=== PATIENT | female | born 1935 | race Caucasian/White ===

== ENCOUNTER → 2023-04-15 13:17 | Outpatient (REF) | payer OTHER, SELFPAY | LOC: WDC 13:17 | PROVIDERS: ATTENDING PHYSICIAN Student in an Organized Health Care Education/Training Program | DX: Z12.31 Encounter for screening mammogram for malignant neoplasm of breast (principal) | CPT/HCPCS: 77063; 77067 ==

== ENCOUNTER → 2023-05-02 10:36 | Outpatient (REF) | payer OTHER, SELFPAY ==
[2023-05-02 12:53] LABS: ALT (SGPT) 36 U/L (0-35); AST (SGOT) 37 U/L (14-36); Albumin 4.4 g/dl (3.5-5.0); Alkaline Phosphatase 94 U/L (38-126); Blood Urea Nitrogen 26 mg/dl (7-17); Calcium 10.1 mg/dl (8.4-10.2); Carbon Dioxide 26 mmol/L (22-30); Chloride 103 mmol/L (98-107); Glucose 101 mg/dl (70-99); Potassium 4.3 mmol/L (3.5-5.1); Sodium 142 mmol/L (135-145); Total Bilirubin 1.1 mg/dl (0.2-1.3); Total Protein 7.5 g/dl (6.3-8.2)
[2023-05-02 13:30] LABS: Folate 12.6 ng/ml (2.76-20); Vitamin B12 277 pg/ml (239-931)
[2023-05-02 13:32] LABS: % Basophils 0.5 % (0-2); % Eosinophils 2.9 % (0-6); % Immature Granulocytes 0.4 % (0-0.5); % Lymphocytes 20.4 % (20.5-51.1); % Monocytes 7.7 % (1.7-9.3); % Neutrophils 68.1 % (42.2-75.2); Absolute Eosinophils 0.2 10^3/uL (0-0.7); Absolute Lymphocytes 1.6 10^3/uL (1.2-3.4); Absolute Monocytes 0.6 10^3/uL (0.1-0.6); Absolute Neutrophils 5.5 10^3/uL (1.4-6.5); Hematocrit 40.2 % (37.0-47.0); Hemoglobin 12.9 g/dL (12.0-16.0); Mean Corp Hgb Conc. 32.1 g/dL (33.0-37.0); Mean Corpuscular Volume 93.5 fL (81.0-99.0); Mean Platelet Volume 11.6 fL (7.4-10.4); Nucleated Red Blood Cells % 0 %; Platelet Count 312 10^3/uL (130-400); Red Cell Dist. Width 13.7 % (11.5-14.5)
== END ==
LOC: REG 10:36
PROVIDERS: ATTENDING PHYSICIAN Psychiatry & Neurology Neurology; FAMILY PHYSICIAN Student in an Organized Health Care Education/Training Program
DX: R41.3 Other amnesia (principal)
CPT/HCPCS: 36415; 80053; 82607; 82746; 84443; 85025

== ENCOUNTER → 2023-07-03 09:34 | Outpatient (REF) | payer OTHER, SELFPAY ==
[2023-07-03 10:46] LABS: % Basophils 0.6 % (0-2); % Eosinophils 2.3 % (0-6); % Immature Granulocytes 0.3 % (0-0.5); % Lymphocytes 18.4 % (20.5-51.1); % Monocytes 7.1 % (1.7-9.3); % Neutrophils 71.3 % (42.2-75.2); Absolute Basophils 0.1 10^3/uL (0-0.2); Absolute Eosinophils 0.2 10^3/uL (0-0.7); Absolute Lymphocytes 1.6 10^3/uL (1.2-3.4); Absolute Monocytes 0.6 10^3/uL (0.1-0.6); Absolute Neutrophils 6.1 10^3/uL (1.4-6.5); Hemoglobin 13.1 g/dL (12.0-16.0); Mean Corp Hgb Conc. 32.8 g/dL (33.0-37.0); Mean Corpuscular Volume 91.5 fL (81.0-99.0); Mean Platelet Volume 10.9 fL (7.4-10.4); Nucleated Red Blood Cells % 0 %; Platelet Count 277 10^3/uL (130-400); Red Blood Cell Count 4.37 10^6/uL (4.20-5.40); Red Cell Dist. Width 13.1 % (11.5-14.5); White Blood Cell Count 8.6 10^3/uL (4.8-10.8)
[2023-07-03 11:17] LABS: ALT (SGPT) 34 U/L (0-35); AST (SGOT) 37 U/L (14-36); Albumin 4.5 g/dl (3.5-5.0); Alkaline Phosphatase 83 U/L (38-126); Blood Urea Nitrogen 25 mg/dl (7-17); Carbon Dioxide 28 mmol/L (22-30); Chloride 103 mmol/L (98-107); Glucose 97 mg/dl (70-99); Potassium 4.5 mmol/L (3.5-5.1); Sodium 141 mmol/L (135-145); Total Bilirubin 0.9 mg/dl (0.2-1.3); Total Protein 7.6 g/dl (6.3-8.2); eGFR 44.08
== END ==
LOC: RAD 09:34
PROVIDERS: ATTENDING PHYSICIAN Internal Medicine; FAMILY PHYSICIAN Student in an Organized Health Care Education/Training Program
DX: Z13.820 Encounter for screening for osteoporosis (principal); M81.0 Age-related osteoporosis without current pathological fracture; E55.9 Vitamin D deficiency, unspecified; M06.4 Inflammatory polyarthropathy; M15.9 Polyosteoarthritis, unspecified
CPT/HCPCS: 36415; 77080; 80053; 85025

== ENCOUNTER → 2023-11-06 10:15 | Outpatient (REF) | payer OTHER, SELFPAY | LOC: RCS 10:15 | PROVIDERS: ATTENDING PHYSICIAN Nuclear Medicine Nuclear Cardiology; FAMILY PHYSICIAN Family Medicine | DX: I48.91 Unspecified atrial fibrillation (principal); R55 Syncope and collapse; I34.0 Nonrheumatic mitral (valve) insufficiency; I08.0 Rheumatic disorders of both mitral and aortic valves; I42.9 Cardiomyopathy, unspecified | CPT/HCPCS: 71046; 93306 ==

== ENCOUNTER → 2024-02-22 07:14 | Outpatient (REF) | payer OTHER, SELFPAY ==
[2024-02-22 09:11] LABS: ALT (SGPT) 20 U/L (0-35); AST (SGOT) 24 U/L (14-36); Albumin 4.2 g/dl (3.5-5.0); Alkaline Phosphatase 78 U/L (38-126); Blood Urea Nitrogen 23 mg/dl (7-17); Calcium 9.4 mg/dl (8.4-10.2); Carbon Dioxide 28 mmol/L (22-30); Chloride 101 mmol/L (98-107); Glucose 96 mg/dl (70-99); HDL Cholesterol 73 mg/dl; LDL Cholesterol, Calculated 65 mg/dl; Potassium 3.9 mmol/L (3.5-5.1); Sodium 141 mmol/L (135-145); Total Bilirubin 0.7 mg/dl (0.2-1.3); Total Cholesterol 162 mg/dl (50-199); Total Protein 7.1 g/dl (6.3-8.2); Triglyceride 123 mg/dl (10-149); Very Low Density Lipoprotein 24 mg/dl (0-30); eGFR 36.64
== END ==
LOC: REG 07:14
PROVIDERS: ATTENDING PHYSICIAN Nuclear Medicine Nuclear Cardiology
DX: I10 Essential (primary) hypertension (principal); E78.5 Hyperlipidemia, unspecified
CPT/HCPCS: 36415; 80053; 80061

== ENCOUNTER → 2024-04-21 10:35 | Outpatient (REF) | payer OTHER, SELFPAY | LOC: WDC 10:35 | PROVIDERS: ATTENDING PHYSICIAN Family Medicine | DX: Z12.31 Encounter for screening mammogram for malignant neoplasm of breast (principal) | CPT/HCPCS: 77063; 77067 ==

== ENCOUNTER 2024-09-18 19:05 | Inpatient (IN) | payer OTHER, SELFPAY ==
[2024-09-18] VITALS (21 sets, daily range): BP systolic 129–152; BP diastolic 66–118; BMI 23.4; BMI 22.7
[2024-09-18 11:53] LABS: Hematocrit 36.3 % (37.0-47.0); Hemoglobin 11.9 g/dL (12.0-16.0); Mean Corp Hgb Conc. 32.8 g/dL (33.0-37.0); Mean Corpuscular Volume 89.0 fL (81.0-99.0); Nucleated Red Blood Cells % 0 %; Platelet Count 249 10^3/uL (130-400); Red Cell Dist. Width 13.6 % (11.5-14.5)
[2024-09-18 12:10] LABS: ALT (SGPT) 34 U/L (0-35); AST (SGOT) 30 U/L (14-36); Albumin 4.1 g/dl (3.5-5.0); Alkaline Phosphatase 92 U/L (38-126); Blood Urea Nitrogen 24 mg/dl (7-17); Calcium 9.2 mg/dl (8.4-10.2); Carbon Dioxide 23 mmol/L (22-30); Chloride 105 mmol/L (98-107); Glucose 142 mg/dl (70-99); Potassium 3.8 mmol/L (3.5-5.1); Sodium 138 mmol/L (135-145); Total Protein 7.0 g/dl (6.3-8.2); eGFR 48.63
[2024-09-18 12:33] LABS: Troponin I 0.050 ng/ml
--- NOTE | 2024-09-18 13:02 | ED.GENMED ---
History of Present Illness
General
Chief Complaint: Weakness
Source: patient
Exam Limitations: none
Time Seen by Provider: 09/18/24 12:57
Nursing documentation reviewed up to this point in time: agreed with
History of Present Illness
History of Present Illness:
Patient is 89-year-old female with history of A-fib, CHF hypertension left bundle branch block left breast cancer presents to the ER for evaluation of weakness. Patient has been weak for months of most a year. She also reports she has had
intermittent discomfort in her chest for months worse over the past 2 weeks this is not new. She denies chest pain now. This morning she felt very weak and called her daughter to come to the hospital. She denies any associated fever or chills.
Denies any weight loss. She denies any recent fever chills cough. She does have nausea after eating and therefore has not been eating a lot.
Family at bedside and they all agree with the patient that she despite having weakness for months has been more weak over the past 1 to 2 weeks. She has not been eval by her family doctor for this.
She denies any shortness of breath. She does take Eliquis for A-fib and has not missed a dose. She is unaware that she is in A-fib but believes she is in chronic A-fib.
Past History
Past History
ED Past Medical History: Arrthythmia, Cancer, CHF and HTN
ED Past Surgical History: Other (Lumpectomy)
Social History
Tobacco: Non-smoker
Alcohol: Daily
Drug: None
Personal: Other (With daughter)
Living: alone
Employment: Retired
Family History
Family History: Other (Noncontributory)
Phy Exam
General Physical Exam
General Presentation: no apparent distress
General age: appears stated age
General Skin: warm and dry
General Habitus: normal
General Mental: alert
General Hydration: appears well hydrated
Cardiovascular Exam
Cardiovascular Exam: no murmur, normal peripheral pulses and irregularly irregular
Pulmonary Exam
Pulmonary Exam: lungs clear and no respiratory distress
Neurological Exam
Neurological Exam: alert and oriented x3
Musculoskeletal Exam
Musculoskeletal Exam: full ROM
Skin Exam
Skin Exam: normal color and warm/dry
Psychiatric Exam
Psychiatric Exam: normal mood/affect
Course
Orders/Labs/Results
Orders:
Orders
09/18/24 11:20
Electrocardiogram (*1) Urgent
Reason for Study: Chest Pain
EKG- Treatment ONCE
09/18/24 11:47
Complete Blood Count/With Diff Urgent
Comprehensive Metabolic Panel Urgent
Lipase Urgent
Comment: ADD ON
Pro-BNP [NT-proBNP] Urgent
TSH Reflex To Free T4 Urgent
Troponin I Urgent
09/18/24 13:23
Add On- LAB Urgent
Tests Added?: tsh with reflexive t4
UA Reflex to Culture [Urinalysis Reflex To Culture] Urgent
Date Specimen was Collected: 09/18/24
Time Specimen was Collected: 14:55
09/18/24 14:41
Chest [CR Chest - 2 Views ] Urgent
Comment:
Reason For Exam: weakness elevated bnp
09/18/24 14:42
Add On- LAB Urgent
Tests Added?: lipase
09/18/24 15:38
Electrocardiogram (*1) Stat
Reason for Study: Other
Other Reason for Exam: chest pain
EKG- Treatment ONCE
09/18/24 15:45
Troponin I Urgent
09/18/24 16:31
Furosemide [Lasix] 40 mg IV NOW STA
09/18/24 16:57
Echo 2D MMode Color/Doppler Routine
Reason for Study: CHF
Abnormal Lab Results
09/18/24 09/18/24
11:47 15:45
RBC 4.08 L 10^6/uL
(4.20-5.40)
Hgb 11.9 L g/dL
(12.0-16.0)
Hct 36.3 L %
(37.0-47.0)
MCHC 32.8 L g/dL
(33.0-37.0)
MPV 11.0 H fL
(7.4-10.4)
Absolute Neuts (auto) 8.4 H 10^3/uL
(1.4-6.5)
Absolute Monos (auto) 0.9 H 10^3/uL
(0.1-0.6)
Neutrophils % 78.9 H %
(42.2-75.2)
Lymphocytes % 11.9 L %
(20.5-51.1)
BUN 24 H mg/dl
(7-17)
Creatinine 1.1 H mg/dL
(0.6-1.0)
Glucose 142 H mg/dl
(70-99)
Total Bilirubin 2.8 H mg/dl
(0.2-1.3)
Troponin I 0.050 H* ng/ml 0.096 H* D ng/ml
09/18/24 11:47
09/18/24 11:47
Vital Signs
Initial and Last Documented VS:
Initial Vital Signs
Temp Pulse Resp BP Pulse Ox
98.3 F 104 16 147/94 98
09/18/24 11:38 09/18/24 11:38 09/18/24 11:38 09/18/24 11:38 09/18/24 11:38
Last Documented Vital Signs
Temp Pulse Resp BP Pulse Ox
98.3 F 101 26 140/85 96
09/18/24 11:38 09/18/24 16:40 09/18/24 15:10 09/18/24 16:40 09/18/24 15:10
MDM/Problems Addressed
Differential Diagnosis Includes:
Not limited to anemia, ACS, dehydration, electrolyte abnormality
MDM/Problems Addressed:
As documented patient is a 89-year-old female with history of A-fib on anticoagulation, CHF, on Lasix presents to the ER for evaluation. She complains of months of weakness family reports weakness worse over the past 1 to 2 weeks. Intermittent
discomfort in her chest for the past 1 to 2 weeks. Cardiac troponin is negative however patient is not asymptomatic now with no chest pain.
Cardiac troponin is elevated however no acute elevation on EKG. Patient is in A-fib believes she is in chronic A-fib she is followed by Dr. Mercado.
Patient's renal function minimally elevated chest x-ray does show mild CHF with an elevated BNP of 15,600. Will admit for elevated troponin weakness CHF. Heart rate intermittently over 100 while here in A-fib. Patient also with elevated BUN
though normal LFTs has had some intermittent decreased appetite and nausea issues with eating
Chronic conditions affecting care:
A-fib on Eliquis, CHF on Lasix
*Radiology
Radiology exam reviewed: radiology read reviewed
*Pulse Oximetry
SaO2: 98
Oxygen Mode of Delivery: Room air
Patient hypoxic: no
*EKG
Interpretation: abnormal
Comparison EKG: no changes
Heart Rate: 104
Rate: tachycardiac
Rhythm: a-fib
QRS Pattern: left bundle branch block
Ischemia: non-specific ST changes
*Critical Care Note
Total Time (30-74mins, 75-104mins- exclusive of procedures): Not Applicable
Data Reviewed
Review of Other/Old Records Reveals: Labs and Discharge Summary
Source: patient and family
Patient Management
Discussion with other providers: [facility] (Dr Parson, cardiology )
ED Attending Note
-
Portions of this chart may have been created with voice recognition software.� Occasional wrong word or��sound alike� substitutions may have occurred due to the inherent limitations of voice recognition software.
Discharge Plan
Departure
Patient Disposition: Admit
Date of Disposition: 09/18/24
Time of Disposition: 16:41
Admit to: Telemetry
Admit to doctor: hospitalist
Presentation/result/management discussed w/ accepting MD/DO: Hospitalist
Patient with high blood pressure during this ER visit?: Yes
Condition: Fair
Covid-19: Not Applicable
Discharge Problem:
Weakness, Chest pain, CHF (congestive heart failure)
Prescriptions:
No Action
PreserVision AREDS-2 1 EACH capsule
1 ea PO BID
metoprolol succinate 100 MG tablet extended release 24 hr
100 mg PO DAILY
amiodarone [Pacerone] 200 MG tablet
200 mg PO DAILY
atorvastatin 10 mg tablet
10 mg PO DAILY
vitamin E 268 mg (400 unit) Capsule
268 mg PO DAILY
spironolactone 25 mg Tablet
12.5 mg PO DAILY
Eliquis 2.5 mg Tablet
2.5 mg PO BID
lisinopril 5 mg Tablet
5 mg PO DAILY
furosemide [Lasix] 20 mg Tablet
10 mg PO DAILY
Referrals:
Maynor Grace DO [Family Provider, Family Practice]
Interventions
Interventions:
*Risk Screen - Suicide Last Done: 09/18/24 11:38
*General Assessment Last Done: 09/18/24 13:48
*Neglect/Abuse Screening Last Done: 09/18/24 13:48
*ED- Fall Risk Assessment Last Done: 09/18/24 13:48
*ED COVID-19 Vaccine History Last Done: 09/18/24 13:48
ED- Cardiac Assessment Last Done: 09/18/24 13:48
ED- Neurological Assessment Last Done: 09/18/24 13:48
ED- Pulmonary Assessment Last Done: 09/18/24 13:48
Discharge Date and Time
Print Language: INDONESIAN
[2024-09-18 15:17] LABS: Lipase 33 U/L (23-300)
[2024-09-18 16:17] LABS: Troponin I 0.096 ng/ml
[2024-09-18] MEDS: LASIX 40 MG IV (16:40)
--- NOTE | 2024-09-18 17:35 | CON.CAR ---
Consultation
Consultation Request
Date/Time Consultation Requested: 09/18/2024, 1640
Date/Time Consultation Performed: 09/18/2024, 1700
Requesting Provider: Juli
Performing Provider: Blank
Reason for Consultation: AFRVR, HF
Medical History
-
Chief Complaint: Fatigue, decreased appetite
History of Present Illness:
Patient is a pleasant 89 female with a past medical history significant for heart failure with recovered EF, hypertension, paroxysmal atrial fibrillation, valvular heart disease including MR, left bundle branch block, dyslipidemia, prior syncope,
chronic amiodarone/anticoagulation who presents due to worsening fatigue, decreased appetite found to be in acute on chronic heart failure and atrial fibrillation with rapid ventricular response. In discussion with patient and her family, she
reports decreased activity, appetite, fatigue for some time. She notes mild discomfort in the chest occurring at rest but does not recur with activity and exertion. She reports that the discomfort is an aching sensation. She denies any PND,
orthopnea, or focal deficits. Patient and family do state that she has significantly decreased appetite but has not noticed weight change. On admission, patient was noted have a BNP of 15,600 and initial troponin of 0.050 which up trended to
0.096. Remaining patient lab work unremarkable. Patient's chest x-ray demonstrated cardiomegaly with mild CHF and filar a small bilateral pleural effusions. EKG on admission demonstrates atrial fibrillation 101 bpm with a bundle branch block.
Review of telemetry demonstrates heart rate 100-130 bpm. Patient is a non-smoker, weekly alcohol, no illicits. Patient has a positive family history of heart disease.
Past Medical History
Past Medical History: Other (See HPI)
Past Surgical History: Other (Orthopedics; appendectomy; lumpectomy; cardioversion 09/2017; cardiac cath 08/2018)
Social History
Tobacco: Non-Smoker
Alcohol: Occasional
Drug: None
Living: Alone
Employment: Retired
Family History
Family History: CAD
Allergies / Home Medications
Allergy/AdvReac Type Severity Reaction Status Date / Time
Penicillins Allergy LEG Verified 09/18/24 11:38
SWELLING
62 YEARS
AGO
�Medication �Instructions �Recorded �Confirmed �Type
metoprolol succinate 100 mg 100 mg PO DAILY 09/30/17 09/18/24 History
tablet,extended release 24 hr
vit C 250 mg-vit E 90 mg-zinc 40 1 ea PO BID 09/30/17 09/18/24 History
mg-copper 1 [id number]
capsule (PreserVision AREDS-2)
amiodarone 200 mg tablet (Pacerone) 200 mg PO DAILY 09/11/18 09/18/24 History
atorvastatin 10 mg tablet 10 mg PO DAILY 11/02/22 09/18/24 History
vitamin E 268 mg (400 unit) capsule 268 mg PO DAILY 11/02/22 09/18/24 History
apixaban 2.5 mg tablet (Eliquis) 2.5 mg PO BID 12/10/22 09/18/24 History
spironolactone 25 mg tablet 12.5 mg PO DAILY 12/10/22 09/18/24 History
furosemide 20 mg tablet (Lasix) 10 mg PO DAILY 09/18/24 09/18/24 History
lisinopril 5 mg tablet 5 mg PO DAILY 09/18/24 09/18/24 History
Review of Systems
-
History Source: Patient
All other systems: Negative unless noted
Constitutional: Fatigue
EENT: No Symptoms
Respiratory: No Symptoms
Cardiac: Chest Pain and Palpitations
Abdomen/GI: Nausea and Anorexia
: No Symptoms
Musculoskeletal: No Symptoms
Skin: No Symptoms
Neurological: No Symptoms
Endocrine: No Symptoms
Hematologic/Lymphatic: No Symptoms
Physical Exam
Vital Signs
Temp Pulse Resp BP Pulse Ox
98.3 F 96 16 140/85 99
09/18/24 11:38 09/18/24 17:15 09/18/24 17:15 09/18/24 16:40 09/18/24 15:30
Lab Results
09/18/24 11:47
09/18/24 11:47
Troponin I 0.096 ng/ml H* D 09/18/24 15:45
Jew-G-Cyuqopxrcqq Pept 51699 pg/ml 09/18/24 11:47
Physical Exam:
GENERAL: no acute distress, cachectic
EYE: sclera anicteric
NECK: Supple, no JVD, no carotid bruit appreciated
ENT: normal nose, moist mucosal membranes
CARDIAC: Irregularly irregular, +S1/S2, 2/6 systolic murmur; no rubs, or gallops
CHEST/PULMONARY: Normal effort, bibasilar crackles
ABDOMEN: Soft, without focal tenderness or distention
NEUROLOGICAL: Alert and oriented x3
SKIN: Warm and dry, no rash
PSYCH: Normal and appropriate interaction.
Impression / Plan
-
PCP: Dr. Shaina Hernandez
Intellectual Property Counsel: Dr Tae Mercado
Impression
Atrial fibrillation with RVR
Acute on chronic heart failure
Hypertension
Cardiomyopathy with recovered EF
Left bundle branch block
Dyslipidemia
Valvular heart disease
GERD
Osteoporosis
Arthritis
Fatigue
Decreased appetite
GLORIA 10/22/2018: Mildly reduced LV systolic function EF 40-45%, biatrial enlargement, moderate eccentric MR, moderate TR, mild AI
Echo 11/06/2023: Small LV size, EF 59%, mild concentric LVH with discrete upper septal thickening, grade 2 diastolic dysfunction, normal RV size and function, moderate MR, mild AI, moderate to severe TR with PASP 74 mmHg
Left heart catheterization 09/17/2018: Nonobstructive CAD, mildly reduced LV systolic function, mitral regurgitation +3
Recommendations:
IV diuresis with Lasix 40 mg daily with strict intake and output, daily weights
Resume home medical therapy including amiodarone
Start cardizem gtt for rate control pending echocardiogram
Trend troponin to peak, if downtrending, can resume OAC; if continue to rise, would start heparin gtt
Check 2D echocardiogram
Infectious workup per primary service
Discussed with nursing, ED SPECIAL EDUCATION ADMINISTRATOR
Data Reviewed
-
EKG: Tracing Personally Visualized and interpreted
Radiology: Report Reviewed by me
Medical Tests (Nuc Med, Echo etc): Report Reviewed by me
Labs: Labs Reviewed by me
Old Records: Reviewed
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
[2024-09-18 18:30] LABS: Urine Character Clear (Clear)
[2024-09-18 18:37] LABS: Urine White Cell 26-30 /HPF (0-5)
[2024-09-18] MEDS: CARDIZEM 125 IV (19:51)
[2024-09-18] MEDS: OCUVITE SOFTGEL 1 CAP PO (21:00)
[2024-09-18 21:53] LABS: Troponin I 0.130 ng/ml
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
[2024-09-18 23:45] LABS: Hematocrit 34.0 % (37.0-47.0); Hemoglobin 11.5 g/dL (12.0-16.0); Mean Corp Hgb Conc. 33.8 g/dL (33.0-37.0); Mean Corpuscular Volume 86.5 fL (81.0-99.0); Platelet Count 232 10^3/uL (130-400); Red Cell Dist. Width 13.8 % (11.5-14.5)
[2024-09-18 23:59] LABS: APTT 33.0 Sec (23.4-35.0)
[2024-09-19] VITALS (8 sets, daily range): BP systolic 105–135; BP diastolic 70–89; BMI 22.4
[2024-09-19] MEDS: HEPARIN 25000 UNITS/250 ML IV
[2024-09-19] MEDS: MELATONIN 3 MG PO ×2 (00:06→23:39)
--- NOTE | 2024-09-19 01:13 | PTCARENOTE ---
Rec'd pt as admission for ED. Pt AAO*3, VSS, and AFIb on TELE monitor. Cardizem started as ordered. Pt trops elevated and rec'd order for heparin, how infusing as ordered. Pt denies any pain or discomfort, agreed to ambulate on with staff
assistance, and now resting with call romero in reach. Pt updated on plan of care. See MAR and flowchart for full pt care and assessment.
[2024-09-19 06:02] LABS: Hematocrit 33.9 % (37.0-47.0); Hemoglobin 11.3 g/dL (12.0-16.0); Mean Corp Hgb Conc. 33.3 g/dL (33.0-37.0); Mean Corpuscular Volume 87.1 fL (81.0-99.0); Nucleated Red Blood Cells % 0 %; Platelet Count 237 10^3/uL (130-400); Red Cell Dist. Width 13.6 % (11.5-14.5)
[2024-09-19 06:04] LABS: APTT 35.4 Sec (23.4-35.0)
[2024-09-19 06:10] LABS: ALT (SGPT) 32 U/L (0-35); AST (SGOT) 28 U/L (14-36); Albumin 3.6 g/dl (3.5-5.0); Alkaline Phosphatase 91 U/L (38-126); Blood Urea Nitrogen 25 mg/dl (7-17); Calcium 8.5 mg/dl (8.4-10.2); Carbon Dioxide 25 mmol/L (22-30); Chloride 105 mmol/L (98-107); Estimated Creatinine Clearance 31 ml/min; Glucose 79 mg/dl (70-99); HDL Cholesterol 44 mg/dl; LDL Cholesterol, Calculated 66 mg/dl; Potassium 3.4 mmol/L (3.5-5.1); Sodium 139 mmol/L (135-145); Total Protein 6.2 g/dl (6.3-8.2); Very Low Density Lipoprotein 18 mg/dl (0-30); eGFR 54.53
[2024-09-19 06:24] LABS: Troponin I 0.120 ng/ml
[2024-09-19] MEDS: KCL 40 MEQ PO ×2 (06:37→09:36)
--- NOTE | 2024-09-19 08:59 | W.PN.CARDCBS ---
Addendum entered and electronically signed by Markell Parson DO 09/19/24 09:40:
I saw and examined the patient.
The Chemistry Specialist's note was reviewed and I agree with the note.
Comment:
Patient resting comfortably in bed, no chest pain, shortness of breath, palpitations or weakness
GEN: No distress, awake, alert, oriented x3
HEENT: supple, anicteric, mmm, EOMI
LUNGS: few crackles bilateral bases, no wheezes/rales
CV: Irreg, S1/S2, no murmur
ABD: soft, BS+, NT/ND
EXT: No cyanosis, clubbing, edema
NEURO: Gross non-focal
SKIN: Warm, pink, dry. No rash
Telemetry AF
A/P as below
Resume beta-bowen, wean Cardizem drip
Continue anticoagulation with heparin
New cardiomyopathy with EF 40-45% and wall motion abnormality, plan for ischemic evaluation tentatively 09/21/2024
IV diuresis; monitor intake and output, daily weights
Original Note:
Today's Communication / Plan
-
Continue IV Lasix
Establish new dry weight
Echo pending
Wean off Cardizem. Resume outpatient Toprol
Continue IV heparin for now
Impression / Plan
-
PCP: Dr. Shaina Hernandez
Director Of Respiratory Therapy: Dr Tae Mercado
Impression
Paroxysmal atrial fibrillation, with RVR
Acute on chronic HFpEF
Hypertension
Cardiomyopathy with recovered EF by echo 2023
Left bundle branch block
Dyslipidemia
Valvular heart disease
GERD
Osteoporosis
Arthritis
Fatigue
Decreased appetite
GLORIA 10/22/2018: Mildly reduced LV systolic function EF 40-45%, biatrial enlargement, moderate eccentric MR, moderate TR, mild AI
Echo 11/06/2023: Small LV size, EF 59%, mild concentric LVH with discrete upper septal thickening, grade 2 diastolic dysfunction, normal RV size and function, moderate MR, mild AI, moderate to severe TR with PASP 74 mmHg
Left heart catheterization 09/17/2018: Nonobstructive CAD, mildly reduced LV systolic function, mitral regurgitation +3
Recommendations:
- Continue IV diuresis. Patient states without significant urine output. She takes Lasix 10 mg daily as an outpatient. Reports a dry weight of 130 pounds, however here 122 pounds if accurate.
- CHF education
- Currently heart rates controlled on IV Cardizem at 5. Will attempt to wean off Cardizem drip. Will resume outpatient Toprol 100 mg daily and follow heart rate control. continue OP amiodarone
- Echocardiogram pending
- Troponin peaked at 0.12. No chest pain. Currently on IV heparin, would consider transitioning back to eliquis if echo looks ok and no plans for inpatient ischemic evaluation
- resume OP lisinopril and spironolactone for history of recovered CM as BP tolerates
- could consider for CV prior to DC if no missed doses as OP
- ambulate as able
Progress Note - Director Of Respiratory Therapy
Subjective
Date of Service: September 19, 2024
No issues reported.
Objective
Labs:
09/19/24 04:46
09/19/24 04:46
Labs
Hgb 11.3 g/dL (12.0-16.0) L 09/19/24 04:46
Hct 33.9 % (37.0-47.0) L 09/19/24 04:46
Plt Count 237 10^3/uL (130-400) 09/19/24 04:46
APTT 35.4 Sec (23.4-35.0) H 09/19/24 04:46
Sodium 139 mmol/L (135-145) 09/19/24 04:46
Potassium 3.4 mmol/L (3.5-5.1) L 09/19/24 04:46
BUN 25 mg/dl (7-17) H 09/19/24 04:46
Creatinine 1.0 mg/dL (0.6-1.0) 09/19/24 04:46
Glucose 79 mg/dl (70-99) 09/19/24 04:46
Troponins
09/18/24 09/18/24 09/18/24
11:47 15:45 21:15
Troponin I 0.050 H* 0.096 H* D 0.130 H* D
09/19/24
04:46
Troponin I 0.120 H*
Vital Signs and I&O:
Vital Signs
Temp Pulse Resp BP Pulse Ox
97.6 F 86 18 135/84 95
09/19/24 07:00 09/19/24 07:00 09/19/24 07:00 09/19/24 06:59 09/19/24 07:00
Vital Signs
Temp Pulse Resp BP Pulse Ox
97.6 F 86 18 135/84 95
09/19/24 07:00 09/19/24 07:00 09/19/24 07:00 09/19/24 06:59 09/19/24 07:00
Intake & Output
09/17/24 09/18/24 09/19/24 09/20/24
07:59 07:59 07:59 07:59
Intake Total 480 / 480
Output Total 300 / 300
Balance 180 / 180
Physical Exam
Physical Exam
GEN: No distress, awake, alert, oriented x3
HEENT: supple, anicteric, mmm, EOMI
LUNGS: few crackles bilateral bases, no wheezes/rales
CV: Irreg, S1/S2, no murmur
ABD: soft, BS+, NT/ND
EXT: No cyanosis, clubbing, edema
NEURO: Gross non-focal
SKIN: Warm, pink, dry. No rash
[2024-09-19] MEDS: LASIX 40 MG IV (09:07)
[2024-09-19] MEDS: OCUVITE SOFTGEL 1 CAP PO ×2 (09:07→20:02)
[2024-09-19] MEDS: LIPITOR 10 MG PO (09:07)
[2024-09-19] MEDS: PACERONE 200 MG PO (09:07)
[2024-09-19] MEDS: FLUSH (NSS) 2 FLUSH IV (09:08)
--- NOTE | 2024-09-19 09:10 | PTCARENOTE ---
The patient is aaox3, vital signs are stable. Afib is noted on the monitor. Diltazem gtt running at 5ml/hr. Heart rates are in the 80s. She complains of 'discomfort' in her chest but 'not pain.' However, she states that she feels much better than
yesterday. Heart failure education reviewed with the patient.
[2024-09-19] MEDS: TOPROL XL 100 MG PO (09:39)
--- NOTE | 2024-09-19 10:27 | PTCARENOTE ---
Diltiazem gtt discontinued
[2024-09-19 12:50] LABS: APTT 62.3 Sec (23.4-35.0)
--- NOTE | 2024-09-19 15:10 | W.PN.HOSP.TC ---
Addendum entered and electronically signed by Ron Gomez MD 09/19/24 16:24:
feel better
rates controlled
for ischemic eval on 09/21 per cardiology
Original Note:
Today's Communication/Plan
-
Daily Weight and I/O monitoring
Restrict Fluid
Continue Lasix 40mg IV
Continue Heparin
Continue to trend Troponin I
Ischemic Evaluation
Replete potassium
Plan: TTE on saturday
Assessment / Plan
Assessment / Plan
89-year-old female with history of paroxysmal atrial Fibrillation , Congestive Heart Failure, left bundle branch block, dyslipidemia, osteoporosis, left breast cancer presents to the ER for evaluation of chronic weakness with recent intermittent
chest discomfort, and palpitations that have gotten worse.
#Atrial Fibrillation with Rapid Ventricular Response
#Severely Dilated Atria secondary to Mod to Severe Mitral Regurgitation
#Elevated Troponin
ECG: ATRIAL FIBRILLATION WITH RAPID VENTRICULAR RESPONSE
LEFT AXIS DEVIATION
LEFT BUNDLE BRANCH BLOCK
Chest xray: Bilateral very small pleural effusions with a small amount of adjacent atelectasis, moderate cardiomegaly,Mild vascular congestion.
TSH: 1.95 N
2D ECHO: Atrial Fibrillation
Normal left ventricular chamber size. Mildly reduced left ventricular systolic
function. Left ventricular ejection fraction is 40-45% by visual assessment.
Septal hypokinesis. The inferior wall appears hypokinetic. Mild concentric left
ventricular hypertrophy. Diastolic function indeterminate. Severely dilated atria.
Mitral annular calcification. Thickened mitral valve leaflets. Mild mitral
stenosis. Peak/mean gradients are 13/5mmHg. Moderate to severe mitral
regurgitation.
Mild aortic regurgitation.
Tricuspid valve opens normally. Moderate tricuspid regurgitation. Estimated
pulmonary artery pressure of 65-70 mmHg. Assuming a right atrial pressure of 8
mmHg.
Normal pericardium without effusion. No pleural effusion present.
Troponin 0.050> repeat 0.96> 0.120
Plan: TTE on saturday
Daily Weight and I/O monitoring
Restrict Fluid
Lasix 40mg IV
-on IV Heparin
-Continue to trend Troponin I
Plan: TTE on saturday
Daily Weight and I/O monitoring
Restrict Fluid
#Hypokalemic
3.4
Given KCL 40 mEq PO x2 doses
Check Magnesium
Continue to monitor K levels
Replete as necessary
#Essential Hypertension
118/75 today
asymptomatic
-Continue IV Lasix 40mg
-Continue Atorvastatin 10mg
-Continue Amiodarone Hcl
#Sleep Disturbance
Continue Melatonin 3mg
DVT Prophylaxis
Anticipated Discharge: > 48 hours
Subjective/Interval History
-
Date of Service: September 19, 2024
Objective Data
-
Labs:
Laboratory Results
09/19/24 09/19/24 09/19/24
04:46 12:28 19:00
WBC 9.6
Hgb 11.3 L
Hct 33.9 L
Plt Count 237
APTT 35.4 H 62.3 H Pending
Sodium 139
Potassium 3.4 L
Chloride 105
Carbon Dioxide 25
BUN 25 H
Creatinine 1.0
Glucose 79
Calcium 8.5
Total Bilirubin 2.2 H
AST 28
ALT 32
Alkaline Phosphatase 91
Vital Signs:
Vital Signs
Temp Pulse Resp BP Pulse Ox
97.8 F 80 16 105/70 95
09/19/24 11:51 09/19/24 12:00 09/19/24 11:51 09/19/24 11:52 09/19/24 11:52
I&O
09/18/24 09/19/24 09/20/24
06:59 06:59 06:59
Intake Total 480 / 480
Output Total 300 / 300
Balance 180 / 180
[2024-09-19 17:08] LABS: Magnesium 2.1 mg/dl (1.6-2.3)
--- NOTE | 2024-09-19 17:56 | PTCARENOTE ---
The patient stated that she felt much better this morning but as the day progressed, she felt more fatigued.
[2024-09-19 19:33] LABS: APTT 92.1 Sec (23.4-35.0)
--- NOTE | 2024-09-19 20:52 | PTCARENOTE ---
Rec'd pt at change of shift. AAO*3. VSS, and AFib on TELE monitor. Pt deneis any pain or discomfort, reenforced on AFIB and CHF education packets. Heparin infusing as ordered. Pt resting with call romero in reach, see MAR and flowchart for full pt
care and assessment.
[2024-09-20] VITALS (8 sets, daily range): BP systolic 120–140; BP diastolic 79–96; BMI 22.2
[2024-09-20 02:21] LABS: Hematocrit 36.8 % (37.0-47.0); Hemoglobin 12.2 g/dL (12.0-16.0); Mean Corp Hgb Conc. 33.2 g/dL (33.0-37.0); Mean Corpuscular Volume 88.5 fL (81.0-99.0); Nucleated Red Blood Cells % 0 %; Platelet Count 256 10^3/uL (130-400); Red Cell Dist. Width 13.8 % (11.5-14.5)
[2024-09-20] MEDS: HEPARIN 25000 UNITS/250 ML IV (02:23)
[2024-09-20 02:30] LABS: APTT 97.6 Sec (23.4-35.0)
[2024-09-20 03:09] LABS: ALT (SGPT) 36 U/L (0-35); AST (SGOT) 31 U/L (14-36); Albumin 3.8 g/dl (3.5-5.0); Alkaline Phosphatase 96 U/L (38-126); Blood Urea Nitrogen 30 mg/dl (7-17); Calcium 9.2 mg/dl (8.4-10.2); Carbon Dioxide 21 mmol/L (22-30); Chloride 108 mmol/L (98-107); Estimated Creatinine Clearance 31 ml/min; Glucose 101 mg/dl (70-99); Potassium 4.5 mmol/L (3.5-5.1); Sodium 138 mmol/L (135-145); Total Protein 6.8 g/dl (6.3-8.2); eGFR 54.53
[2024-09-20] MEDS: TOPROL XL 100 MG PO (08:53)
[2024-09-20] MEDS: LIPITOR 10 MG PO (08:53)
[2024-09-20] MEDS: PACERONE 200 MG PO (08:53)
[2024-09-20] MEDS: OCUVITE SOFTGEL 1 CAP PO ×2 (08:53→22:35)
[2024-09-20] MEDS: LASIX 40 MG IV (08:54)
--- NOTE | 2024-09-20 09:59 | W.PN.CARDCBS ---
Today's Communication / Plan
-
IV heparin
Continue oral beta-bowen
N.p.o. after midnight for possible left heart catheterization 09/2024
Impression / Plan
-
PCP: Dr. Shaina Hernandez
Coremaker Bench: Dr Tae Mercado
Impression
Paroxysmal atrial fibrillation, with RVR, improving rate
Acute on chronic HFpEF
Hypertension
Cardiomyopathy with recovered EF by echo 2023
Left bundle branch block
Dyslipidemia
Valvular heart disease
GERD
Osteoporosis
Arthritis
Fatigue
Decreased appetite
GLORIA 10/22/2018: Mildly reduced LV systolic function EF 40-45%, biatrial enlargement, moderate eccentric MR, moderate TR, mild AI
Echo 11/06/2023: Small LV size, EF 59%, mild concentric LVH with discrete upper septal thickening, grade 2 diastolic dysfunction, normal RV size and function, moderate MR, mild AI, moderate to severe TR with PASP 74 mmHg
Echo 09/18/2024: Normal LV size, mildly reduced LV systolic function with EF 40-45%, septal, inferior hypokinesis, mild concentric LVH, normal RV size and function, MAC, mild MS, mild to severe MR, mild AI, moderate TR with PASP 65 to 70 mmHg
Left heart catheterization 09/17/2018: Nonobstructive CAD, mildly reduced LV systolic function, mitral regurgitation +3
Recommendations:
- Continue IV diuresis. Patient states without significant urine output. She takes Lasix 10 mg daily as an outpatient. Reports a dry weight of 130 pounds, however here 122 pounds if accurate.
- CHF education
- Continue outpatient Toprol 100 mg daily and follow heart rate control, continue OP amiodarone; improving rate
- Troponin peaked at 0.12. No chest pain. Currently on IV heparin, in the setting of new cardiomyopathy, will plan for left heart catheterization on 09/21/2024, n.p.o. after midnight
- resume OP lisinopril and spironolactone for history of recovered CM as BP tolerates
- could consider for CV prior to DC if no missed doses as OP
- ambulate as able
Progress Note - Coremaker Bench
Subjective
Date of Service: September 20, 2024
Patient seen and examined. No acute events overnight. Patient resting comfortably. Patient denies chest pain, shortness of breath, palpitations, weakness.
Objective
Labs:
09/20/24 02:11
09/20/24 02:11
Labs
Hgb 12.2 g/dL (12.0-16.0) 09/20/24 02:11
Hct 36.8 % (37.0-47.0) L 09/20/24 02:11
Plt Count 256 10^3/uL (130-400) 09/20/24 02:11
APTT 97.6 Sec (23.4-35.0) H 09/20/24 02:11
Sodium 138 mmol/L (135-145) 09/20/24 02:11
Potassium 4.5 mmol/L (3.5-5.1) D 09/20/24 02:11
BUN 30 mg/dl (7-17) H 09/20/24 02:11
Creatinine 1.0 mg/dL (0.6-1.0) 09/20/24 02:11
Glucose 101 mg/dl (70-99) H 09/20/24 02:11
Troponins
09/18/24 09/18/24 09/18/24
11:47 15:45 21:15
Troponin I 0.050 H* 0.096 H* D 0.130 H* D
09/19/24
04:46
Troponin I 0.120 H*
Vital Signs and I&O:
Vital Signs
Temp Pulse Resp BP Pulse Ox
97.7 F 91 20 140/87 94
09/20/24 07:24 09/20/24 02:13 09/20/24 07:24 09/20/24 02:13 09/20/24 07:24
Vital Signs
Temp Pulse Resp BP Pulse Ox
97.7 F 91 20 140/87 94
09/20/24 07:24 09/20/24 02:13 09/20/24 07:24 09/20/24 02:13 09/20/24 07:24
Intake & Output
09/18/24 09/19/24 09/20/24 09/21/24
06:59 06:59 06:59 06:59
Intake Total 480 / 480
Output Total 300 / 300 1000 / 1000
Balance 180 / 180 -1000 / -1000
Physical Exam
Physical Exam
GEN: No distress, awake, alert, oriented x3
HEENT: supple, anicteric, mmm, EOMI
LUNGS: few crackles bilateral bases, no wheezes/rales
CV: Irreg, S1/S2, no murmur
ABD: soft, BS+, NT/ND
EXT: No cyanosis, clubbing, edema
NEURO: Gross non-focal
SKIN: Warm, pink, dry. No rash
Telemetry AF
--- NOTE | 2024-09-20 11:45 | W.PN.HOSP.TC ---
Addendum entered and electronically signed by Ron Gomez MD 09/20/24 17:16:
Seen and exmplained. No new complaints. No acute overnight events.
Sitting comfortably in bedside chair.
Continue IV heparin drip
Plan for left heart catheterization with interventional cardiology
Continue oral beta-bowen
N.p.o. after midnight
LLE swelling noted, ongoing and chronic since she was in her 22 when she broke her ankle
Original Note:
Today's Communication/Plan
-
Daily Weight and I/O monitoring
Restrict Fluid
Continue Lasix 40mg IV
Continue Heparin
Ischemic Evaluation and TTE saturday
Assessment / Plan
Assessment / Plan
89-year-old female with history of paroxysmal atrial Fibrillation , Congestive Heart Failure, left bundle branch block, dyslipidemia, osteoporosis, left breast cancer presents to the ER for evaluation of chronic weakness with recent intermittent
chest discomfort, and palpitations that have gotten worse.
#Atrial Fibrillation with Rapid Ventricular Response
#Severely Dilated Atria secondary to Mod to Severe Mitral Regurgitation
#Elevated Troponin
ECG: ATRIAL FIBRILLATION WITH RAPID VENTRICULAR RESPONSE
LEFT AXIS DEVIATION
LEFT BUNDLE BRANCH BLOCK
Chest xray: Bilateral very small pleural effusions with a small amount of adjacent atelectasis, moderate cardiomegaly,Mild vascular congestion.
TSH: 1.95 N
2D ECHO: Atrial Fibrillation
Normal left ventricular chamber size. Mildly reduced left ventricular systolic
function. Left ventricular ejection fraction is 40-45% by visual assessment.�
Septal hypokinesis. The inferior wall appears hypokinetic. Mild concentric left
ventricular hypertrophy. Diastolic function indeterminate. Severely dilated atria.
Mitral annular calcification. Thickened mitral valve leaflets. Mild mitral
stenosis. Peak/mean gradients are 13/5mmHg. Moderate to severe mitral
regurgitation.
Mild aortic regurgitation.
Tricuspid valve opens normally. Moderate tricuspid regurgitation. Estimated
pulmonary artery pressure of 65-70 mmHg. Assuming a right atrial pressure of 8
mmHg.
Normal pericardium without effusion. No pleural effusion present.
Troponin 0.050> repeat 0.96> 0.120
Lasix 40mg IV
Start Toprol 100mg
IV Heparin� PTT 97.6
Daily Weight and I/O monitoring
Restrict Fluid
Plan: TTE on saturday
Ischemic evaluation- 09/21/2024
#Hypokalemic
4.5 now, stable, magnesium 2.1
Continue to monitor K levels
Replete as necessary
#Essential Hypertension
140/87
asymptomatic
-Continue IV Lasix 40mg
-Continue Atorvastatin 10mg
-Continue Amiodarone Hcl
-considering to resume lisinopril and spironolactone for BP control
#Sleep Disturbance
Continue Melatonin 3mg
DVT Prophylaxis
Anticipated Discharge: > 48 hours
Subjective/Interval History
-
Date of Service: September 20, 2024
The patient feels less weak that when she was admitted so she been trying to sit out of bed more and ambulate around with assistance. No palpitation or chest discomfort noted
Objective Data
-
Labs:
Laboratory Results
09/20/24
02:11
WBC 9.2
Hgb 12.2
Hct 36.8 L
Plt Count 256
APTT 97.6 H
Sodium 138
Potassium 4.5 D
Chloride 108 H
Carbon Dioxide 21 L
BUN 30 H
Creatinine 1.0
Glucose 101 H
Calcium 9.2
Total Bilirubin 2.0 H
AST 31
ALT 36 H
Alkaline Phosphatase 96
Vital Signs:
Vital Signs
Temp Pulse Resp BP Pulse Ox
97.7 F 91 20 140/87 94
09/20/24 07:24 09/20/24 02:13 09/20/24 07:24 09/20/24 02:13 09/20/24 07:24
I&O
09/19/24 09/20/24 09/21/24
06:59 06:59 06:59
Intake Total 480 / 480
Output Total 300 / 300 1000 / 1000
Balance 180 / 180 -1000 / -1000
Review of Systems
-
History Source: Patient
Constitutional: Reports Fatigue (improved than when she was first admitted) and Other (Denies fever, chills)
EENT: Reports No Symptoms Reported
Respiratory: Reports Other (Denies cough, trouble breathing, wheezing)
Cardiac: Reports Other (Denies chest pain, palpitation, syncope)
Abdomen/GI: Reports Other (Denies abdominal pain, nausea, vomiting)
Genitourinary: Reports Other (Denies dysuria, flank pain)
Musculoskeletal: Reports Other (Denies edema)
Neuro: Reports Other (Denies headache, dizziness, numbness, ataxia)
Hematologic / Lymphatic: Reports Other (Denies bleeding)
Physical Exam
-
General: No Apparent Distress, Comfortable and Conversant
HEENT: Normocephalic and Atraumatic
Respiratory: Clear to Auscultation and Non Labored Respirations
Cardiac: S1/S2 and Irregular Rhythm
Breast: Deferred by me
GI: Soft, Nontender, Nondistended and Normal Bowel Sounds
Rectal: Deferred by Provider
Musculoskeletal: No Cyanosis and No Edema
Skin: Warm
Neuro: AO x 3
Psych: Calm
--- NOTE | 2024-09-20 12:00 | PTCARENOTE ---
no change from previous assessment
--- NOTE | 2024-09-20 14:20 | PTCARENOTE ---
Addendum entered by Gerson Michael RN 09/20/24 15:35:
Recieved d pt at change of shift. AAOx4 w/o complaints of pain; AFib on monitor, VSS; AFIB and CHF & cath discussed w/ patient. Heparin infusing; see flowsheet for detailed assessment.
Original Note:
Recieved d pt at change of shift. AAOx4 w/o complaints of pain; AFib on monitor, VSS; AFIB and CHF & ablation discussed w/ patient. Heparin infusing; see flowsheet for detailed assessment.
--- NOTE | 2024-09-20 15:35 | PTCARENOTE ---
no change from previous assessment
--- NOTE | 2024-09-20 20:53 | PTCARENOTE ---
assumed care of patient at the change of shift. resting in bed comfortably. offers no complaints. Afib on tele 90s-100s. bp stable. heparin gtt infusing per protocol. oob x1 with the rolling walker. calls for assistance. NPO at midnight for a
cardiac cath. patient verbalized understanding. call romero within reach.
[2024-09-20] MEDS: MELATONIN 3 MG PO (22:35)
[2024-09-21] VITALS (17 sets, daily range): BP systolic 97–142; BP diastolic 54–91; BMI 22.0
[2024-09-21] MEDS: HEPARIN 25000 UNITS/250 ML IV (01:55)
[2024-09-21 05:11] LABS: Hematocrit 38.8 % (37.0-47.0); Hemoglobin 12.4 g/dL (12.0-16.0); Mean Corp Hgb Conc. 32.0 g/dL (33.0-37.0); Mean Corpuscular Volume 89.8 fL (81.0-99.0); Nucleated Red Blood Cells % 0 %; Platelet Count 295 10^3/uL (130-400); Red Cell Dist. Width 13.7 % (11.5-14.5)
[2024-09-21 05:15] LABS: APTT 108.2 Sec (23.4-35.0)
[2024-09-21 05:22] LABS: ALT (SGPT) 30 U/L (0-35); AST (SGOT) 24 U/L (14-36); Albumin 3.7 g/dl (3.5-5.0); Alkaline Phosphatase 99 U/L (38-126); Blood Urea Nitrogen 32 mg/dl (7-17); Calcium 9.4 mg/dl (8.4-10.2); Carbon Dioxide 24 mmol/L (22-30); Chloride 105 mmol/L (98-107); Estimated Creatinine Clearance 28 ml/min; Glucose 106 mg/dl (70-99); Potassium 4.1 mmol/L (3.5-5.1); Sodium 138 mmol/L (135-145); Total Protein 6.6 g/dl (6.3-8.2); eGFR 48.63
[2024-09-21] MEDS: LASIX 40 MG IV ×2 (09:08→16:52)
[2024-09-21] MEDS: PACERONE 200 MG PO (09:09)
[2024-09-21] MEDS: OCUVITE SOFTGEL 1 CAP PO (09:09)
[2024-09-21] MEDS: TOPROL XL 100 MG PO (09:09)
[2024-09-21] MEDS: LIPITOR 10 MG PO (09:09)
--- NOTE | 2024-09-21 11:23 | ITS.CL.CATH ---
Commercial Field Inspector - Catheterization
Cardiac Catheterization
Procedure Report:
LEFT AND RIGHT HEART CATHETERIZATION
Date of Procedure: September 21, 2024
Referring: Teddy Tamayo.
PROCEDURES:
1. Left heart catheterization, coronary angiogram.
2. Moderate sedation.
3. Right heart catheterization.
INDICATION: New cardiomyopathy and mild troponin elevation concerning for NSTEMI and possibly ischemic cardiomyopathy. Also found on echo to have moderate to severe mitral regurgitation
ACCESS: Right radial artery, 6Fr. sheath, under US guidance.
Right brachial vein, 6 Bengali sheath, under ultrasound guidance.
HEMODYNAMICS : (mmHg)
RA (m) : 12
RV (s/d,m) : 38/7, 11
PA (s/d, m) : 38/23, 29
PCWP (m) : 18
PA saturation: 46.0% on room air
AO saturation: 93.1% on room air
RA saturation: 46.1% on room air
Cardiac Output : 2.57 L/min
Cardiac Index : 1.7 L/min/m-2
Systemic vascular resistance: 3356 dsc^(-5)
Pulmonary vascular resistance: 4.66 dunham unit
AO (s/d) : 129/84
LVEDP : 18
No significant gradient across the aortic valve to suggest aortic stenosis.
CORONARY FINDINGS
Dominance: Codominant
Left Main Trunk (LMT): Large caliber vessel that gives rise to the LAD and LCx branches and is free of angiographic disease.
Left Anterior Descending Artery (LAD): Large caliber vessel that gives off 1 major diagonal branch as it courses along the anterior inter-ventricular groove before wrapping around the cardiac apex. Mid LAD at the level of the takeoff of a small to
medium caliber diagonal branch has 30% stenosis. Ostial D1 has 50% stenosis.
Left Circumflex Artery (LCx): Large caliber codominant vessel that gives off 2 major obtuse marginal (OM) branches as it courses along the atrio-ventricular (AV) groove. The LCx and its branches are free of angiographic disease.
Right Coronary Artery (RCA): Large caliber dominant vessel that gives rise to the posterior descending artery (RPDA) and postero-lateral ventricular (RPLV) branches distally. Proximal portion of the RCA appears ectatic but otherwise no focal
obstructive lesions.
SEDATION: 47 minutes of procedural sedation was utilized. IV Midazolam and IV Fentanyl were administered. An independent medical research assistant was present to assist with and help manage the patient's level of consciousness and physiologic status.
RADIATION SUMMARY: Fluoro Time (min): 5.0, Dose (mGy): 195.59, DAP (Gy.cm2) : 12.65
Closure Device: There were no immediate intra-procedural complications. The sheath was pulled in the greenhouse laborer and a vascular-band applied to the right wrist for radial artery hemostasis using the patent hemostasis technique.
CONCLUSIONS
1. Non-obstructive coronary artery disease.
2. Significantly elevated right and left-sided filling pressures with reduced cardiac output and severely elevated systemic vascular resistance.
RECOMMENDATIONS
1. Wean radial band per protocol. Monitor right hand perfusion and for bleeding from the radial site following removal of the vascular-band following trans-radial access.
2. Continue aggressive medical therapy and risk factor modification for secondary CAD prevention.
3. Hydrate with normal saline to mitigate the risk of contrast-induced acute kidney injury.
4. Aggressive IV diuresis and optimization of goal-directed medical therapy for underlying nonischemic cardiomyopathy.
5. Eventual referral for outpatient cardiac rehab.
Copy to: Teddy Baker. and Benito Parson D.O.
Glo Bell MD, [facility], [facility]
[2024-09-21] MEDS: ZESTRIL 2.5 MG PO (16:52)
--- NOTE | 2024-09-21 17:07 | CM ---
spoke to pt dilma, he is prev indep, lives with his GF in a 2 story home with 6 steps to enter. he denies any dc planning needs or dme's. plan is for dc to home when medically stable.
--- NOTE | 2024-09-21 17:11 | CM ---
spoke to pt in room, she is prev indep, lives alone in a 1 story home with no steps toenter,. she denies any dc planning needs or dmes. plan is for dc to home when medically stable.
--- NOTE | 2024-09-21 18:11 | W.PN.HOSP.TC ---
Addendum entered and electronically signed by Davie Leon MD 09/21/24 20:40:
Attending Addendum-
I saw and evaluated the patient. I reviewed the resident�s note and agree with findings and plan as documented in the resident�s note. Sub: Feels fatigued and has WOOD. Feels anxious due to procedure. Denies palps cp. Full 12 point ROS reviewed and
negative except as documented Exam: Vitals reviewed in chart GEN-NAD heart irreg irreg lungs SM @ apex 3/6 Lungs fine crackles at bases abd soft LE +1 pitting edema B/L
Plan:
#A-fib with RVR/paroxysmal A-fib
- TTE 09/18-When compared to prior study on 11/06/2023, patient in AF, LVEF 40-45% (prev 59%) with septal/inferior hypokinesis; MR is mod-severe, PASP is 65-70 mmHg (prev 74 mmHg)
- cont amiodarone and metoprolol
- cont hep gtt transition back to Eliis when able
- TSH within normal limits
- monitor closely on tele
# AE HFmrEF (new)
-I/O, daily weights
-reduced ef 40-45%
-IV Lasix
-Fluid restrict
-GDMT restart spironolactone ORALIA when able
# Elevated troponin concern for possible ACS vs Type 2 demand ischemia
- trops have peaked
- cont hep gtt plus BB
- for [facility] 09/21
# HTN�essential
- restart lisinopril when able
- cont metoprolol
#CKD 3a
- Creat 1.1 @ baseline
- Follow BMP
- monitor closely post cath
#Hx chronic LBBB left bundle branch block
#HLD
- cont atorvastatin
Other PMH:
Osteoporosis
macular degeneration
DVT prophylaxis- hep gtt
ACP
Patient consented to discuss, was alone, time spent explanation of advance directives, changes in health status, patient�s health care wishes if the patient becomes unable to make health decisions, goals of care, code status, and prognosis- 16
minutes
Time spent coordinating care, review of plan of care with resident, personally reviewed previous records in EMR, med rec, labs, radiology, d/w nursing, family total time documented is exclusive of any additional time listed that was spent in advance
care planning discussion -� 51 minutes
Original Note:
Today's Communication/Plan
-
Daily Weight and I/O monitoring
Heparin discontinued, switched to Apixaban 2.5mg
Lisinopril 5mg started
Lasix 40 mg IV BID
Post catheterization care c/o cardiology
Assessment / Plan
Assessment / Plan
89-year-old female with history of paroxysmal atrial Fibrillation , Congestive Heart Failure, left bundle branch block, dyslipidemia, osteoporosis, left breast cancer presents to the ER for evaluation of chronic weakness with recent intermittent
chest discomfort, and palpitations that have gotten worse.
#Atrial Fibrillation with Rapid Ventricular Response
#Severely Dilated Atria secondary to Mod to Severe Mitral Regurgitation
#Elevated Troponin
S/P Left heart catheterization, coronary angiogram. Right heart catheterization.
Findings:
Non-obstructive coronary artery disease. Significantly elevated right and left-sided filling pressures with reduced cardiac output and severely elevated systemic vascular resistance.
- Lasix 40mg IV BID
-Toprol 100mg
-Amiodarone Hcl
-started Apixaban 2.5mg
-Daily Weight and I/O monitoring
-Post catheterization care c/o cardiology
past pertinent findings:
2D ECHO: Atrial Fibrillation
Normal left ventricular chamber size. Mildly reduced left ventricular systolic
function. Left ventricular ejection fraction is 40-45% by visual assessment.�
Septal hypokinesis. The inferior wall appears hypokinetic. Mild concentric left
ventricular hypertrophy. Diastolic function indeterminate. Severely dilated atria.
Mitral annular calcification. Thickened mitral valve leaflets. Mild mitral
stenosis. Peak/mean gradients are 13/5mmHg. Moderate to severe mitral
regurgitation.
Mild aortic regurgitation.
Tricuspid valve opens normally. Moderate tricuspid regurgitation. Estimated
pulmonary artery pressure of 65-70 mmHg. Assuming a right atrial pressure of 8
mmHg.
Normal pericardium without effusion. No pleural effusion present.
Troponin 0.050> repeat 0.96> 0.120
#Hypokalemic
4.1 now, stable
Continue to monitor K levels
Replete as necessary
#Essential Hypertension
140/87
asymptomatic
-started on lisinopril 5mg PO
#Hyperlipidemia
-on Atorvastatin 10mg
#Sleep Disturbance
Continue Melatonin 3mg
DVT Prophylaxis
Anticipated Discharge: 24 - 48 hours
Subjective/Interval History
-
Date of Service: September 21, 2024
The patient says she is feeling fine, just tired from being in bed all day. She reports of constipation. No palpitations, headaches, fatigue, chest pain, nausea noted.
Objective Data
-
Vital Signs:
Vital Signs
Temp Pulse Resp BP Pulse Ox
97.3 F 88 16 138/88 97
09/21/24 15:00 09/21/24 16:52 09/21/24 15:00 09/21/24 16:52 09/21/24 15:00
I&O
09/20/24 09/21/24 09/22/24
06:59 06:59 06:59
Intake Total 800 / 800
Output Total 1000 / 1000 1325 / 1325 400 / 400
Balance -1000 / -1000 -525 / -525 -400 / -400
Review of Systems
-
History Source: Patient
Constitutional: Reports Fatigue (improved than when she was first admitted) and Other (Denies fever, chills)
EENT: Reports No Symptoms Reported
Respiratory: Reports Other (Denies cough, trouble breathing, wheezing)
Cardiac: Reports Other (Denies chest pain, palpitation, syncope)
Abdomen/GI: Reports Other (Denies abdominal pain, nausea, vomiting)
Genitourinary: Reports Other (Denies dysuria, flank pain)
Musculoskeletal: Reports Other (Denies edema)
Neuro: Reports Other (Denies headache, dizziness, numbness, ataxia)
Hematologic / Lymphatic: Reports Other (Denies bleeding)
Physical Exam
-
General: No Apparent Distress, Comfortable and Conversant
HEENT: Normocephalic and Atraumatic
Respiratory: Clear to Auscultation and Non Labored Respirations
Cardiac: S1/S2 and Irregular Rhythm
Breast: Deferred by me
GI: Soft, Nontender, Nondistended and Normal Bowel Sounds
Rectal: Deferred by Provider
Musculoskeletal: No Cyanosis and No Edema
Skin: Warm
Neuro: AO x 3
Psych: Calm
--- NOTE | 2024-09-21 18:56 | PTCARENOTE ---
~1100: Handoff report received from Chuckie RABAGO.
~1230: Patient came from CCL. R radial TR band in place, site CDI with no oozing or hematoma noted at this time. AOx4, Afib BBB on tele 80s-100s, RA satting 98%. +pulses, no edema. Pt denies pain at this time. Daughter at bedside. Patient currently
resting. Call romero within reach, all needs met. Messaged [facility] Priscilla Hoffman about lisinopril order since SBP 110s, per Priscilla hold lisinopril until her SBP >120.
~2081-9973: Air removed from TR band per protocol. No oozing or hematoma noted at this time.
~1600: Band removed. Dressing applied, CDI.
~1330-7029: Pt resting in bed. VSS at this time. All needs met at this time, call romero within reach. Handoff report given to christian RN.
[2024-09-21] MEDS: OCUVITE SOFTGEL PO (19:31)
[2024-09-21] MEDS: ELIQUIS 2.5 MG PO (19:32)
--- NOTE | 2024-09-21 21:18 | PTCARENOTE ---
Patient received at change of shift attempting to get out of the bed without her gown on and books thrown on the floor. The patient was yelling out 'help', per the patient she had woken from sleep and could not find her call romero and needed to use
the bathroom. The patient was redressed and ambulated to the bathroom x1 assist. The patient is AOx3, neurological check WDL (pupils 3mm and brisk, upper and lower extremity strength/movement equal, respiratory pattern normal). Atrial fib on the
monitor with a BBB. Oxygen saturation on room air 97%. Right radial and brachial cath sites with gauze and tegaderm C/D/I, radial pulse palpable. The patient did report a brief episode of nausea that passed after drinking some gingerale, the patient
declined any antinausea medication at this time. Denies chest pain. Call romero within reach. Bed in lowest position, wheels locked. The patient is now resting comfortably in the bed. Plan of care discussed. Call romero within reach.
[2024-09-21] MEDS: MELATONIN 3 MG PO (22:43)
[2024-09-22] VITALS (12 sets, daily range): BP systolic 95–157; BP diastolic 73–96; PULSE 109; BMI 21.7
[2024-09-22 03:45] LABS: Hematocrit 39.3 % (37.0-47.0); Hemoglobin 12.9 g/dL (12.0-16.0); Mean Corp Hgb Conc. 32.8 g/dL (33.0-37.0); Mean Corpuscular Volume 87.1 fL (81.0-99.0); Nucleated Red Blood Cells % 0 %; Platelet Count 308 10^3/uL (130-400); Red Cell Dist. Width 13.7 % (11.5-14.5)
[2024-09-22 04:09] LABS: ALT (SGPT) 27 U/L (0-35); AST (SGOT) 22 U/L (14-36); Albumin 4.0 g/dl (3.5-5.0); Alkaline Phosphatase 93 U/L (38-126); Blood Urea Nitrogen 32 mg/dl (7-17); Calcium 9.5 mg/dl (8.4-10.2); Carbon Dioxide 25 mmol/L (22-30); Chloride 102 mmol/L (98-107); Estimated Creatinine Clearance 26 ml/min; Glucose 99 mg/dl (70-99); Potassium 3.8 mmol/L (3.5-5.1); Sodium 140 mmol/L (135-145); Total Protein 7.0 g/dl (6.3-8.2); eGFR 43.81
[2024-09-22] MEDS: LASIX 40 MG IV (08:10)
--- NOTE | 2024-09-22 09:22 | W.PN.CARDCBS ---
Addendum entered and electronically signed by Tae Mercado DO 09/22/24 12:00:
I saw and examined the patient.
The Electromedical Equipment Technician's note was reviewed and I agree with the note.
Comment:
Plan:
Cont IV lasix today and transition to oral Lasix tomorrow, 40 mg daily.
Would make her d/c wt her new dry wt
She is eating less she admits and some of her wt loss may have been nutritional with wt gain that made wt appear even overall as she approached admit
Eliquis resumed post cath
Increase amiodarone to 200 mg BID for 2 weeks then back to 200 mg daily.
Recurrent AFib may have precipitated reduction in EF. She has hx of recovered CM
Cath without obstructive CAD
Outpt follow up arranged.
Likely d/c next 24 hrs if continues to improve
Original Note:
Today's Communication / Plan
-
IV Lasix this morning, then changed to p.o. Lasix for tomorrow morning
Increase amiodarone to 200 mg twice daily for 2 weeks then decrease back to 200 mg daily
Eliquis resumed post cath
Consider resuming outpatient spironolactone in a.m. pending creatinine
For outpatient cardioversion if remains in A-fib
ambulate
Impression / Plan
-
PCP: Dr. Shaina Hernandez
Room Clerk: Dr Tae Mercado
Impression
Paroxysmal atrial fibrillation, with RVR, improving rate
Acute on chronic HFpEF
Hypertension
Cardiomyopathy with recovered EF by echo 2023
Left bundle branch block
Dyslipidemia
Valvular heart disease
GERD
Osteoporosis
Arthritis
Fatigue
Decreased appetite
GLORIA 10/22/2018: Mildly reduced LV systolic function EF 40-45%, biatrial enlargement, moderate eccentric MR, moderate TR, mild AI
Echo 11/06/2023: Small LV size, EF 59%, mild concentric LVH with discrete upper septal thickening, grade 2 diastolic dysfunction, normal RV size and function, moderate MR, mild AI, moderate to severe TR with PASP 74 mmHg
Echo 09/18/2024: Normal LV size, mildly reduced LV systolic function with EF 40-45%, septal, inferior hypokinesis, mild concentric LVH, normal RV size and function, MAC, mild MS, mod to severe MR, mild AI, moderate TR with PASP 65 to 70 mmHg
Left heart catheterization 09/17/2018: Nonobstructive CAD, mildly reduced LV systolic function, mitral regurgitation +3
Recommendations:
- echo this admission with EF 40-45%. she has history of NICM with recovered EF in past. felt most likely to be secondary to recurrence of afib.
- trop peaked at 0.12. no CP. s/p cath 09/21/24 with nonobstructive CAD and wedge of 18 with CI 1.7 and elevated SVR.
- received IV lasix this AM and plan to transition to po in AM.
- diuresed well this admission. weight down 9 pounds from admission if accurate. was on po lasix 10mg daily prior to admission, will plan for DC on po lasix 40mg daily
- She remains in atrial fibrillation with suboptimal rates. Will increase amiodarone to 200 mg twice daily for 2 weeks. continue toprol 100mg daily. if remains in afib in OP setting, consider for CV
- Repeat EKG in a.m. to assess QTc on higher dose amio
- continue eliquis 2.5mg BID, resumed post cath
- OP lisinopril resumed. consider resuming spironolactone in AM pending Cr, 1.2 on 09/22. Could also consider for addition of SGLT2 inhibitor, await creatinine trend
- Will need repeat echo as an outpatient in several months to reevaluate EF as well as degree of MR
- ambulate
- DC planning
- OP cardiac follow up arranged
Progress Note - Room Clerk
Subjective
Date of Service: September 22, 2024
denies palpitations, SOB, CP.
Objective
Labs:
09/22/24 03:13
09/22/24 03:13
Labs
Hgb 12.9 g/dL (12.0-16.0) 09/22/24 03:13
Hct 39.3 % (37.0-47.0) 09/22/24 03:13
Plt Count 308 10^3/uL (130-400) 09/22/24 03:13
APTT 108.2 Sec (23.4-35.0) H 09/21/24 04:42
Sodium 140 mmol/L (135-145) 09/22/24 03:13
Potassium 3.8 mmol/L (3.5-5.1) 09/22/24 03:13
BUN 32 mg/dl (7-17) H 09/22/24 03:13
Creatinine 1.2 mg/dL (0.6-1.0) H 09/22/24 03:13
Glucose 99 mg/dl (70-99) 09/22/24 03:13
Vital Signs and I&O:
Vital Signs
Temp Pulse Resp BP Pulse Ox
98.1 F 97 18 140/89 96
09/22/24 07:49 09/22/24 08:10 09/22/24 07:49 09/22/24 08:10 09/22/24 07:49
Vital Signs
Temp Pulse Resp BP Pulse Ox
98.1 F 97 18 140/89 96
09/22/24 07:49 09/22/24 08:10 09/22/24 07:49 09/22/24 08:10 09/22/24 07:49
Intake & Output
09/20/24 09/21/24 09/22/24 09/23/24
07:59 07:59 07:59 07:59
Intake Total 800 / 800 240 / 240
Output Total 1000 / 1000 1325 / 1325 1600 / 1800 200 / 200
Balance -1000 / -1000 -525 / -525 -1360 / -1560 -200 / -200
Physical Exam
Physical Exam
GEN: No distress, awake, alert, oriented x3
HEENT: supple, anicteric, mmm, EOMI
LUNGS: CTA bilaterally, no wheezes/rales
CV: Irreg, S1/S2, 1/6 syst LSB
ABD: soft, BS+, NT/ND
EXT: No cyanosis, clubbing, edema
NEURO: Gross non-focal
SKIN: Warm, pink, dry. No rash. Right wrist site soft, clean dry and intact
[2024-09-22] MEDS: TOPROL XL 100 MG PO (12:31)
[2024-09-22] MEDS: LIPITOR 10 MG PO (12:37)
[2024-09-22] MEDS: ELIQUIS 2.5 MG PO ×2 (12:37→20:01)
[2024-09-22] MEDS: ZESTRIL 5 MG PO (12:37)
[2024-09-22] MEDS: OCUVITE SOFTGEL 1 CAP PO ×2 (12:37→20:01)
[2024-09-22] MEDS: PACERONE 200 MG PO ×2 (12:38→20:01)
--- NOTE | 2024-09-22 14:19 | PTCARENOTE ---
Discussed pt's diagnosis of atrial fibrillation and amiodarone dose. Encouraged questions. Pt verbalized understanding. A fib booklet given.
--- NOTE | 2024-09-22 15:04 | W.PN.HOSP.TC ---
Addendum entered and electronically signed by Davie Leon MD 09/22/24 20:40:
Attending Addendum-
I saw and evaluated the patient. I reviewed the resident�s note and agree with findings and plan as documented in the resident�s note. Sub: continues to have WOOD and fatigue but improved. Denies palps cp. Full 12 point ROS reviewed and negative
except as documented Exam: Vitals reviewed in chart GEN-NAD heart irreg irreg lungs SM @ apex 3/6 Lungs fine crackles at bases abd soft LE trace edema B/L
Plan:
#A-fib with RVR/paroxysmal A-fib
- TTE 09/18-When compared to prior study on 11/06/2023, patient in AF, LVEF 40-45% (prev 59%) with septal/inferior hypokinesis; MR is mod-severe, PASP is 65-70 mmHg (prev 74 mmHg)
- load amiodarone x 2 weeks then resume daily dosing, cont metoprolol
- hep gtt transitioned back to Eliquis-tolerating
- TSH within normal limits
- monitor closely on tele
- eventual CV as OP
# AE HFmrEF (new) / nonischemic CM
-I/O, daily weights
-reduced ef 40-45%
-cont IV Lasix today with transition to PO in am
-Fluid restrict
-GDMT restart spironolactone ORALIA when able eventual SGLT2
# Elevated troponin/Type 2 demand ischemia/NIMI
- trops peaked
- cont eliquis plus BB
- LHC and RHC- [id number] coronary artery disease.
Significantly elevated right and left-sided filling pressures with reduced cardiac output and severely elevated systemic vascular resistance
- cont diuresis
# HTN�essential
- restart lisinopril
- cont metoprolol
#CKD 3a
- Creat 1.1 @ baseline
- stable
- Follow BMP
- monitor closely post cath
#Hx chronic LBBB left bundle branch block
#HLD
- cont atorvastatin
Other PMH:
Osteoporosis
macular degeneration
CODE- FULL
DVT prophylaxis- eliquis
Dispo- DC home in AM
Time spent coordinating care, review plan of care with resident, personally reviewed planof of care in EMR, med rec consults notes radiology and cath report d/w nursing and cards- 51 mins
Original Note:
Today's Communication/Plan
-
Daily Weight and I/O monitoring
Lasix IV to PO
Amiodarone Hcl 200mg BID for 2 weeks then back to 200mg daily per cardiology
PT/OT following--- suggested Home PT with walker. Encouraged to ambulate with assistance.
Outpatient followup with cardiology next week to increase amiodarone load
Post catheterization care/monitoring
Possible discharge tomorrow
Assessment / Plan
Assessment / Plan
89-year-old female with history of paroxysmal atrial Fibrillation , Congestive Heart Failure, left bundle branch block, dyslipidemia, osteoporosis, left breast cancer presents to the ER for evaluation of chronic weakness with recent intermittent
chest discomfort, and palpitations that have gotten worse.
#Atrial Fibrillation with Rapid Ventricular Response
#Severely Dilated Atria secondary to Mod to Severe Mitral Regurgitation
#Elevated Troponin
S/P Left heart catheterization, coronary angiogram. Right heart catheterization.
Findings:
Non-obstructive coronary artery disease. Significantly elevated right and left-sided filling pressures with reduced cardiac output and severely elevated systemic vascular resistance.
- Lasix 40mg PO daily
-Toprol XI 100mg
-Amiodarone Hcl 200mg PO BID (200mg BID for 2 weeks then back to 200mg daily)
-Apixaban 2.5mg
-PT/OT following--- suggested Home PT with walker. Encouraged to ambulate with assistance.
-Outpatient followup with cardiology next week to increase amiodarone load
-Daily Weight and I/O monitoring
-Post catheterization care c/o cardiology
past pertinent findings:
2D ECHO: Atrial Fibrillation
Normal left ventricular chamber size. Mildly reduced left ventricular systolic
function. Left ventricular ejection fraction is 40-45% by visual assessment.�
Septal hypokinesis. The inferior wall appears hypokinetic. Mild concentric left
ventricular hypertrophy. Diastolic function indeterminate. Severely dilated atria.
Mitral annular calcification. Thickened mitral valve leaflets. Mild mitral
stenosis. Peak/mean gradients are 13/5mmHg. Moderate to severe mitral
regurgitation.
Mild aortic regurgitation.
Tricuspid valve opens normally. Moderate tricuspid regurgitation. Estimated
pulmonary artery pressure of 65-70 mmHg. Assuming a right atrial pressure of 8
mmHg.
Normal pericardium without effusion. No pleural effusion present.
Troponin 0.050> repeat 0.96> 0.120
#Hypokalemic
3.8 now, stable
Continue to monitor K levels
Replete as necessary
#Essential Hypertension
133/88
asymptomatic
-lisinopril 5mg PO
#Hyperlipidemia
-on Atorvastatin 10mg
#Sleep Disturbance
Continue Melatonin 3mg
DVT Prophylaxis
Anticipated Discharge: Within 24 hours
Subjective/Interval History
-
Date of Service: September 22, 2024
The patient reports some fatigue from laying in bed all day. She also admitted to having chronic chest discomfort in the left, lateral side. No weakness, lightheadedness, palpitations noted. Expressed that she would like to go back home or live with
her daughter after discharge.
Objective Data
-
Labs:
Laboratory Results
09/22/24
03:13
WBC 9.0
Hgb 12.9
Hct 39.3
Plt Count 308
Sodium 140
Potassium 3.8
Chloride 102
Carbon Dioxide 25
BUN 32 H
Creatinine 1.2 H
Glucose 99
Calcium 9.5
Total Bilirubin 1.7 H
AST 22
ALT 27
Alkaline Phosphatase 93
Vital Signs:
Vital Signs
Temp Pulse Resp BP Pulse Ox
98.1 F 87 18 126/90 97
09/22/24 07:49 09/22/24 12:35 09/22/24 07:49 09/22/24 12:35 09/22/24 12:35
I&O
09/21/24 09/22/24 09/23/24
06:59 06:59 06:59
Intake Total 800 / 800 240 / 240
Output Total 1325 / 1325 1600 / 1600 200 / 200
Balance -525 / -525 -1600 / -1600 40 / 40
Review of Systems
-
History Source: Patient
Constitutional: Reports Fatigue (improved than when she was first admitted) and Other (Denies fever, chills)
EENT: Reports No Symptoms Reported
Respiratory: Reports Other (Denies cough, trouble breathing, wheezing)
Cardiac: Reports Other (Denies chest pain, palpitation, syncope)
Abdomen/GI: Reports Constipated and Other (Denies abdominal pain, nausea, vomiting)
Genitourinary: Reports Other (Denies dysuria, flank pain)
Musculoskeletal: Reports Other (Denies edema)
Neuro: Reports Other (Denies headache, dizziness, numbness, ataxia)
Hematologic / Lymphatic: Reports Other (Denies bleeding)
Physical Exam
-
General: No Apparent Distress, Comfortable and Conversant
HEENT: Normocephalic and Atraumatic
Respiratory: Clear to Auscultation and Non Labored Respirations
Cardiac: Regular Rhythm and S1/S2
Breast: Deferred by me
GI: Soft, Nontender and Nondistended
Rectal: Deferred by Provider
Musculoskeletal: No Cyanosis and No Edema
Skin: Warm
Neuro: AO x 3
Psych: Calm
--- NOTE | 2024-09-22 15:39 | W.PN.UPDATE ---
Update Note
Progress Note Update
returned to discuss plan to increase amiodarone and reassess need for OP CV at office visit next week to increase amiodarone load and hopefully increase chance of CV success. updated patient's daughter and son in law at bedside as well. total time
of this additional visit 32 minutes
--- NOTE | 2024-09-22 21:31 | PTCARENOTE ---
Rec'd pt at change of shift. Pt AAO*3, VSS, and Afib on TELE monitor. Pt denies any pain or discomfort. Pt ambulating with staff assistance and rolling walker. Pt resting with call romero in reach. See MAR and flowchart for full pt care and
assessment.
[2024-09-22] MEDS: MELATONIN 3 MG PO (22:54)
[2024-09-23] VITALS (7 sets, daily range): BP systolic 93–118; BP diastolic 58–99; BMI 21.7
[2024-09-23 04:08] LABS: Hematocrit 38.4 % (37.0-47.0); Hemoglobin 13.1 g/dL (12.0-16.0); Mean Corp Hgb Conc. 34.1 g/dL (33.0-37.0); Mean Corpuscular Volume 85.7 fL (81.0-99.0); Platelet Count 302 10^3/uL (130-400); Red Cell Dist. Width 13.6 % (11.5-14.5)
[2024-09-23 04:37] LABS: Blood Urea Nitrogen 35 mg/dl (7-17); Calcium 9.7 mg/dl (8.4-10.2); Carbon Dioxide 24 mmol/L (22-30); Chloride 100 mmol/L (98-107); Estimated Creatinine Clearance 21 ml/min; Glucose 88 mg/dl (70-99); Potassium 3.9 mmol/L (3.5-5.1); Sodium 136 mmol/L (135-145); eGFR 33.52
[2024-09-23] MEDS: ELIQUIS 2.5 MG PO (09:41)
--- NOTE | 2024-09-23 09:49 | W.PN.CARDCBS ---
Addendum entered and electronically signed by Tae Mercado DO 09/23/24 15:51:
I saw and examined the patient.
The Tours Captain's note was reviewed and I agree with the note.
Comment:
Plan:
Stable for discharge
Her volume status is improved and she appears euvolemic.
With rising creatinine decrease Lasix to 20 mg daily at discharge. Will reevaluate in follow-up visit next week.
Hold lisinopril and spironolactone for now and consider resuming next week pending creatinine improvement
Check BMP September 28.
Amiodarone increased to 200 mg daily for 2 weeks. Will set up for consideration for cardioversion if she fails to convert on her own, after the next visit.
She remains compliant with anticoagulation.
Discussed with nursing and primary service.
Original Note:
Today's Communication / Plan
-
Amiodarone 200 mg twice daily for 2 weeks then decrease to 200 mg daily
Decrease Lasix to 20 mg daily for DC
Holding lisinopril and spironolactone for now, consider resuming in office next week pending creatinine trend
BMP on Thursday 09/28
OP cardiac follow up arranged
Impression / Plan
-
PCP: Dr. Shaina Hernandez
Manager Poker: Dr Tae Mercado
Impression
Paroxysmal atrial fibrillation, with RVR, improving rate
Acute on chronic HFrEF
Hypertension
Cardiomyopathy with recovered EF by echo 2023
Left bundle branch block
Dyslipidemia
Valvular heart disease
GERD
Osteoporosis
Arthritis
Fatigue
Decreased appetite
GLORIA 10/22/2018: Mildly reduced LV systolic function EF 40-45%, biatrial enlargement, moderate eccentric MR, moderate TR, mild AI
Echo 11/06/2023: Small LV size, EF 59%, mild concentric LVH with discrete upper septal thickening, grade 2 diastolic dysfunction, normal RV size and function, moderate MR, mild AI, moderate to severe TR with PASP 74 mmHg
Echo 09/18/2024: Normal LV size, mildly reduced LV systolic function with EF 40-45%, septal, inferior hypokinesis, mild concentric LVH, normal RV size and function, MAC, mild MS, mod to severe MR, mild AI, moderate TR with PASP 65 to 70 mmHg
Left heart catheterization 09/17/2018: Nonobstructive CAD, mildly reduced LV systolic function, mitral regurgitation +3
Recommendations:
- echo this admission with EF 40-45%. she has history of NICM with recovered EF in past. felt most likely to be secondary to recurrence of afib.
- trop peaked at 0.12. no CP. s/p cath 09/21/24 with nonobstructive CAD and wedge of 18 with CI 1.7 and elevated SVR.
- remains in afib and HR trends improved on review of tele overnight. continue amiodarone 200mg BID for 2 weeks. QTc unchanged compared to prior on my review. consider for CV if remains in afib at office visit next week
- continue toprol
- continue eliquis 2.5mg BID
- Cr up slightly to 1.5, suspected post cath. will decrease po lasix dose to 20mg daily, was on 10mg daily prior to admission. she remains eager for DC today. will check BMP on Thursday 09/28 and follow. hold OP lisinopril, aldactone, and will hold off
on addition of SGLT2 inhibitor at this time. can reevaluate adding meds back as OP
- Will need repeat echo as an outpatient in several months to reevaluate EF as well as degree of MR
- ambulate
- DC planning
- OP cardiac follow up arranged
- d/w nursing via TT, hospitalist via TT
Progress Note - Manager Poker
Subjective
Date of Service: September 23, 2024
Feeling well. Eager for discharge
Objective
Labs:
09/23/24 03:25
09/23/24 03:25
Labs
Hgb 13.1 g/dL (12.0-16.0) 09/23/24 03:25
Hct 38.4 % (37.0-47.0) 09/23/24 03:25
Plt Count 302 10^3/uL (130-400) 09/23/24 03:25
APTT 108.2 Sec (23.4-35.0) H 09/21/24 04:42
Sodium 136 mmol/L (135-145) 09/23/24 03:25
Potassium 3.9 mmol/L (3.5-5.1) 09/23/24 03:25
BUN 35 mg/dl (7-17) H 09/23/24 03:25
Creatinine 1.5 mg/dL (0.6-1.0) H 09/23/24 03:25
Glucose 88 mg/dl (70-99) 09/23/24 03:25
Vital Signs and I&O:
Vital Signs
Temp Pulse Resp BP Pulse Ox
97.6 F 83 20 104/63 98
09/23/24 07:13 09/23/24 06:00 09/23/24 07:13 09/23/24 03:15 09/23/24 07:13
Vital Signs
Temp Pulse Resp BP Pulse Ox
97.6 F 83 20 104/63 98
09/23/24 07:13 09/23/24 06:00 09/23/24 07:13 09/23/24 03:15 09/23/24 07:13
Intake & Output
09/21/24 09/22/24 09/23/24 09/24/24
07:59 07:59 07:59 07:59
Intake Total 800 / 800 240 / 240 480 / 480
Output Total 1325 / 1325 1600 / 1800 800 / 800
Balance -525 / -525 -1360 / -1560 -320 / -320
Physical Exam
Physical Exam
GEN: No distress, awake, alert, oriented x3
HEENT: supple, anicteric, mmm, EOMI
LUNGS: CTA bilaterally, no wheezes/rales
CV: Irreg, S1/S2, 1/6 syst LSB
ABD: soft, BS+, NT/ND
EXT: No cyanosis, clubbing, edema
NEURO: Gross non-focal
SKIN: Warm, pink, dry. No rash.
[2024-09-23] MEDS: TOPROL XL 100 MG PO (09:51)
[2024-09-23] MEDS: LASIX 40 MG PO (09:51)
[2024-09-23] MEDS: PACERONE 200 MG PO (09:51)
[2024-09-23] MEDS: LIPITOR 10 MG PO (09:51)
[2024-09-23] MEDS: OCUVITE SOFTGEL 1 CAP PO (09:51)
[2024-09-23] MEDS: ZESTRIL 5 MG PO (09:51)
[2024-09-23] MEDS: FARXIGA 10 MG PO (11:59)
--- NOTE | 2024-09-23 14:46 | CM ---
priced sarah- pt has a generic policy. her cost for farxiga is 40% cost of med- approx 225/month. pt states she would like generic meds.
--- NOTE | 2024-09-23 15:58 | PTCARENOTE ---
D/c to home w/ family members.
--- NOTE | 2024-09-23 17:02 | W.PN.HOSP.TC ---
Addendum entered and electronically signed by Davie Leon MD 09/23/24 23:26:
Attending Addendum-
I saw and evaluated the patient. I reviewed the resident�s note and agree with findings and plan as documented in the resident�s note. Sub: less WOOD and less fatigue. wants to go home. Denies palps cp. Full 12 point ROS reviewed and negative except
as documented Exam: Vitals reviewed in chart GEN-NAD heart irreg irreg lungs SM @ apex / Lungs CTA B/L abd soft LE trace edema B/L
Plan:
#A-fib with RVR/paroxysmal A-fib
- TTE 09/18-When compared to prior study on 11/06/2023, patient in AF, LVEF 40-45% (prev 59%) with septal/inferior hypokinesis; MR is mod-severe, PASP is 65-70 mmHg (prev 74 mmHg)
- load amiodarone x 2 weeks then resume daily dosing, cont metoprolol
- hep gtt transitioned back to Eliquis-tolerating
- TSH within normal limits
- monitor closely on tele
- eventual CV as OP
# AE HFmrEF (new) / nonischemic CM
-I/O, daily weights
-reduced ef 40-45%
-cont IV Lasix today with transition to PO in am
-Fluid restrict
-GDMT hold spironolactone ORALIA rising CR not a CI to start but will reeval at cards f/u for SGLT2
# Elevated troponin/Type 2 demand ischemia/NIMI
- trops peaked
- cont eliquis plus BB
- LHC and RHC- 09/210-[id number] coronary artery disease.
Significantly elevated right and left-sided filling pressures with reduced cardiac output and severely elevated systemic vascular resistance
- cont diuresis at home
# HTN�essential
- restart lisinopril
- cont metoprolol
#ROSEANN on CKD 3a
- Creat 1.1 @ baseline
- likely from over diuresis
- gold lisin and spirinolactone
- start SGLTi when ok with cards
- Follow BMP
- monitor closely post cath
#Hx chronic LBBB left bundle branch block
#HLD
- cont atorvastatin
Other PMH:
Osteoporosis
macular degeneration
CODE- FULL
DVT prophylaxis- eliquis
Dispo- DC home
Time spent coordinating care, DC planning, review of DC plan of care with resident, transition of care, review of records, med rec/scripts sent electronically, consults, notes, d/w consultants, nursing, family, and CM� 31 mins >50% of this time was
devoted to counseling and coordination of care
Original Note:
Today's Communication/Plan
-
Daily Weight and I/O monitoring
Post catheterization care/monitoring
PT/OT following--- suggested Home PT with walker. Encouraged to ambulate with assistance.
SGLT2i on hold, will discuss with cardiology follow up.
Patient seen and examined, ready for discharge with instructions.
Outpatient followup with cardiology next week
Assessment / Plan
Assessment / Plan
89-year-old female with history of paroxysmal atrial Fibrillation , Congestive Heart Failure, left bundle branch block, dyslipidemia, osteoporosis, left breast cancer presents to the ER for evaluation of chronic weakness with recent intermittent
chest discomfort, and palpitations that have gotten worse.
#Atrial Fibrillation with Rapid Ventricular Response
#Severely Dilated Atria secondary to Mod to Severe Mitral Regurgitation
#Elevated Troponin
S/P Left heart catheterization, coronary angiogram. Right heart catheterization.
Findings:
Non-obstructive coronary artery disease. Significantly elevated right and left-sided filling pressures with reduced cardiac output and severely elevated systemic vascular resistance.
Repeat ECG (09/22/2024):
ATRIAL FIBRILLATION WITH RAPID VENTRICULAR RESPONSE
LEFT AXIS DEVIATION
LEFT BUNDLE BRANCH BLOCK
ABNORMAL ECG
WHEN COMPARED WITH ECG OF 18-Sep-2024 16:17,
QT HAS SHORTENED
Creatinine: 1.5
- Lasix 20mg PO OD
-Toprol XI 100mg OD
-Amiodarone Hcl 200mg PO BID (200mg BID for 2 weeks then back to 200mg daily)
-Apixaban 2.5mg PO BID
-Lisinopril and spironolactone on hold
-Given 1 dose Farxiga 10mg, will discontinue upon discharge due to creatinine levels, but will be discussed as outpatient on cardiology follow up visit
with repeat BMP results.
-Post catheterization care c/o cardiology
-PT/OT following--- suggested Home PT with walker. Encouraged to ambulate with assistance.
-Daily Weight and I/O monitoring
-Outpatient followup with cardiology next week to increase amiodarone load
-BMP on Thursday 09/28
past pertinent findings:
2D ECHO: Atrial Fibrillation
Normal left ventricular chamber size. Mildly reduced left ventricular systolic
function. Left ventricular ejection fraction is 40-45% by visual assessment.�
Septal hypokinesis. The inferior wall appears hypokinetic. Mild concentric left
ventricular hypertrophy. Diastolic function indeterminate. Severely dilated atria.
Mitral annular calcification. Thickened mitral valve leaflets. Mild mitral
stenosis. Peak/mean gradients are 13/5mmHg. Moderate to severe mitral
regurgitation.
Mild aortic regurgitation.
Tricuspid valve opens normally. Moderate tricuspid regurgitation. Estimated
pulmonary artery pressure of 65-70 mmHg. Assuming a right atrial pressure of 8
mmHg.
Normal pericardium without effusion. No pleural effusion present.
Troponin 0.050> repeat 0.96> 0.120
#Hypokalemic
3.9 now, stable
Continue to monitor K levels
Replete as necessary
#Essential Hypertension
111/92
asymptomatic
-lisinopril on hold due to rising creatinine
#Hyperlipidemia
-on Atorvastatin 10mg
#Sleep Disturbance
Continue Melatonin 3mg
Patient was seen, examined and deemed ready for discharge by all care team with appropriate home medications, instructions, and follow up.
DVT Prophylaxis: Eliquis
Anticipated Discharge: Today
Subjective/Interval History
-
Date of Service: September 23, 2024
The patient is eager to go home today. She denies palpitations, chest pain, fever, difficulty voiding, or pain at the catheterization access.
Objective Data
-
Vital Signs:
Vital Signs
Temp Pulse Resp BP Pulse Ox
97.5 F 92 16 111/92 95
09/23/24 14:52 09/23/24 14:38 09/23/24 14:52 09/23/24 14:42 09/23/24 14:52
I&O
09/22/24 09/23/24 09/24/24
06:59 06:59 06:59
Intake Total 720 / 720 300 / 300
Output Total 1600 / 1600 800 / 800 200 / 200
Balance -1600 / -1600 -80 / -80 100 / 100
Review of Systems
-
History Source: Patient
Constitutional: Reports Fatigue (improved) and Other (Denies fever, chills)
EENT: Reports No Symptoms Reported
Respiratory: Reports Other (Denies cough, trouble breathing, wheezing)
Cardiac: Reports Other (Denies chest pain, palpitation, syncope)
Abdomen/GI: Reports Other (Denies abdominal pain, nausea, vomiting)
Genitourinary: Reports Other (Denies dysuria, flank pain)
Musculoskeletal: Reports Other (Denies edema)
Neuro: Reports Other (Denies headache, dizziness, numbness, ataxia)
Hematologic / Lymphatic: Reports Other (Denies bleeding)
Physical Exam
-
General: No Apparent Distress, Comfortable and Conversant
HEENT: Normocephalic and Atraumatic
Respiratory: Clear to Auscultation and Non Labored Respirations
Cardiac: S1/S2 and Irregular Rhythm
Breast: Deferred by me
GI: Soft, Nontender and Nondistended
Rectal: Deferred by Provider
Musculoskeletal: No Cyanosis and No Edema
Skin: Warm
Neuro: AO x 3
Psych: Calm
--- NOTE | 2024-09-23 18:34 | W.DCSUMMARY ---
Addendum entered and electronically signed by Davie Leon MD 09/23/24 23:27:
Read, reviewed, and agree. See same day progress note for additional details.
Andrew Leon MD
Original Note:
Documented by User: Elana Xiong MD, Resident 09/23/24 19:47
Discharge Summary
Discharge Data
Date of Admission: 09/18/24
Date of Discharge: 09/23/24
-
Pending Results: No
Hospital Course
Discharging Physician : Elana Xiong
Disposition : Daughter's home
Primary care physician : Maynor Grace
Principal Discharge diagnosis : Heart Failure Mildly Reduced Ejection Fraction, Atrial Fibrillation, S/P Cardiac Catheterization, Nonischemic Cardiomyopathy
Chronic Discharge diagnosis : Essential Hypertension, Osteoporosis
Hospital Course : The patient is a pleasant 89-year-old female with history of paroxysmal atrial fibrillation, congestive heart failure, left bundle branch block, dyslipidemia, and osteoporosis presents to the Emergency room for evaluation of
generalized weakness. For the past 2 weeks, the patient reported to have mild chest discomfort at rest that is accompanied by palpitations or shortness of breath. Patient's family also reports decreased activity and appetite. In the emergency room,
BNP was noted to be 15,600 and initial troponin of 0.050 trended up to 0.096. Chest X Ray showed cardiomegaly with mild CHF and small bilateral effusions. ECG on admission showed atrial fibrillation with rapid ventricular response, left axis
deviation, and left bundle branch block. The patient was admitted to IVU. Echocardiogram was ordered, Cardizem drip for rate control pending echocardiogram and IV lasix started; amiodarone and Eliquis continued, and the patient was placed on fluid
restriction, with daily I/O and weight monitoring. Creatinine at baseline also noted to be elevated thus, continued to be observed with Basic Metabolic panel trend. Third troponin continued to increase at 0.120 in the morning, thus heparin drip
started and Eliquis put on hold.
Patient was also noted to be hypokalemic, thus repleted with potassium and levels normalized.
Echocardiogram showed mildly reduced left ventricular systolic function with LVEF of 40-45%. Septal and inferior wall hypokinesis, severely dilated atria, and valvular anomalies also observed. At this time, patient was then weaned off cardizem
drip, to be changed to outpatient Tropolol. Ischemic evaluation also planned and CHF education given. On hospital day #3, the patient underwent left and right heart catheterization which showed non-obstructive coronary artery disease and
significantly elevated right and left-sided filling pressures with reduced cardiac output and severely elevated systemic vascular resistance. Appropriate post-cardiac catheterization care done, and no complications were noted. Heparin was
discontinued and switched to Eliquis. Volume and rate control with appropriate monitoring continued. Repeat ECG taken showed atrial fibrillation with rapid ventricular response. Amiodarone 200mg once a day was transiently increased in frequency to
twice a day for 2 weeks to achieve better rate control. At this time, patient was asymptomatic and reported no chest pain or palpitations. At baseline, patient's creatinine is already elevated, but creatinine at 1.5mg/dL prompted delay in restarting
outpatient lisinopril and spironolactone. Further medication review will be discussed with outpatient cardiology follow up, along with amiodarone dose update and appropriateness of a SGLT2 inhibitor in patient's case. On hospital day #5, the patient
was deemed ready for discharge with appropriate medications, instructions, and outpatient follow up.
The following assessments were made and addressed during the patient's stay:
#Atrial Fibrillation with Rapid Ventricular Response
#Severely Dilated Atria secondary to Mod to Severe Mitral Regurgitation
#Elevated Troponin
#S/P Left heart catheterization, coronary angiogram. Right heart catheterization.
Findings:
Non-obstructive coronary artery disease. Significantly elevated right and left-sided filling pressures with reduced cardiac output and severely elevated systemic vascular resistance.
- Lasix 20mg PO OD
-Toprol XI 100mg OD
-Amiodarone Hcl 200mg PO BID (200mg BID for 2 weeks then back to 200mg daily)
-Apixaban 2.5mg PO BID
-Lisinopril and spironolactone on hold
-Given 1 dose Farxiga 10mg, will discontinue upon discharge due to creatinine levels, but will be discussed as outpatient on cardiology follow up visit
with repeat BMP results.
-Post catheterization care
-PT/OT following--- suggested Home PT with walker. Encouraged to ambulate with assistance.
-Daily Weight and I/O monitoring
-Outpatient followup with cardiology next week
-BMP on Thursday 09/28
#Hypokalemia
3.9 now, stable
Continue to monitor K levels
Replete as necessary
#CKD 3a
Creatinine 1.1 at presentation
stable
continue to follow BMP and monitor closely post catheterization
#Essential Hypertension
111
asymptomatic
-lisinopril on hold due to rising creatinine
#Hyperlipidemia
-on Atorvastatin 10mg
#Sleep Disturbance
Continue Melatonin 3mg
Important imaging findings :
ECHOCARDIOGRAM:
CONCLUSIONS
Normal left ventricular chamber size. Mildly reduced left ventricular systolic
function. Left ventricular ejection fraction is 40-45% by visual assessment.
Septal hypokinesis. The inferior wall appears hypokinetic. Mild concentric left
ventricular hypertrophy. Diastolic function indeterminate.
Normal right ventricular size. Normal right ventricular systolic function.
Severely dilated atria.
Mitral annular calcification. Thickened mitral valve leaflets. Mild mitral
stenosis. Peak/mean gradients are 13/5mmHg. Moderate to severe mitral
regurgitation.
Mild aortic regurgitation.
Tricuspid valve opens normally. Moderate tricuspid regurgitation. Estimated
pulmonary artery pressure of 65-70 mmHg. Assuming a right atrial pressure of 8
mmHg.
Normal pericardium without effusion. No pleural effusion present.
When compared to prior study on 11/06/2023, patient in AF, LVEF 40-45% (prev
59%) with septal/inferior hypokinesis; MR is mod-severe, PASP is 65-70 mmHg
(prev 74 mmHg); no other significant change.
Rhythm: Atrial fibrillation
Chest X Ray:
FINDINGS: There are bilateral very small pleural effusions with a small amount of adjacent atelectasis. Diffuse mildly increased interstitial opacity as compared with the previous study likely related to mild interstitial edema. Small amount of
irregular opacity over the left lower lung adjacent to the cardiac shadow probably related to chronic subsegmental atelectatic change or scarring, similar to the previous exam. No new dense airspace consolidation. No pneumothorax. There is moderate
cardiomegaly, slightly exaggerated on the current study by the AP technique. Mediastinal silhouette within normal limits. Mild vascular congestion. No acute osseous abnormality is seen. Mild degenerative changes thoracic spine. Moderate chronic
compression deformity of a lower thoracic vertebral body.
IMPRESSION: Cardiomegaly and mild CHF with very small bilateral effusions.
Procedure findings :
Catheterization Lab:
CORONARY FINDINGS
Dominance: Codominant
Left Main Trunk (LMT): Large caliber vessel that gives rise to the LAD and LCx branches and is free of angiographic disease.
Left Anterior Descending Artery (LAD): Large caliber vessel that gives off 1 major diagonal branch as it courses along the anterior inter-ventricular groove before wrapping around the cardiac apex. Mid LAD at the level of the takeoff of a small to
medium caliber diagonal branch has 30% stenosis. Ostial D1 has 50% stenosis.
Left Circumflex Artery (LCx): Large caliber codominant vessel that gives off 2 major obtuse marginal (OM) branches as it courses along the atrio-ventricular (AV) groove. The LCx and its branches are free of angiographic disease.
Right Coronary Artery (RCA): Large caliber dominant vessel that gives rise to the posterior descending artery (RPDA) and postero-lateral ventricular (RPLV) branches distally. Proximal portion of the RCA appears ectatic but otherwise no focal
obstructive lesions.
CONCLUSIONS
1. Non-obstructive coronary artery disease.
2. Significantly elevated right and left-sided filling pressures with reduced cardiac output and severely elevated systemic vascular resistance.
Discharge Plan
-
Patient Disposition: Home (Routine Discharge)
Discharge Diagnosis/Procedures: cardiac catheterization, heart failure, afib
Condition: Fair
Diet: 2 Gram Sodium and Restrict fluids to 48 oz
Activity: As tolerated
Driving Restrictions: As prior to admission
Bathing Restrictions: None
Blood Work: BMP on Saturday09/28/24
Others Tests: Repeat Echocardiogram in a few months, discuss with p 3 armament/ordnance ima technician for specific timeframe.
Specialty Instructions: Weigh Daily- Call MD for wt gain/loss 3 lbs overnight/5 lbs in 1 week
Instructions: *DCA Heart Failure Instructions
Stand Alone Forms: DC Instructions- Cath/EP Lab
Referrals:
Tae Mercado DO [Active, Cardiology] - 09/28/24 11:20 am
Referral Note: You have a cardiology follow-up appointment at the [place] office. Please call with questions
Maynor Grace DO [Family Provider, Family Practice]
Additional Discharge Medication Instructions: continue amiodarone 200mg twice daily for 2 weeks then decrease to 200mg daily!
Discontinue taking lisinopril and spironolactone without approval from your p 3 armament/ordnance ima technician in your next follow up visit.
Take Lasix 20mg, by mouth, once a day. Discontinue previous Lasix 10mg dose.
Continue Toprol XI 100mg, by mouth, once a day.
Continue Eliquis 2.5 mg, by mouth, twice a day
Continue Atorvastatin 10mg, by mouth, once a day
Discuss plan to take SGLT2 inhibitors with p 3 armament/ordnance ima technician during follow up visit.
Prescriptions:
New
acetaminophen 325 mg Tablet
650 mg PO Q4HPRN PRN (Reason: mild pain/POLANCO/temp> 100.4F) Qty: 30 0RF
polyethylene glycol 3350 17 gram Powder In Packet
17 g PO DAILYPRN PRN (Reason: constipation) Qty: 30 0RF
amiodarone [Pacerone] 200 mg Tablet
200 mg PO BID Qty: 60 0RF
metoprolol succinate 100 mg Tablet Extended Release 24 Hr
100 mg PO DAILY Qty: 60 0RF
furosemide 20 mg Tablet
20 mg PO DAILY Qty: 60 0RF
melatonin 3 mg Tablet
3 mg PO HS Qty: 30 0RF
Continued
PreserVision AREDS-2 1 EACH capsule
1 ea PO BID
atorvastatin 10 mg tablet
10 mg PO DAILY
vitamin E 268 mg (400 unit) Capsule
268 mg PO DAILY
Eliquis 2.5 mg Tablet
2.5 mg PO BID
Discontinued
metoprolol succinate 100 MG tablet extended release 24 hr
100 mg PO DAILY
amiodarone [Pacerone] 200 MG tablet
200 mg PO DAILY
spironolactone 25 mg Tablet
12.5 mg PO DAILY
lisinopril 5 mg Tablet
5 mg PO DAILY
furosemide [Lasix] 20 mg Tablet
10 mg PO DAILY
Discharge Orders:
Discharge Patient (As Directed); Ordered 09/23/24
Ordered By: Elana Xiong
Care Plan Goals
Care Plan Goals:
Problem: Readiness for enhanced knowledge related to diagnosis and treatment plan
Goal: Understand your diagnosis and treatment plan needs, including medications if applicable.
Instructions: Know your diagnosis, underlying causes and treatment plan options, including medications if applicable. Consult with your health care team to learn about your diagnosis and treatment plan, including medications if applicable.
Discharge Date and Time
Discharge Date/Time: 09/23/24 15:24
Print Language: SINGAPOREAN

Documented by User: Davie Leon MD 09/23/24 23:22
Discharge Summary
Discharge Data
Date of Admission: 09/18/24
Date of Discharge: 09/23/24
Discharge Plan
-
Patient Disposition: Home (Routine Discharge)
Discharge Diagnosis/Procedures: cardiac catheterization, heart failure, afib
Condition: Fair
Diet: 2 Gram Sodium and Restrict fluids to 48 oz
Activity: As tolerated
Driving Restrictions: As prior to admission
Bathing Restrictions: None
Blood Work: BMP on Saturday09/28/24
Others Tests: Repeat Echocardiogram in a few months, discuss with p 3 armament/ordnance ima technician for specific timeframe.
Specialty Instructions: Weigh Daily- Call MD for wt gain/loss 3 lbs overnight/5 lbs in 1 week
Instructions: *DCA Heart Failure Instructions
Stand Alone Forms: DC Instructions- Cath/EP Lab
Referrals:
Tae Mercado DO [Active, Cardiology] - 09/28/24 11:20 am
Referral Note: You have a cardiology follow-up appointment at the [place] office. Please call with questions
Maynor Grace DO [Family Provider, Family Practice]
Additional Discharge Medication Instructions: continue amiodarone 200mg twice daily for 2 weeks then decrease to 200mg daily!
Discontinue taking lisinopril and spironolactone without approval from your p 3 armament/ordnance ima technician in your next follow up visit.
Take Lasix 20mg, by mouth, once a day. Discontinue previous Lasix 10mg dose.
Continue Toprol XI 100mg, by mouth, once a day.
Continue Eliquis 2.5 mg, by mouth, twice a day
Continue Atorvastatin 10mg, by mouth, once a day
Discuss plan to take SGLT2 inhibitors with p 3 armament/ordnance ima technician during follow up visit.
Prescriptions:
New
acetaminophen 325 mg Tablet
650 mg PO Q4HPRN PRN (Reason: mild pain/POLANCO/temp> 100.4F) Qty: 30 0RF
polyethylene glycol 3350 17 gram Powder In Packet
17 g PO DAILYPRN PRN (Reason: constipation) Qty: 30 0RF
amiodarone [Pacerone] 200 mg Tablet
200 mg PO BID Qty: 60 0RF
metoprolol succinate 100 mg Tablet Extended Release 24 Hr
100 mg PO DAILY Qty: 60 0RF
furosemide 20 mg Tablet
20 mg PO DAILY Qty: 60 0RF
melatonin 3 mg Tablet
3 mg PO HS Qty: 30 0RF
Continued
PreserVision AREDS-2 1 EACH capsule
1 ea PO BID
atorvastatin 10 mg tablet
10 mg PO DAILY
vitamin E 268 mg (400 unit) Capsule
268 mg PO DAILY
Eliquis 2.5 mg Tablet
2.5 mg PO BID
Discontinued
metoprolol succinate 100 MG tablet extended release 24 hr
100 mg PO DAILY
amiodarone [Pacerone] 200 MG tablet
200 mg PO DAILY
spironolactone 25 mg Tablet
12.5 mg PO DAILY
lisinopril 5 mg Tablet
5 mg PO DAILY
furosemide [Lasix] 20 mg Tablet
10 mg PO DAILY
Discharge Orders:
Discharge Patient (As Directed); Ordered 09/23/24
Ordered By: Elana Xiong
Care Plan Goals
Care Plan Goals:
Problem: Readiness for enhanced knowledge related to diagnosis and treatment plan
Goal: Understand your diagnosis and treatment plan needs, including medications if applicable.
Instructions: Know your diagnosis, underlying causes and treatment plan options, including medications if applicable. Consult with your health care team to learn about your diagnosis and treatment plan, including medications if applicable.
Discharge Date and Time
Discharge Date/Time: 09/23/24 15:24
Print Language: SINGAPOREAN
== END 2024-09-23 15:24 | disposition home or self-care (01) | DRG 286 ==
LOC: IVU 19:05
PROVIDERS: Clinical Nurse Specialist Family Health; Emergency Medicine; Hospitalist; Internal Medicine Interventional Cardiology; Nurse Practitioner; Nurse Practitioner Gerontology; ADMITTING PHYSICIAN Internal Medicine; ATTENDING PHYSICIAN Family Medicine; CONSULT PHYSICIAN Internal Medicine Cardiovascular Disease; EMERGENCY PHYSICIAN Emergency Medicine; FAMILY PHYSICIAN Family Medicine
PROC: 4A023N8 Measurement of Cardiac Sampling and Pressure, Bilateral, Percutaneous Approach (ICD-10-PCS; 2024-09-21)
PROC: B2111ZZ Fluoroscopy of Multiple Coronary Arteries using Low Osmolar Contrast (ICD-10-PCS; 2024-09-21)
DX: I13.0 Hypertensive heart and chronic kidney disease with heart failure and stage 1 through stage 4 chronic kidney disease, or unspecified chronic kidney disease (principal); I50.23 Acute on chronic systolic (congestive) heart failure; J98.11 Atelectasis; N17.9 Acute kidney failure, unspecified; I42.9 Cardiomyopathy, unspecified; I48.0 Paroxysmal atrial fibrillation; I44.7 Left bundle-branch block, unspecified; N18.32 Chronic kidney disease, stage 3b; E78.5 Hyperlipidemia, unspecified; K21.9 Gastro-esophageal reflux disease without esophagitis; M81.0 Age-related osteoporosis without current pathological fracture; M19.90 Unspecified osteoarthritis, unspecified site; R53.83 Other fatigue; I5A Non-ischemic myocardial injury (non-traumatic); I25.10 Atherosclerotic heart disease of native coronary artery without angina pectoris; I42.8 Other cardiomyopathies; E87.6 Hypokalemia; G47.9 Sleep disorder, unspecified; H35.30 Unspecified macular degeneration; I08.1 Rheumatic disorders of both mitral and tricuspid valves; Z60.2 Problems related to living alone; Z66 Do not resuscitate; Z92.3 Personal history of irradiation; Z86.19 Personal history of other infectious and parasitic diseases; Z88.0 Allergy status to penicillin; Z79.01 Long term (current) use of anticoagulants; Z85.3 Personal history of malignant neoplasm of breast; Z82.49 Family history of ischemic heart disease and other diseases of the circulatory system
CPT/HCPCS: 71046; 80048; 80053; 80061; 81003; 81015; 83690; 83735; 83880; 84443; 84484; 85025; 85027; 85730; 87086; 93005; 93306; 93460; 96374; 97162; 97165; 99152; 99153; 99285; C1769; C1894; Q9967

== ENCOUNTER → 2024-09-28 09:24 | Outpatient (REF) | payer OTHER, SELFPAY ==
[2024-09-28 11:32] LABS: Blood Urea Nitrogen 26 mg/dl (7-17); Calcium 10.3 mg/dl (8.4-10.2); Carbon Dioxide 28 mmol/L (22-30); Chloride 103 mmol/L (98-107); Glucose 121 mg/dl (70-99); Potassium 4.7 mmol/L (3.5-5.1); Sodium 140 mmol/L (135-145); eGFR 36.41
== END ==
LOC: REG 09:24
PROVIDERS: ATTENDING PHYSICIAN Nuclear Medicine Nuclear Cardiology; FAMILY PHYSICIAN Family Medicine
DX: I50.22 Chronic systolic (congestive) heart failure (principal)
CPT/HCPCS: 36415; 80048

== ENCOUNTER 2024-10-09 04:21 | Emergency (ER) | payer OTHER, SELFPAY ==
[2024-10-09] VITALS (20 sets, daily range): BP systolic 130–176; BP diastolic 58–103; BMI 22.5
[2024-10-09 05:01] LABS: Hematocrit 40.7 % (37.0-47.0); Hemoglobin 13.0 g/dL (12.0-16.0); Mean Corp Hgb Conc. 31.9 g/dL (33.0-37.0); Mean Corpuscular Volume 89.1 fL (81.0-99.0); Nucleated Red Blood Cells % 0 %; Platelet Count 293 10^3/uL (130-400); Red Cell Dist. Width 14.1 % (11.5-14.5)
--- NOTE | 2024-10-09 05:25 | ED.GENMED ---
History of Present Illness
General
Chief Complaint: Chest Pain
Source: patient and records
Exam Limitations: none
Time Seen by Provider: 10/09/24 05:10
Nursing documentation reviewed up to this point in time: agreed with except (Patient is quite adamant to me that she has no chest pain or pressure)
History of Present Illness
History of Present Illness:
89-year-old female with a past medical history of hypertension, hyperlipidemia, CHF, paroxysmal atrial fibrillation on Eliquis who presents to the ER for evaluation of fatigue. Patient was notably admitted to this hospital 09/18 until 09/23 for
congestive heart failure and atrial fibrillation with rapid ventricular response. During that hospitalization she was seen by cardiology and her dose of amiodarone was increased. She had a cardiac catheterization during that admission that showed
nonobstructive disease. She was still in atrial fibrillation on discharge from the hospital. She says since discharge she has had continued generalized fatigue�'I just feel terrible.' She says that this is associated with occasional palpitations.
She denies any chest pain. She says she will occasionally feel short of breath. She has not noticed any swelling in her legs. She says that she spoke with her home day care provider (Dr. Mercado) and is scheduled to have a cardioversion on Saturday as an
outpatient however she decided to come to the ER today hoping to expedite her cardioversion. She is on appropriate dose of Eliquis reports compliance without any missed doses.
Past History
Past History
ED Past Medical History: Arrthythmia, Cancer, CHF and HTN
ED Past Surgical History: Other (Lumpectomy)
Social History
Tobacco: Non-smoker
Alcohol: Daily
Drug: None
Personal: Other (With daughter)
Living: alone
Employment: Retired
Family History
Family History: Other (Noncontributory)
Review of Systems
Review of Systems
All Other Systems: ROS reviewed and negative except as documented in HPI and ROS
Constitutional: Reports fatigue; Denies fever
Respiratory: Reports trouble breathing (Occasional); Denies cough
Cardiac: Reports palpitations; Denies chest pain
ABD/GI: Denies abdominal pain, nausea or vomiting
Musculoskeletal: Denies edema
Neurological: Denies dizzy or headache
Phy Exam
Physical Exam
Physical Exam:
General: Awake, alert, oriented x3; no acute distress
Head: Normocephalic, atraumatic
Eyes: Conjunctiva normal, EOMI
Throat: Airway intact, handling secretions
Neck: Trachea midline, no JVD
Lungs: No tachypnea or hypoxia, very faint faint crackles at the lung base
Heart: Regular rate and irregularly irregular rhythm, systolic murmur
Abd: Soft, non distended, nontender
Neuro: Grossly intact
Extremities: No edema in extremities, equal pulses in all extremities
Scores
Heart Failure Risk
Heart Failure Risk Score: Not Applicable
Heart Score for Chest Pain Patients
STEMI patient?: Not applicable
Withdrawal Assessment of Alcohol
Withdrawal Assessment Completed?: Not applicable
Course
Orders/Labs/Results
Orders:
Orders
10/09/24 04:40
Electrocardiogram (*1) Urgent
Reason for Study: Chest Pain
10/09/24 04:41
EKG- Treatment ONCE
10/09/24 04:51
Complete Blood Count/With Diff Urgent
Comprehensive Metabolic Panel Urgent
10/09/24 05:38
Propofol [Diprivan] 20 ml .ROUTE .STK-MED
10/09/24 06:19
Electrocardiogram (*1) Urgent
Reason for Study: Other
Other Reason for Exam: Cardioversion
EKG- Treatment ONCE
Abnormal Lab Results
10/09/24
04:51
WBC 11.2 H 10^3/uL
(4.8-10.8)
MCHC 31.9 L g/dL
(33.0-37.0)
MPV 11.1 H fL
(7.4-10.4)
Abs Immat Gran (auto) 0.1 H 10^3/uL
(0-0.05)
Absolute Neuts (auto) 8.9 H 10^3/uL
(1.4-6.5)
Immature Gran % 0.6 H %
(0-0.5)
Neutrophils % 79.6 H %
(42.2-75.2)
Lymphocytes % 12.9 L %
(20.5-51.1)
BUN 19 H mg/dl
(7-17)
Creatinine 1.2 H mg/dL
(0.6-1.0)
Glucose 129 H mg/dl
(70-99)
Total Bilirubin 1.6 H mg/dl
(0.2-1.3)
10/09/24 04:51
10/09/24 04:51
Vital Signs
Initial and Last Documented VS:
Initial Vital Signs
BP
143/93
10/09/24 04:22
Last Documented Vital Signs
Temp Pulse Resp BP Pulse Ox
36.6 C 61 19 130/76 96
10/09/24 06:21 10/09/24 06:21 10/09/24 06:21 10/09/24 06:21 10/09/24 06:21
Procedures
Cardioversion
Indication:: Afib
Performed by:: Jc Hernandez MD
Synchronized?: Yes
Energy Used: 200 joules
Number of attempts: 1
Successful?: Yes
ASA Risk Score: Class III
Any reaction or bad outcome to prior sedation/anesthesia?: No history of a reaction
Sedation level to be attained: moderate
Chart and allergies reviewed: Yes
Patient reassessed prior to sedation: Yes
Time out completed at (validating right patient & procedure): 06:11
History of difficult intubation: No
Airway free of obstruction: Yes
Patient has a gag reflex: Yes
Patient is able to open mouth: Yes
Patient has no dentures: Yes
Patient has no loose teeth: Yes
Medication administered by Provider during Moderate Sedation: IV Propofol (mg)
Total dose administered: 30
Time drug administered: 06:11
Start Time: 06:11
Stop Time: 06:21
MDM/Problems Addressed
Differential Diagnosis Includes:
Symptomatic A-fib, polypharmacy, anemia
MDM/Problems Addressed:
89-year-old female presents to the ER for fatigue since discharge from the hospital�she believes that she is still having symptoms from atrial fibrillation, scheduled for cardioversion Saturday but was hoping to expedite this. No chest pain.
Occasional shortness of breath. No other acute issues. Vital signs today are within acceptable range. EKG shows atrial fibrillation with left bundle branch block which is known; she is rate controlled today. She had labs done in triage her
chemistry is still pending but her CBC shows no clinically significant abnormalities. I had a long discussion with the patient�her primary reason for coming to the hospitalist that she open she could be cardioverted because she believes it will
help her with her fatigue. I do agree that likely her symptoms are from persistent A-fib. She is a reasonable candidate for elective cardioversion�spoke to patient about risks and benefits and she wishes to proceed.
Chemistry reviewed and shows stable CKD no other clinically significant abnormalities. Patient was successfully cardioverted as documented procedure now. She says she is feeling much better after cardioversion. Will monitor after sedation and
plan to discharge with cardiology follow-up.
Chronic conditions affecting care:
Atrial fibrillation
*Pulse Oximetry
SaO2: 94
Oxygen Mode of Delivery: Room air
Patient hypoxic: no (94%)
*EKG
Interpreted by ED Provider?: Yes
Comparison EKG: no changes
Heart Rate: 94
Rate: normal
Rhythm: a-fib
Willis: left axis deviation
Interval: normal interval
QRS Pattern: left bundle branch block
Ischemia: no ischemia
*Critical Care Note
Total Time (30-74mins, 75-104mins- exclusive of procedures): Not Applicable
Data Reviewed
Review of Other/Old Records Reveals: Labs, Records and Discharge Summary
Source: patient and records
ED Attending Note
-
Portions of this chart may have been created with voice recognition software.� Occasional wrong word or��sound alike� substitutions may have occurred due to the inherent limitations of voice recognition software.
Discharge Plan
Departure
Patient with high blood pressure during this ER visit?: Yes
Discharge Problem:
Atrial fibrillation status post cardioversion
Instructions: Atrial fibrillation (DC), MODERATE SEDATION ADULT
Prescriptions:
No Action
PreserVision AREDS-2 1 EACH capsule
1 ea PO BID
atorvastatin 10 mg tablet
10 mg PO DAILY
vitamin E 268 mg (400 unit) Capsule
268 mg PO DAILY
Eliquis 2.5 mg Tablet
2.5 mg PO BID
acetaminophen 325 mg Tablet
650 mg PO Q4HPRN PRN (Reason: mild pain/POLANCO/temp> 100.4F) Qty: 30 0RF
polyethylene glycol 3350 17 gram Powder In Packet
17 g PO DAILYPRN PRN (Reason: constipation) Qty: 30 0RF
amiodarone [Pacerone] 200 mg Tablet
200 mg PO BID Qty: 60 0RF
metoprolol succinate 100 mg Tablet Extended Release 24 Hr
100 mg PO DAILY Qty: 60 0RF
furosemide 20 mg Tablet
20 mg PO DAILY Qty: 60 0RF
melatonin 3 mg Tablet
3 mg PO HS Qty: 30 0RF
Referrals:
Tae Mercado DO [Active, Cardiology] - Call in 1-3 days for appt
Maynor Grace DO [Family Provider, Family Practice]
Activity Restrictions/Additional Instructions:
Thank you for visiting the Emergency Department at [facility].
1. Please schedule a follow up appointment as directed. Call first thing tomorrow morning to make an appointment.
2. If indicated, please take your medications as instructed and indicated on discharge paperwork.
3. If any of your symptoms do not improve, or persist, or become more severe within 6-12 hours, please return to the emergency department for further care.
4. Please return to the emergency department if you develop a headache, neck pain/stiffness, fever greater than 100.4F, chest pain, shortness of breath, persistent nausea, vomiting, slurred speech, difficulty walking, numbness/tingling, weakness,
signs of infection or any other symptoms that are worrisome to you.
Please call [phone] if you have any questions.
Interventions
Interventions:
*Risk Screen - Suicide Last Done: 10/09/24 04:27
*General Assessment Last Done: 10/09/24 04:27
*Neglect/Abuse Screening Last Done: 10/09/24 04:27
*ED- Fall Risk Assessment Last Done: 10/09/24 04:36
*ED COVID-19 Vaccine History Last Done: 10/09/24 04:36
ED- Cardiac Assessment Last Done: 10/09/24 04:36
Discharge Date and Time
Print Language: GERMAN
[2024-10-09 05:30] LABS: ALT (SGPT) 33 U/L (0-35); AST (SGOT) 33 U/L (14-36); Albumin 4.2 g/dl (3.5-5.0); Alkaline Phosphatase 99 U/L (38-126); Blood Urea Nitrogen 19 mg/dl (7-17); Calcium 10.0 mg/dl (8.4-10.2); Carbon Dioxide 25 mmol/L (22-30); Chloride 105 mmol/L (98-107); Estimated Creatinine Clearance 27 ml/min; Glucose 129 mg/dl (70-99); Potassium 3.7 mmol/L (3.5-5.1); Sodium 141 mmol/L (135-145); Total Protein 7.2 g/dl (6.3-8.2); eGFR 43.81
== END 2024-10-09 07:18 | disposition home or self-care (01) ==
LOC: EMR 04:21
PROVIDERS: EMERGENCY PHYSICIAN Emergency Medicine; FAMILY PHYSICIAN Family Medicine
DX: I48.91 Unspecified atrial fibrillation (principal); I13.0 Hypertensive heart and chronic kidney disease with heart failure and stage 1 through stage 4 chronic kidney disease, or unspecified chronic kidney disease; I50.9 Heart failure, unspecified; N18.9 Chronic kidney disease, unspecified; E78.5 Hyperlipidemia, unspecified; Z79.01 Long term (current) use of anticoagulants; I44.7 Left bundle-branch block, unspecified
CPT/HCPCS: 92960; 99152; 99285; 80053; 85025; 93005

== ENCOUNTER 2024-11-03 19:10 | Inpatient (IN) | payer OTHER, SELFPAY ==
[2024-11-03] VITALS (8 sets, daily range): BP systolic 114–143; BP diastolic 76–104; BMI 21.1; BMI 20.6
[2024-11-03 14:47] LABS: ALT (SGPT) 26 U/L (0-35); AST (SGOT) 33 U/L (14-36); Albumin 4.1 g/dl (3.5-5.0); Alkaline Phosphatase 103 U/L (38-126); Blood Urea Nitrogen 43 mg/dl (7-17); Calcium 9.6 mg/dl (8.4-10.2); Carbon Dioxide 21 mmol/L (22-30); Chloride 105 mmol/L (98-107); Glucose 131 mg/dl (70-99); Potassium 3.9 mmol/L (3.5-5.1); Sodium 138 mmol/L (135-145); Total Protein 7.0 g/dl (6.3-8.2); eGFR 43.81
[2024-11-03 14:50] LABS: Hematocrit 36.7 % (37.0-47.0); Hemoglobin 11.9 g/dL (12.0-16.0); Mean Corp Hgb Conc. 32.4 g/dL (33.0-37.0); Mean Corpuscular Volume 87.2 fL (81.0-99.0); Nucleated Red Blood Cells % 0.2 %; Platelet Count 315 10^3/uL (130-400); Red Cell Dist. Width 15.0 % (11.5-14.5)
[2024-11-03 15:00] LABS: INR 1.74; PT 20.6 Sec (11.4-14.6)
[2024-11-03 15:01] LABS: APTT 30.4 Sec (23.4-35.0)
[2024-11-03 15:05] LABS: Troponin I 0.033 ng/ml
--- NOTE | 2024-11-03 16:37 | ED.GENMED ---
History of Present Illness
<Denice Bean, INFORMATION ASSURANCE - Last Filed: 11/03/24 23:09>
General
Chief Complaint: Heart Rate Problem
Source: patient and family
Exam Limitations: none
Time Seen by Provider: 11/03/24 15:45
Nursing documentation reviewed up to this point in time: agreed with
History of Present Illness
History of Present Illness:
89-year-old female with history of atrial fibrillation on Eliquis, CHF, HTN, HL D presents for gradually worsening weakness, decreased appetite, shortness of breath over the past week. She states she thinks she is in atrial fibrillation that she
says she goes in and out of. She was here a little over a week ago and had a cardioversion. Family at bedside states that when she gets cardioverted they can definitely tell the difference that she is feeling better and has more energy. She denies
chest pain.
The patient has been hospitalized twice in recent times for atrial fibrillation management. During her first admission, her amiodarone dosage was increased to 200 mg twice daily, and during her second recent visit, she underwent a cardioversion.
Past History
<Denice Bean, INFORMATION ASSURANCE - Last Filed: 11/03/24 23:09>
Past History
ED Past Medical History: Arrthythmia (Atrial food 1 Eliquis), Cancer, CHF, HTN and Hypercholesterolemia
ED Past Surgical History: Other (Lumpectomy)
Social History
Tobacco: Non-smoker
Alcohol: Occasional
Drug: None
Personal: Other (With daughter)
Living: alone
Employment: Retired
Family History
Family History: Other (Noncontributory)
Review of Systems
<eDnice Bean, INFORMATION ASSURANCE - Last Filed: 11/03/24 23:09>
Review of Systems
Allergies reviewed?: Yes
All Other Systems: ROS reviewed and negative except as documented in HPI and ROS
Phy Exam
<Denice Bean, INFORMATION ASSURANCE - Last Filed: 11/03/24 23:09>
Physical Exam
Physical Exam:
GENERAL: No acute distress. A&Ox3.
CONSTITUTIONAL: Afebrile.
EYES: clear, conjunctivae normal
ENMT: Dry mucus membranes, Pharynx nl
RESPIRATORY: Regular respirations, nonlabored, lungs clear.
CARDIOVASCULAR: Irregular rhythm, rate between 84 and 104 on the monitor, A-fib, no murmurs, no rubs.
GI: Soft, nontender, normal BS
MUSCULOSKELETAL: Moves with ease. Well perfused.
SKIN: Warm, dry, pale
PSYCH: Normal mood and affect. Well kept, interactive and appropriate
NEUROLOGIC: Awake, alert and oriented. No focal neurological deficits
Course
<Denice Bean, INFORMATION ASSURANCE - Last Filed: 11/03/24 23:09>
Orders/Labs/Results
Orders:
Orders
11/03/24 Breakfast
Cholesterol Lowering
At Your Request: Limited Participation
Does patient need a safe tray?: No
Fluid Restriction: 1000 mL/day (33 oz)
Cholesterol Lowering: Sodium, 2 Gram
11/03/24 14:17
Electrocardiogram (*1) Urgent
Reason for Study: Atrial Fibrillation
EKG- Treatment ONCE
11/03/24 14:26
CMP [Comprehensive Metabolic Panel] Urgent
Complete Blood Count/With Diff Urgent
NT-proBNP Urgent
PT/INR [Prothrombin Time] Urgent
PTT Urgent
Troponin I Urgent
11/03/24 16:52
Furosemide [Lasix] 40 mg IV NOW STA
11/03/24 17:20
Troponin I Urgent
11/03/24 17:57
CXR2 [CR Chest - 2 Views ] Urgent
Comment:
Reason For Exam: CHF
11/03/24 18:41
Admit/Transfer Patient As Directed
Co-Sign Provider:
Level of Care: Inpatient admission
Assign to:: Telemetry
Physician / Group: Amber Hendricks - fosterists
Diagnosis: CHF exacerbation
Reason for Telemetry: Acute Heart Failure
Date to Stop Telemetry: 11/06/24
Time to Stop Telemetry: 11:00
Reason for Hospitalization: CHF exacerbation
Expected length of stay greater than two midnights?: Yes
ELOS- Estimated Length of Stay in days: 3
I certify the patient meets the requirements for IP care: Yes
11/03/24 18:42
PRN Pain Medication Management As Directed
May give lesser potent ordered pain med per pt: Yes
preference::
Protocol:: Medication orders for pain may be administered in a
manner that supports deferring to patient preference
when the pt is:
- Requesting an ordered lesser potent pain medication.
Least to most potent pain medications are defined
as: acetaminophen < NSAID < tramadol < opioids
(morphine, oxycodone, hydromorphone).
- Requesting a lesser dose of the same medication IF
ORDERED.
- Requesting a less intrusive route of administration
if both routes are prescribed by the provider (PO <
IV).
11/03/24 18:43
Code Status As Directed
Resuscitation Status: Full Code
11/03/24 18:52
Metoprolol [Lopressor] 5 mg IV Q6HPRN PRN
11/03/24 20:21
Apixaban [Eliquis] 2.5 mg PO BID
11/03/24 20:21
CARDIOLOGY CONSULT Routine
Consulting Provider: Ga Chicas
Was physician already notified: Yes
HF DIETARY CONSULT Routine
HF EDUCATOR CONSULT Routine
Comment:
Activity As Directed
Activity Level: As Tolerated
Intake/ Output As Directed
Frequency: Per unit guidelines
Patient Education As Directed
Type: CHF folder
Comment: give on admission. Document in Interdisciplinary Education record
Sleep Apnea Assessment by RN As Directed
Comment:
Physician Instructions:
Vital Signs As Directed
Frequency: Other
Additional Instructions:: Q12 or per unit guidelines if more frequent.
Weight As Directed
Frequency: Daily
Type of Scale: Standing Scale
Comment: Daily morning weight. If unable to stand, use balanced bed scale.
Weight As Directed
Frequency: Once
Type of Scale: Standing Scale
Comment: Upon Admission. If unable to stand, use balanced bed scale.
Pulse Ox/cont/shift [RESP] Routine
Quantity: 1
Special Instructions: Daily pulse oximetry at rest. If greater than 92% at rest also obtain pulse oximetry
while ambulating as tolerated.
Ot Eval And Treat Routine
Pt Eval And Treat Routine
Activity Level: As Tolerated
11/03/24 20:45
Vit C/Vit E/Lutein/Min/[place]-3 [Ocuvite Softgel] 1 cap PO BID
11/04/24 06:00
Basic Metabolic Panel IN AM
Cardiovascular Evaluation IN AM
Complete Blood Count/No Diff IN AM
Magnesium IN AM
TSH Reflex To Free T4 IN AM
11/04/24 08:00
Amiodarone [Pacerone] 200 mg PO DAILY
Atorvastatin [Lipitor] 10 mg PO DAILY
Furosemide [Lasix] 40 mg IV DAILY
Metoprolol Xl [Toprol Xl] 100 mg PO DAILY
potassium chloride 8 meq PO DAILY
11/05/24 06:00
Basic Metabolic Panel IN AM
Complete Blood Count/No Diff IN AM
11/06/24 06:00
Basic Metabolic Panel IN AM
Complete Blood Count/No Diff IN AM
11/06/24 11:00
DC Protocol for Telemetry ONCE
Abnormal Lab Results
11/03/24
14:26
Hgb 11.9 L g/dL
(12.0-16.0)
Hct 36.7 L %
(37.0-47.0)
MCHC 32.4 L g/dL
(33.0-37.0)
RDW 15.0 H %
(11.5-14.5)
MPV 12.1 H fL
(7.4-10.4)
Absolute Neuts (auto) 6.9 H 10^3/uL
(1.4-6.5)
Neutrophils % 78.0 H %
(42.2-75.2)
Lymphocytes % 13.5 L %
(20.5-51.1)
PT 20.6 H Sec
(11.4-14.6)
Carbon Dioxide 21 L mmol/L
(22-30)
BUN 43 H mg/dl
(7-17)
Creatinine 1.2 H mg/dL
(0.6-1.0)
Glucose 131 H mg/dl
(70-99)
Total Bilirubin 2.7 H mg/dl
(0.2-1.3)
11/03/24 14:26
11/03/24 14:26
Vital Signs
Initial and Last Documented VS:
Initial Vital Signs
Pulse Resp BP Pulse Ox
92 18 129/79 93
11/03/24 14:10 11/03/24 14:10 11/03/24 14:10 11/03/24 14:10
Last Documented Vital Signs
Temp Pulse Resp BP Pulse Ox
97.5 F 98 24 143/82 97
11/03/24 20:30 11/03/24 20:30 11/03/24 20:30 11/03/24 20:30 11/03/24 20:30
Certified Athletic Trainer consulted with Physician
Certified Athletic Trainer consulted with physician?: Yes
Name of Physician Consulted: Malena
<Meaghan Guy MD - Last Filed: 11/03/24 17:18>
Orders/Labs/Results
Orders:
Orders
11/03/24 Breakfast
Cholesterol Lowering
At Your Request: Limited Participation
Does patient need a safe tray?: No
Fluid Restriction: 1000 mL/day (33 oz)
Cholesterol Lowering: Sodium, 2 Gram
11/03/24 14:17
Electrocardiogram (*1) Urgent
Reason for Study: Atrial Fibrillation
EKG- Treatment ONCE
11/03/24 14:26
CMP [Comprehensive Metabolic Panel] Urgent
Complete Blood Count/With Diff Urgent
NT-proBNP Urgent
PT/INR [Prothrombin Time] Urgent
PTT Urgent
Troponin I Urgent
11/03/24 16:52
Furosemide [Lasix] 40 mg IV NOW STA
11/03/24 17:20
Troponin I Urgent
11/03/24 17:57
CXR2 [CR Chest - 2 Views ] Urgent
Comment:
Reason For Exam: CHF
11/03/24 18:41
Admit/Transfer Patient As Directed
Co-Sign Provider:
Level of Care: Inpatient admission
Assign to:: Telemetry
Physician / Group: Amber Hendricks - fosterists
Diagnosis: CHF exacerbation
Reason for Telemetry: Acute Heart Failure
Date to Stop Telemetry: 11/06/24
Time to Stop Telemetry: 11:00
Reason for Hospitalization: CHF exacerbation
Expected length of stay greater than two midnights?: Yes
ELOS- Estimated Length of Stay in days: 3
I certify the patient meets the requirements for IP care: Yes
11/03/24 18:42
PRN Pain Medication Management As Directed
May give lesser potent ordered pain med per pt: Yes
preference::
Protocol:: Medication orders for pain may be administered in a
manner that supports deferring to patient preference
when the pt is:
- Requesting an ordered lesser potent pain medication.
Least to most potent pain medications are defined
as: acetaminophen < NSAID < tramadol < opioids
(morphine, oxycodone, hydromorphone).
- Requesting a lesser dose of the same medication IF
ORDERED.
- Requesting a less intrusive route of administration
if both routes are prescribed by the provider (PO <
IV).
11/03/24 18:43
Code Status As Directed
Resuscitation Status: Full Code
11/03/24 18:52
Metoprolol [Lopressor] 5 mg IV Q6HPRN PRN
11/03/24 20:21
Apixaban [Eliquis] 2.5 mg PO BID
11/03/24 20:21
CARDIOLOGY CONSULT Routine
Consulting Provider: Ga Chicas
Was physician already notified: Yes
HF DIETARY CONSULT Routine
HF EDUCATOR CONSULT Routine
Comment:
Activity As Directed
Activity Level: As Tolerated
Intake/ Output As Directed
Frequency: Per unit guidelines
Patient Education As Directed
Type: CHF folder
Comment: give on admission. Document in Interdisciplinary Education record
Sleep Apnea Assessment by RN As Directed
Comment:
Physician Instructions:
Vital Signs As Directed
Frequency: Other
Additional Instructions:: Q12 or per unit guidelines if more frequent.
Weight As Directed
Frequency: Daily
Type of Scale: Standing Scale
Comment: Daily morning weight. If unable to stand, use balanced bed scale.
Weight As Directed
Frequency: Once
Type of Scale: Standing Scale
Comment: Upon Admission. If unable to stand, use balanced bed scale.
Pulse Ox/cont/shift [RESP] Routine
Quantity: 1
Special Instructions: Daily pulse oximetry at rest. If greater than 92% at rest also obtain pulse oximetry
while ambulating as tolerated.
Ot Eval And Treat Routine
Pt Eval And Treat Routine
Activity Level: As Tolerated
11/03/24 20:45
Vit C/Vit E/Lutein/Min/[place]-3 [Ocuvite Softgel] 1 cap PO BID
11/04/24 06:00
Basic Metabolic Panel IN AM
Cardiovascular Evaluation IN AM
Complete Blood Count/No Diff IN AM
Magnesium IN AM
TSH Reflex To Free T4 IN AM
11/04/24 08:00
Amiodarone [Pacerone] 200 mg PO DAILY
Atorvastatin [Lipitor] 10 mg PO DAILY
Furosemide [Lasix] 40 mg IV DAILY
Metoprolol Xl [Toprol Xl] 100 mg PO DAILY
potassium chloride 8 meq PO DAILY
11/05/24 06:00
Basic Metabolic Panel IN AM
Complete Blood Count/No Diff IN AM
11/06/24 06:00
Basic Metabolic Panel IN AM
Complete Blood Count/No Diff IN AM
11/06/24 11:00
DC Protocol for Telemetry ONCE
Abnormal Lab Results
11/03/24
14:26
Hgb 11.9 L g/dL
(12.0-16.0)
Hct 36.7 L %
(37.0-47.0)
MCHC 32.4 L g/dL
(33.0-37.0)
RDW 15.0 H %
(11.5-14.5)
MPV 12.1 H fL
(7.4-10.4)
Absolute Neuts (auto) 6.9 H 10^3/uL
(1.4-6.5)
Neutrophils % 78.0 H %
(42.2-75.2)
Lymphocytes % 13.5 L %
(20.5-51.1)
PT 20.6 H Sec
(11.4-14.6)
Carbon Dioxide 21 L mmol/L
(22-30)
BUN 43 H mg/dl
(7-17)
Creatinine 1.2 H mg/dL
(0.6-1.0)
Glucose 131 H mg/dl
(70-99)
Total Bilirubin 2.7 H mg/dl
(0.2-1.3)
11/03/24 14:26
11/03/24 14:26
Vital Signs
Initial and Last Documented VS:
Initial Vital Signs
Pulse Resp BP Pulse Ox
92 18 129/79 93
11/03/24 14:10 11/03/24 14:10 11/03/24 14:10 11/03/24 14:10
Last Documented Vital Signs
Temp Pulse Resp BP Pulse Ox
97.5 F 98 24 143/82 97
11/03/24 20:30 11/03/24 20:30 11/03/24 20:30 11/03/24 20:30 11/03/24 20:30
<Denice Bean, INFORMATION ASSURANCE - Last Filed: 11/03/24 23:09>
MDM/Problems Addressed
MDM/Problems Addressed:
89-year-old female with history of atrial fibrillation on Eliquis, CHF, HTN, HL D presents for gradually worsening weakness, decreased appetite, shortness of breath over the past week. She states she thinks she is in atrial fibrillation that she
says she goes in and out of. She was here a little over a week ago and had a cardioversion. Family at bedside states that when she gets cardioverted they can definitely tell the difference that she is feeling better and has more energy. She denies
chest pain.
The patient has been hospitalized twice in recent times for atrial fibrillation management. During her first admission, her amiodarone dosage was increased to 200 mg twice daily, and during her second recent visit, she underwent a cardioversion.
4:45 PM:
CBC with no clinically significant abnormality
CMP consistent with her chronic CKD plus little dehydration with a BUN of 43.
Coags: PT is 20.6
BNP 26,800
Troponin 0.033
Patient is in atrial fibrillation with a rate between the 80s to 108, rate controlled patient and family say that they are in favor of cardioversion as they note improvement in her symptoms when it's been done in past, most recently on 10/09/[address] with Dr. Guy who examined pt and spoke with family
1930:
Chest x-ray consistent with CHF
Plan: Admit to hospitalist: CHF
<Denice Bean INFORMATION ASSURANCE - Last Filed: 11/03/24 23:09>
*Pulse Oximetry
SaO2: 94
Oxygen Mode of Delivery: Room air
Patient hypoxic: no
*Critical Care Note
Total Time (30-74mins, 75-104mins- exclusive of procedures): Not Applicable
ED Attending Note
<Denice Bean NP - Last Filed: 11/03/24 23:09>
-
Portions of this chart may have been created with voice recognition software.� Occasional wrong word or��sound alike� substitutions may have occurred due to the inherent limitations of voice recognition software.
<Meaghan Guy MD - Last Filed: 11/03/24 17:18>
ED Attending Note
Patient seen and examined by attending physician: Yes
I performed the substantive portion of visit, reviewed & personally made and approve the management plan that is documented in note by myself or ALBERT.: Yes
ED Attending Note:
89-year-old female presents emergency department with increase in her baseline fatigue associated with increase in dyspnea as noted by her family and anorexia. She has reportedly lost weight. They have been giving her protein shakes each day
because she is not eating or drinking as they feel that she should be. Patient has chronic anterior chest discomfort, not pleuritic, nonradiating. She denies fever, chills, abdominal pain, new leg swelling. On exam, patient is awake alert
pleasant speaks in full sentences. Heart irregularly irregular but rate controlled. Bibasilar rales noted. Trace to 1+ bilateral lower extremity edema, abdomen soft and nontender. Suspect acute on chronic heart failure in the context of rate
controlled A-fib. Patient will be admitted, to hospitalist with cardiology consult.
Discharge Plan
Departure
Patient Disposition: Admit
Date of Disposition: 11/03/24
Time of Disposition: 18:00
Admit to: Telemetry
Presentation/result/management discussed w/ accepting MD/DO: Hospitalist
Condition: Fair
Discharge Problem:
CHF (congestive heart failure), A-fib
Interventions
Interventions:
*Risk Screen - Suicide Last Done: 11/03/24 16:04
*General Assessment Last Done: 11/03/24 16:02
*Neglect/Abuse Screening Last Done: 11/03/24 16:04
*ED- Fall Risk Assessment Last Done: 11/03/24 16:02
*ED COVID-19 Vaccine History Last Done: 11/03/24 16:02
*Nursing Disposition Last Done: 11/03/24 20:29
ED- Cardiac Assessment Last Done: 11/03/24 16:05
ED- Pulmonary Assessment Last Done: 11/03/24 16:05
Discharge Date and Time
Discharge Date/Time: 11/03/24 20:30
[2024-11-03] MEDS: LASIX 40 MG IV (16:58)
[2024-11-03 17:59] LABS: Troponin I 0.031 ng/ml
--- NOTE | 2024-11-03 18:02 | HPS.HSE ---
Addendum entered and electronically signed by Amber Hendricks MD 11/03/24 19:06:
see update note for addendum
Original Note:
Family Physician
-
Family Physician: Maynor Grace DO
Chief Complaint
-
sob
weakness
History of Present Illness
89-year-old female with history of atrial fibrillation on Eliquis, CHF, HTN, HL D presents for gradually worsening weakness, decreased appetite, shortness of breath over the past week. today she was sob even at rest. she sleeps on her side due to
sob. she is extremely exhausted and weak and not able to do anything due to the weakness. she complained of chest heaviness. denied chest pain. denied fever, chills, cough, congestion. denied abdominal pain,n,v. denied dysuria or hematuria. denied
LE edema or weight gain.
Upon arrival she was noted to have elevated BNP. Patient received a dose of Lasix in ER. Admitting for further management
Medical History
Past Medical History
Past Medical History: Reports Other
Additional Past Medical History:
Left breast cancer, hypertension, depression, GERD, A-fib, CHF, osteoporosis, arthritis, macular degeneration, left bundle branch block, H. pylori, CKD
Past Surgical History: Reports Other
Additional Past Surgical History:
Left foot surgery, appendectomy, left breast lumpectomy, cardioversion, nasal polyps removed
Social History
Tobacco: Non-smoker
Alcohol: Occasional
Drug: None
Living: Alone
Family History
Family History: Not pertinent
Allergies / Home Medications
Allergies reflects when Allergies were last updated in [facility].
Home Medications with original date entered in [facility]
Allergy/Medication List:
Allergies
Allergy/AdvReac Type Severity Reaction Status Date / Time
Penicillins Allergy LEG Verified 10/09/24 04:26
SWELLING
60 YEARS
AGO
Home Medications
vit C 250 mg-vit E 90 mg-zinc 40 mg-copper 1 [id number] capsule (PreserVision AREDS-2) 1 cap PO BID Supplement 09/30/17
atorvastatin 10 mg tablet 10 mg PO DAILY High Cholesterol 11/02/22
apixaban 2.5 mg tablet (Eliquis) 2.5 mg PO BID Blood Clot Prevention/Tx 12/10/22
furosemide 20 mg tablet 20 mg PO DAILY #60 tabs 09/23/24
metoprolol succinate 100 mg tablet,extended release 24 hr 100 mg PO DAILY Arrhythmia #60 tabs 09/23/24
amiodarone 200 mg tablet (Pacerone) 200 mg PO DAILY Arrhythmia 11/03/24
potassium chloride 8 mEq tablet,extended release 8 meq PO DAILY 11/03/24
Review of Systems
-
Constitutional: Reports No Symptoms
EENT: Reports No Symptoms
Respiratory: Reports No Symptoms
Cardiac: Reports No Symptoms
Abdomen/GI: Reports No Symptoms
: Reports No Symptoms
Musculoskeletal: Reports No Symptoms
Skin: Reports No Symptoms
Neurological: Reports Weakness
Endocrine: Reports No Symptoms
Hematologic/Lymphatic: Reports No Symptoms
Psych: Reports No Symptoms
Physical Exam
Vital Signs
Vital Signs
Pulse Resp BP Pulse Ox
94 13 124/84 95
11/03/24 17:30 11/03/24 17:30 11/03/24 17:00 11/03/24 17:00
Physical Exam
General: Well Developed, Well Nourished and No Apparent Distress
HEENT: NormoCephalic, Moist mucous membranes and Atraumatic
Respiratory: Crackles
Cardiac: S1/S2 and Regular Rhythm; No Murmur or Rub
GI: Soft, Non Tender, Non Distended and Normal Bowel Sounds; No Organomegaly
Rectal: Deferred by Provider
Musculoskeletal: No Clubbing, No Cyanosis and No Edema
Skin: No Rash
Neuro: AO x 3 and Nonfocal/grossly intact
Psych: Calm
Laboratory Results
-
11/03/24 14:26
11/03/24 14:
Laboratory Results
PT 20.6 Sec (11.4-14.6) H 11/03/24 14:26
INR 1.74 11/03/24 14:
APTT 30.4 Sec (23.4-35.0) 11/03/24 14:
Total Bilirubin 2.7 mg/dl (0.2-1.3) H 11/03/24 14:
AST 33 U/L (14-36) 11/03/24 14:
ALT 26 U/L (0-35) 11/03/24 14:
Alkaline Phosphatase 103 U/L (38-126) 11/03/24 14:
Troponin I 0.031 ng/ml 11/03/24 17:20
Data Reviewed
-
Lab Data: Labs Reviewed by me
Impression/Plan
-
#A-fib with controlled heart rate
##Hx chronic LBBB left bundle branch block
-EKG with A-fib. Left bundle branch block
- History of cardioversion
- Amiodarone, Eliquis continued
- Metoprolol continued
#acute hypoxic respiratory failure secondary Acute exacerbation of CHF
-Patient requiring 2 L of oxygen, continue supplemental oxygen to keep sat >95
-Wean as tolerated
-I/O, daily weights
-reduced ef 40-45%
-cont IV Lasix today
-Fluid restrict
-BNP 54238
- Cardiology consulted
# HTN�essential
- cont metoprolol
#CKD3a
-Continue to monitor
#HLD
- cont atorvastatin
#CODE- FULL
#DVT prophylaxis- eliquis
--- NOTE | 2024-11-03 19:06 | W.PN.UPDATE ---
Update Note
Progress Note Update
I saw and examined the patient.
The CARBURETOR EXPERT Flaquito's note was reviewed and I agree with the note.
Comment: 89 y/o F, hx of Afib on Eliquis, Chronic CHF, HTN, HLD presents to ER for SOB with rest and exertion, weakness, decreasing appetite. + Orthopnea. No CP or fever/chills. No other complaints. In ER, BNP [id number]. CXR report pending but
suggestive of basilar edema. Trop negative. Tele with Afib in 120s.
Exam:
General: Well Developed, Well Nourished and No Apparent Distress
HEENT: Normocephalic, Moist mucous membranes and Atraumatic
Respiratory: Crackles
Cardiac: S1/S2 and Regular Rhythm; No Murmur or Rub
GI: Soft, Non Tender, Non Distended and Normal Bowel Sounds; No Organomegaly
Rectal: Deferred by Provider
Musculoskeletal: No Clubbing, No Cyanosis and No Edema
Skin: No Rash
Neuro: AO x 3 and Nonfocal/grossly intact
Psych: Calm
Assessment: Acute HFpEF - start IV Lasix 40mg daily. Monitor weights, lytes, I/Os. Continue Metoprolol and Eliquis, add prn Lopressor. If rapid Afib persists, will need Cardizem drip. continue Amiodarone. Monitor on 2L NC. DCA cards consulted.
[2024-11-03] MEDS: OCUVITE SOFTGEL 1 CAP PO (20:55)
[2024-11-03] MEDS: ELIQUIS 2.5 MG PO (20:55)
[2024-11-03] MEDS: MELATONIN 5 MG PO (22:05)
[2024-11-04] VITALS (9 sets, daily range): BP systolic 118–145; BP diastolic 59–95; PULSE 104–109; O2SAT 93–99; BMI 20.6
--- NOTE | 2024-11-04 02:53 | DOWNTIME ---
There was a [employer] Client English Language Arts Teacher Downtime on 11/04/2024 from 0100 to 11/04/2024 at 0215. Downtime documentation of patient's care, including medication administrations, has been reconciled in the electronic record per guidelines. Refer to the
patient's paper chart under the miscellaneous tab to see printed paper medication records and downtime forms.
[2024-11-04 08:14] LABS: Hematocrit 34.0 % (37.0-47.0); Hemoglobin 11.0 g/dL (12.0-16.0); Mean Corp Hgb Conc. 32.4 g/dL (33.0-37.0); Mean Corpuscular Volume 85.2 fL (81.0-99.0); Platelet Count 282 10^3/uL (130-400); Red Cell Dist. Width 15.1 % (11.5-14.5)
[2024-11-04] MEDS: ELIQUIS 2.5 MG PO ×2 (08:36→19:59)
[2024-11-04] MEDS: KCL 10 MEQ PO (08:37)
[2024-11-04] MEDS: TOPROL XL 100 MG PO (08:37)
[2024-11-04] MEDS: LIPITOR 10 MG PO (08:37)
[2024-11-04] MEDS: PACERONE 200 MG PO (08:37)
[2024-11-04] MEDS: LASIX 40 MG IV ×2 (08:37→16:17)
[2024-11-04] MEDS: OCUVITE SOFTGEL 1 CAP PO ×2 (08:38→19:59)
[2024-11-04 09:26] LABS: Blood Urea Nitrogen 44 mg/dl (7-17); Calcium 9.0 mg/dl (8.4-10.2); Carbon Dioxide 22 mmol/L (22-30); Chloride 105 mmol/L (98-107); Estimated Creatinine Clearance 25 ml/min; Glucose 109 mg/dl (70-99); HDL Cholesterol 40 mg/dl; LDL Cholesterol, Calculated 40 mg/dl; Magnesium 2.1 mg/dl (1.6-2.3); Potassium 4.3 mmol/L (3.5-5.1); Sodium 137 mmol/L (135-145); Very Low Density Lipoprotein 21 mg/dl (0-30); eGFR 39.80
--- NOTE | 2024-11-04 10:07 | CON.CAR ---
Addendum entered and electronically signed by Tae Mercado DO 11/04/24 17:40:
I saw and examined the patient.
The [employer]'s note was reviewed and I agree with the note.
Comment:
Plan:
Returns in recurrent atrial fibrillation with evidence of heart failure.
Increase Lasix to 40 mg IV twice daily.
The cause of her heart failure may be multifactorial from cardiomyopathy, significant mitral regurgitation and recurrent atrial fibrillation.
Discussed with electrophysiology. Increase amiodarone to 400 mg 3 times daily for reload amiodarone and consider repeat cardioversion this admission.
If she continues to have heart failure despite sinus rhythm, her heart failure may be secondary to significant mitral regurgitation.
Recheck echo to evaluate left ventricular systolic function and mitral regurgitation once she is back in sinus rhythm.
-Patient is not chronically on ORALIA/ARB/ARNI/aldosterone antagonist due to CKD
-Patient has not been interested in SGLT2 inhibitor in the past
For now, will continue Toprol at current outpt dosing.
She has been less enthusiastic about invasive procedures.
Discussed with primary service.
Her daughter was updated.
Original Note:
Consultation
Consultation Request
Date/Time Consultation Requested: 11/03/24 at 202
Date/Time Consultation Performed: 11/04/24 at 1034
Requesting Provider: Dr. Baer
Performing Provider: Dr. Mercado
Reason for Consultation: Acute HF, Afib
Medical History
-
History of Present Illness:
Patient came to the hospital yesterday with increased SOB and was found to be in recurrent A-fib along with acute HF and was admitted to the hospital with cardiology being consulted. As you recall patient was admitted to the hospital 09/18/2024 until
09/23/2024 with acute HFrEF and rapid A-fib. On admission the patient was taking amiodarone 200 mg daily and during admission we increased that dose to 200 mg BID and continued OAC with the plan for eventual outpatient CV. Patient was also diuresed
and when she followed up in the office on 09/28/2024 she appeared stable and the plan was for CV in 3 weeks, but the patient presented herself to the ER on 10/09/2024 hoping to expedite CV due to symptomatic A-fib. Patient had successful CV in the ER
on 10/09/2024 and has not been seen in the office since. Patient came to the ER yesterday with increased SOB that her family was worried that she was in A-fib. ECG in the ER looked like A-fib. proBNP was also the highest level she is ever had a
26,800. Patient reports compliance with her usual dose of Lasix 20 mg PO daily.
PMH:
Recent ER visit for rapid A-fib and successful CV 10/09/2024
Recent admission for acute HF and rapid A-fib 09/18/2024 until 09/23/2024
Paroxysmal A-fib
Chronic amiodarone therapy
Chronic Eliquis OAC
Chronic HFrEF
h/o NICM EF was 40 to 45% by echo 2018 and then improved to 59% by echo 2023
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
HTN
Left bundle branch block
Dyslipidemia
Valvular heart disease
GERD
Osteoporosis
Arthritis
Fatigue
Decreased appetite
Past Medical History
Past Medical History: Other (See HPI)
Past Surgical History: Other (Orthopedics; appendectomy; lumpectomy; cardioversion 09/2017; cardiac cath 08/2018)
Social History
Tobacco: Non-Smoker
Alcohol: Occasional
Drug: None
Living: Alone
Employment: Retired
Family History
Family History: CAD
Allergies / Home Medications
Allergy/AdvReac Type Severity Reaction Status Date / Time
Penicillins Allergy LEG Verified 10/09/24 04:26
SWELLING
62 YEARS
AGO
�Medication �Instructions �Recorded �Confirmed �Type
vit C 250 mg-vit E 90 mg-zinc 40 1 cap PO BID Supplement 09/30/17 11/03/24 History
mg-copper 1 [id number]
capsule (PreserVision AREDS-2)
atorvastatin 10 mg tablet 10 mg PO DAILY High Cholesterol 11/02/22 11/03/24 History
apixaban 2.5 mg tablet (Eliquis) 2.5 mg PO BID Blood Clot 12/10/22 11/03/24 History
Prevention/Tx
furosemide 20 mg tablet 20 mg PO DAILY #60 tabs 09/23/24 11/03/24 Rx
metoprolol succinate 100 mg 100 mg PO DAILY Arrhythmia #60 tabs 09/23/24 11/03/24 Rx
tablet,extended release 24 hr
amiodarone 200 mg tablet (Pacerone) 200 mg PO DAILY Arrhythmia 11/03/24 11/03/24 History
potassium chloride 8 mEq 8 meq PO DAILY Electrolyte 11/03/24 11/03/24 History
tablet,extended release Repletion
Review of Systems
-
History Source: Patient
All other systems: Negative unless noted
Physical Exam
Vital Signs
Temp Pulse Resp BP Pulse Ox
97.7 F 95 16 145/88 95
11/04/24 07:00 11/04/24 08:37 11/04/24 07:00 11/04/24 08:37 11/04/24 07:00
GEN: NAD. AAO to person, place and situation
HEENT: EOMI, MMM
LUNGS: 2 L NC. Few rales without wheeze
CV: Afib on tele. Irreg irreg, S1/S2, 1 syst LSB
ABD: ND
EXT: No edema B/L LE
NEURO: Gross non-focal
SKIN: Warm, pink, dry. No rash.
Lab Results
11/04/24 07:40
11/04/24 07:40
Troponin I 0.031 ng/ml 11/03/24 17:20
Agr-W-Pybxzrjvgic Pept 93120 pg/ml 11/03/24 14:26
Impression / Plan
-
PCP: Dr. Shaina Hernandez
Junior Administrative Assistant: Dr Tae Mercado
Impression
Admitted with acute HF and A-fib 11/03/2024
Recent ER visit for rapid A-fib and successful CV 10/09/2024
Recent admission for acute HF and rapid A-fib 09/18/2024 until 09/23/2024
Recurrence of paroxysmal A-fib
Paroxysmal A-fib
Chronic amiodarone therapy
Chronic Eliquis OAC
Acute on chronic HFrEF
h/o NICM EF was 40 to 45% by echo 2018 and then improved to 59% by echo 2023
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
HTN
Left bundle branch block
Dyslipidemia
Valvular heart disease
GERD
Osteoporosis
Arthritis
Fatigue
Decreased appetite
GLORIA 10/22/2018: Mildly reduced LV systolic function EF 40-45%, biatrial enlargement, moderate eccentric MR, moderate TR, mild AI
Echo 11/06/2023: Small LV size, EF 59%, mild concentric LVH with discrete upper septal thickening, grade 2 diastolic dysfunction, normal RV size and function, moderate MR, mild AI, moderate to severe TR with PASP 74 mmHg
Echo 09/18/2024: Normal LV size, mildly reduced LV systolic function with EF 40-45%, septal, inferior hypokinesis, mild concentric LVH, normal RV size and function, MAC, mild MS, mod to severe MR, mild AI, moderate TR with PASP 65 to 70 mmHg
Plan:
-Patient came to the hospital yesterday with increased SOB and was found to be in recurrent A-fib along with acute HF and was admitted to the hospital with cardiology being consulted. As you recall patient was admitted to the hospital 09/18/2024
until 09/23/2024 with acute HFrEF and rapid A-fib. On admission the patient was taking amiodarone 200 mg daily and during admission we increased that dose to 200 mg BID and continued OAC with the plan for eventual outpatient CV. Patient was also
diuresed and when she followed up in the office on 09/28/2024 she appeared stable and the plan was for CV in 3 weeks, but the patient presented herself to the ER on 10/09/2024 hoping to expedite CV due to symptomatic A-fib. Patient had successful CV
in the ER on 10/09/2024 and has not been seen in the office since. Patient came to the ER yesterday with increased SOB that her family was worried that she was in A-fib. ECG in the ER looked like A-fib. proBNP was also the highest level she is
ever had a 26,800. Patient reports compliance with her usual dose of Lasix 20 mg PO daily.
-ECG reviewed by me is A-fib with chronic LBBB and heart rate is 95
-Telemetry reviewed by me shows ongoing A-fib with heart rates 85 to 105 bpm
-Patient has recurrent A-fib despite chronic amiodarone therapy including re-loading of amiodarone in early September. CV was successful 10/09/2024 but patient has recurred with A-fib in less than a month. We talked about rhythm control strategies
given recurrent HF. Reviewed with EP attending and patient will need a 2-week washout of amiodarone prior to starting Tikosyn. CrCl is 25 using a Cre of 1.3 on today's labs that were reviewed by me. Tikosyn dose would be 125 mcg every 12 hours.
This could be a bridge to eventual ablation. For now we have stopped amiodarone and will follow on telemetry.
-Increase outpatient dose of Toprol-XL to 100 mg a.m. and 50 mg p.m. daily
-Outpatient dose of Eliquis 2.5 mg BID (age 89, Cre 1.3, wt 52.6 kg) has been continued
-Patient also had moderate to severe MR by echo 09/18/2024. Repeat echo limited study to recheck EF and evaluate mitral valve ordered by me
-If patient has recurrent HF in SR then we will need to consider.
-Patient appears to be in acute HF with a proBNP at her highest level ever at 26,800, but also is lower than previous dry weight at 116 lbs on 11/04/2024.
-Patient was taking Lasix 20 mg PO daily prior to admission and was ordered Lasix 40 mg IV daily initially, but dose increased to 40 mg IV BID by me on 11/04/2024.
-Follow labs on a daily basis and will need to establish a new dry weight
-Toprol-XL as noted above
-Patient is not chronically on ORALIA/ARB/ARNI/aldosterone antagonist due to CKD
-Patient has not been interested in SGLT2 inhibitor in the past
--- NOTE | 2024-11-04 11:04 | W.PN.HOSP.TC ---
Today's Communication/Plan
-
CW IV diuresis
Assessment / Plan
Assessment / Plan
#A-fib with RVR
##Hx chronic LBBB left bundle branch block
-EKG with A-fib. Left bundle branch block
- History of cardioversion 2 weeks ago
- On Amiodarone, Eliquis
- On Metoprolol
- With recurrent breakthrough symptomatic RVR will dw cards about suitability of other anti arrhythmic meds /ablation
#acute hypoxic respiratory failure secondary Acute exacerbation of CHF
-Patient requiring 2 L of oxygen, continue supplemental oxygen to keep sat >95
-Wean as tolerated
-I/O, daily weights
-reduced ef 40-45%
-cont IV Lasix
-Fluid restrict
-BNP 77934
- Cardiology consulted
# HTN�essential
- cont metoprolol
#CKD3a
-Continue to monitor
- Follow Cr closely while on IV diuresis
#HLD
- cont atorvastatin
#CODE- FULL
#DVT prophylaxis- eliquis
Discussed with cardiology this morning
Total time spent on today's encounter was 52 minutes which included time spent in counseling the patient/family regarding diagnosis and treatment plan as listed above, goals of care, and symptom management. Case was discussed with nursing staff,
specialists, and care coordinators/case management. All labs and imaging personally reviewed by me. Remainder the time spent in detailed review of previous records, lab data, imaging, and other medical provider documentation.
Portions of this chart may have been created with voice recognition software. Occasional wrong word or 'sound alike' substitutions may have occurred due to the inherent limitations of voice recognition software.
Anticipated Discharge: > 48 hours
Subjective/Interval History
-
Date of Service: November 04, 2024
Patient lying comfortably in bed today. No respiratory distress noted.
Denies any shortness of breath at rest. No palpitation. No chest pain.
No lightheadedness.
Objective Data
-
Labs:
Laboratory Results
11/04/24
07:40
WBC 9.4
Hgb 11.0 L
Hct 34.0 L
Plt Count 282
Sodium 137
Potassium 4.3
Chloride 105
Carbon Dioxide 22
BUN 44 H
Creatinine 1.3 H
Glucose 109 H
Calcium 9.0
Vital Signs:
Vital Signs
Temp Pulse Resp BP Pulse Ox
97.7 F 95 16 145/88 95
11/04/24 07:00 11/04/24 08:37 11/04/24 07:00 11/04/24 08:37 11/04/24 07:00
I&O
11/03/24 11/04/24 11/05/24
06:59 06:59 06:59
Intake Total 480 / 480
Output Total 300 / 300 450 / 450
Balance -300 / -300 30 / 30
Physical Exam
-
General: Comfortable
Respiratory: Non Labored Respirations; Negative Wheezes, Crackles or Accessory Resp Muscle Use
Cardiac: S1/S2, Irregular Rhythm and Tachycardic
Musculoskeletal: No Edema
Neuro: AO x 3
Psych: Calm; Negative Confused or Agitated
Data Reviewed
-
Labs: Labs Reviewed by me
--- NOTE | 2024-11-04 16:06 | W.PN.UPDATE ---
Update Note
Progress Note Update
Talked with patient's daughter, Francia, by phone for 7 minutes and provided update regarding hospitalization thus far and plans for increased amiodarone loading. We are no longer proceeding with amiodarone washout and eventual Tikosyn loading and
instead the plan is to start amiodarone 400 mg TID starting now. We also reviewed echo that showed EF reduced at 25% and plans for ongoing diuresis.
[2024-11-04] MEDS: PACERONE 400 MG PO ×2 (16:17→21:51)
[2024-11-04] MEDS: TOPROL XL 50 MG PO (19:59)
[2024-11-04] MEDS: MELATONIN 5 MG PO (23:46)
--- NOTE | 2024-11-05 02:33 | PTCARENOTE ---
Patient remains confused, uncooperative and agitated at times. trying to get OOB, pulling off oxygen and heart monitor. needs frequent direction bed alarm engaged.
[2024-11-05 04:34] VITALS: BP 119/68
[2024-11-05 06:00] VITALS: BMI 20.4
--- NOTE | 2024-11-05 06:54 | W.PN.UPDATE ---
Update Note
Progress Note Update
RN reports increasing confusion and restlessness overnight. Melatonin did not help sleep.
This am pt needing restraints. Will check UA (r/o uti), Ct head for new confusion
[2024-11-05 07:40] VITALS: BP 130/76
--- NOTE | 2024-11-05 07:59 | W.PN.CARDCBS ---
Addendum entered and electronically signed by Tae Mercado DO 11/05/24 16:39:
I saw and examined the patient.
The [employer]'s note was reviewed and I agree with the note.
Comment:
Plan:
Continue amiodarone load 400 mg 3 times daily
Will consider cardioversion prior to discharge after amiodarone load. She did not appear to be a good candidate for alternative antiarrhythmic therapy such as Tikosyn
Continue Toprol for rate control
Continue Eliquis for stroke prophylaxis
Continue IV diuresis. Her wt is slowly coming down.
Will reevaluate left ventricular systolic function following return to sinus rhythm and diuresis.
We discussed her significant mitral valve regurgitation and reduced EF. In review of her echocardiogram her anatomy may be difficult for invasive intervention such as MitraClip
Continue supportive care
Discussed with primary service.
Original Note:
Today's Communication / Plan
-
-cont Amio load 400 mg TID
-t/c CV after Amio load
-cont diuresis
Impression / Plan
-
PCP: Dr. Shaina Hernandez
Electronic Development Technician: Dr Tae Mercado
Impression
Admitted with acute HF and A-fib 11/03/2024
Recent ER visit for rapid A-fib and successful CV 10/09/2024
Recent admission for acute HF and rapid A-fib 09/18/2024 until 09/23/2024
Recurrence of paroxysmal A-fib
Paroxysmal A-fib
Chronic amiodarone therapy
Chronic Eliquis OAC
Acute on chronic HFrEF
h/o NICM EF was 40 to 45% by echo 2018 and then improved to 59% by echo 2023
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
HTN
Left bundle branch block
Dyslipidemia
Valvular heart disease
GERD
Osteoporosis
Arthritis
Fatigue
Decreased appetite
GLORIA 10/22/2018: Mildly reduced LV systolic function EF 40-45%, biatrial enlargement, moderate eccentric MR, moderate TR, mild AI
Echo 11/06/2023: Small LV size, EF 59%, mild concentric LVH with discrete upper septal thickening, grade 2 diastolic dysfunction, normal RV size and function, moderate MR, mild AI, moderate to severe TR with PASP 74 mmHg
Echo 09/18/2024: Normal LV size, mildly reduced LV systolic function with EF 40-45%, septal, inferior hypokinesis, mild concentric LVH, normal RV size and function, MAC, mild MS, mod to severe MR, mild AI, moderate TR with PASP 65 to 70 mmHg
Plan:
-Patient presented 11/03/2024 with increased SOB and was found to be in recurrent A-fib along with acute HF. proBNP 26,800-her highest BNP on record. Of note previous admit 09/18/2024- 09/23/2024 with acute HFrEF (proBNP 15,600) and rapid A-fib, Amio
uptitrated with plan for outpt CV, then presented to ED in afib and had CV in ED 10/09/2024.
- Initial presented ECG 11/03/2024 A-fib with chronic LBBB and heart rate is 95
-recurrent afib despite chronic amiodarone therapy including re-loading of amiodarone in early September.
--reloading AMio now at higher dose of Amio 400 mg tid-started 11/04/2024. If she does not spontaneously convert to NSR, plan for CV 11/09/2024, then d/c
-Telemetry reviewed by me shows ongoing A-fib with heart rates in 90s.
-there was consideration and discussion with EP about changing antiarrhythmic from Amio to Tikosyn, which would need a 2-week washout of amiodarone prior to starting Tikosyn. CrCl is 25 using a Cre of 1.3 on11/04/24 labs and would be Tikosyn 125 mcg
bid dose. Utimately it was decided to reload amiodarone at higher dose as above and consider repeat cardioversion this admission.
- She does have significant mitral regurgitation on echocardiogram and new LV dysfunction with EF 25% down from 40 to 45% on echo 09/18/2024 and there is concern that her heart failure could be related to severe MR/TR
-cont Toprol-XL 100 mg a.m. and 50 mg p.m.
-Outpatient dose of Eliquis 2.5 mg BID (age 89, Cre 1.3, wt 52.6 kg) has been continued
-Patient appears to be in acute HF with a proBNP at her highest level ever at 26,800, but also is lower than previous dry weight at 116 lbs on 11/04/2024.
-Patient was taking Lasix 20 mg PO daily prior to admission and was ordered Lasix 40 mg IV daily initially, but dose increased to 40 mg IV BID on 11/04/2024. Wt down 1 lb overnight to 115 lbs
-creat stable 1.2
-K 3.7. on KCl 10 meq daily, will give extra KCl 20 meq today.
-Follow labs on a daily basis and will need to establish a new dry weight
-Patient is not chronically on ORALIA/ARB/ARNI/aldosterone antagonist due to CKD
-Patient has not been interested in SGLT2 inhibitor in the past
Progress Note - Electronic Development Technician
Subjective
Date of Service: November 05, 2024
-no palps, SOB, CP
-confused overnight and needed restraints. Head CT checked and without acute intracranial abnormality.
-pt pleasant and answering questions appropriately this am
Objective
Labs:
Labs
Hgb 11.0 g/dL (12.0-16.0) L 11/04/24 07:40
Hct 34.0 % (37.0-47.0) L 11/04/24 07:40
Plt Count 282 10^3/uL (130-400) 11/04/24 07:40
PT 20.6 Sec (11.4-14.6) H 11/03/24 14:26
INR 1.74 11/03/24 14:26
APTT 30.4 Sec (23.4-35.0) 11/03/24 14:26
Sodium 137 mmol/L (135-145) 11/04/24 07:40
Potassium 4.3 mmol/L (3.5-5.1) 11/04/24 07:40
BUN 44 mg/dl (7-17) H 11/04/24 07:40
Creatinine 1.3 mg/dL (0.6-1.0) H 11/04/24 07:40
Glucose 109 mg/dl (70-99) H 11/04/24 07:40
Troponins
11/03/24 11/03/24
14:26 17:20
Troponin I 0.033 0.031
Vital Signs and I&O:
Vital Signs
Temp Pulse Resp BP Pulse Ox
97.6 F 95 20 119/68 93
11/04/24 23:42 11/05/24 04:34 11/04/24 23:42 11/05/24 04:34 11/05/24 04:34
Vital Signs
Temp Pulse Resp BP Pulse Ox
97.6 F 95 20 119/68 93
11/04/24 23:42 11/05/24 04:34 11/04/24 23:42 11/05/24 04:34 11/05/24 04:34
Intake & Output
11/03/24 11/04/24 11/05/24 11/06/24
06:59 06:59 06:59 06:59
Intake Total 1140 / 1140
Output Total 300 / 300 1400 / 1400 200 / 200
Balance -300 / -300 -260 / -260 -200 / -200
Physical Exam
Physical Exam
GEN: No distress, awake, Ox3
HEENT: supple, anicteric, mmm
LUNGS: CTA, no wheezes/rales
CV: irreg, irreg, S1/S2, 2/6 systolic murmur
ABD: soft, BS+, NT/ND
EXT: No edema
NEURO: Gross non-focal
SKIN: No rash
--- NOTE | 2024-11-05 09:24 | CM ---
Patient seen bedside, initial assessment completed. Patient is a 89-year-old female with history of atrial fibrillation on Eliquis, CHF, HTN, HL D presents for gradually worsening weakness, decreased appetite, shortness of breath over the past week.
2L O2.
Patient resides alone in a single story home, no steps at back entrance. Patient is independent w/ ambulation, no device required. Owns a RW but does not use. Independent w/ ADLs and personal care. Patient has a tub grab bar. Patient currently on 2L
O2, does not use any O2 at baseline. Denies SNF/HC hx.
Address, point of contact and insurance verified
PCP: Shaina Hernandez
Pharmacy: [facility]. Patient stated she uses [facility] pharmacy for online/mail orders
Therapy assessed, currently rec SNF at d/c. Discussed w/ patient who stated she doesn't want to go to rehab and will be okay going home. CM asked patient if she has any support if she was to go home, patient stated her daughter would be able to help
her. CM will call patient's daughter to further discuss as patient was a little confused during time of assessment. Patient asked where she was at and CM informed she was in the hospital. Patient stated she is not sure if her daughter is aware she
is in the hospital and that her daughter has her phone and wallet.
Plan: SNF recommended
[2024-11-05] MEDS: OCUVITE SOFTGEL 1 CAP PO ×2 (09:31→20:02)
[2024-11-05] MEDS: PACERONE 400 MG PO ×3 (09:31→21:22)
[2024-11-05] MEDS: TOPROL XL 50 MG PO ×2 (09:32→21:21)
[2024-11-05] MEDS: LASIX 40 MG IV ×2 (09:32→16:23)
[2024-11-05] MEDS: LIPITOR 10 MG PO (09:32)
[2024-11-05] MEDS: KCL 10 MEQ PO (09:32)
[2024-11-05] MEDS: ELIQUIS 2.5 MG PO ×2 (09:32→20:02)
[2024-11-05] MEDS: FLUSH (NSS) 1 FLUSH IV ×2 (09:33→16:23)
[2024-11-05 09:36] LABS: Hematocrit 33.3 % (37.0-47.0); Hemoglobin 10.9 g/dL (12.0-16.0); Mean Corp Hgb Conc. 32.7 g/dL (33.0-37.0); Mean Corpuscular Volume 84.7 fL (81.0-99.0); Platelet Count 246 10^3/uL (130-400); Red Cell Dist. Width 15.1 % (11.5-14.5)
[2024-11-05 10:49] LABS: Blood Urea Nitrogen 43 mg/dl (7-17); Calcium 9.1 mg/dl (8.4-10.2); Carbon Dioxide 21 mmol/L (22-30); Chloride 105 mmol/L (98-107); Estimated Creatinine Clearance 27 ml/min; Glucose 101 mg/dl (70-99); Potassium 3.7 mmol/L (3.5-5.1); Sodium 139 mmol/L (135-145); eGFR 43.81
[2024-11-05 10:55] VITALS: BMI 20.4
--- NOTE | 2024-11-05 11:07 | CM ---
Chart reviewed. Patient increasing confusion, is uncooperative and agitated. Restraints implemented.
CM spoke w/ daughter, Francia, informed of patient's confusion at this time. Discussed therapy recommendation of SNF at d/c. Per Francia, she also has been seeing some confusion w/ patient and not sure the cause of it. Francia agreeable to SNF for
patient, believes patient will agree. CM informed Francia that if patient continues to be confused or continues to decline rehab, CM will want to work on d/c planning w/ her. Francia understood this and wants to see how patient's mentation progresses
and if she progresses w/ therapy
Plan: SNF recommended. CM will cont to follow patient's progress
[2024-11-05 11:15] VITALS: BP 118/61
[2024-11-05 11:56] LABS: Urine Character Clear (Clear)
[2024-11-05 12:34] LABS: Urine White Cell 16-20 /HPF (0-5)
[2024-11-05 12:49] LABS: Urine Red Blood Cell 0-2 /HPF (0-2)
--- NOTE | 2024-11-05 14:47 | W.PN.HOSP.TC ---
Today's Communication/Plan
-
CW IV lasix
CW Amio
BMP in am
Assessment / Plan
Assessment / Plan
#A-fib with RVR
##Hx chronic LBBB left bundle branch block
-EKG with A-fib. Left bundle branch block
- History of cardioversion 2 weeks ago
- On Amiodarone, Eliquis - dose of amio increased
- On Metoprolol
#acute hypoxic respiratory failure secondary Acute exacerbation of CHF
-Patient requiring 2 L of oxygen, continue supplemental oxygen to keep sat >95
-Wean as tolerated
-I/O, daily weights
-reduced ef 28%
-cont IV Lasix
-Fluid restrict
-BNP 62745
- Cardiology input noted
# Transient confusion -last night . Cognitive decline intermittently in last month ? TME from acute dz ? .
CT head neg for acute intracranial findings
Non focal neurologically today
Would probably need neuropsychological testing for dementia dx once acute cardiac issues are stabalized.
# HTN�essential
- cont metoprolol
#CKD3a
-Continue to monitor
- Follow Cr closely while on IV diuresis
#HLD
- cont atorvastatin
#CODE- FULL
#DVT prophylaxis- eliquis
Discussed with cardiology this morning
DW daughter on phone and updated
Portions of this chart may have been created with voice recognition software. Occasional wrong word or 'sound alike' substitutions may have occurred due to the inherent limitations of voice recognition software.
Anticipated Discharge: > 48 hours
Subjective/Interval History
-
Date of Service: November 05, 2024
Last night events noted.
Patient is alert and oriented *3 this am.
RN also noticed her to be alert and oriented without agitation.
Pt says she was flustered as she could work with the phone or call button properly. She wanted to speak to her daughter who couldnt come to see her due to respiratory illness.
She doesnt think she was confused .
Daughter told me that she has seen some forgetfulness and confusion since a month. No sundowning in particular.
Denies SOB ,CP or palpitations
Denies N/V
Objective Data
-
Labs:
Laboratory Results
11/05/24
08:23
WBC 10.3
Hgb 10.9 L
Hct 33.3 L
Plt Count 246
Sodium 139
Potassium 3.7
Chloride 105
Carbon Dioxide 21 L
BUN 43 H
Creatinine 1.2 H
Glucose 101 H
Calcium 9.1
Vital Signs:
Vital Signs
Temp Pulse Resp BP Pulse Ox
97.6 F 83 18 118/61 84
11/05/24 11:15 11/05/24 11:15 11/05/24 11:15 11/05/24 11:15 11/05/24 13:20
I&O
11/04/24 11/05/24 11/06/24
06:59 06:59 06:59
Intake Total 1140 / 1140
Output Total 300 / 300 1400 / 1400 200 / 200
Balance -300 / -300 -260 / -260 -200 / -200
Physical Exam
-
General: No Apparent Distress
Respiratory: Clear to Auscultation, Crackles and Non Labored Respirations; Negative Wheezes or Accessory Resp Muscle Use
Cardiac: S1/S2 and Irregular Rhythm; Negative Tachycardic
GI: Soft
Musculoskeletal: No Edema
Neuro: AO x 3
Psych: Calm; Negative Agitated
Data Reviewed
-
Labs: Labs Reviewed by me
[2024-11-05 15:30] VITALS: BP 124/75
--- NOTE | 2024-11-05 15:39 | PTCARENOTE ---
Pt AAO x3, sl forgetful at times. Occ needs direction with activities. Pleasant and cooperative. BLACK well, OOB to BSC with minimal assistance; denies weakness/dizziness with activity. VSS. Telemetry:A fib. maintained on nc 2 lpm- pulse ox 98%,
pt denies SOB. Pt occ removes nc; room air pulse ox 84%. Abd soft, rounded, viviana PO ,appetite fair. Voids clear yellow urine on BSC. Resting in bed at present, no c/o. Will continue to monitor.
--- NOTE | 2024-11-05 17:32 | W.PN.UPDATE ---
Update Note
Progress Note Update
called her daughter Francia and gave her an update. She was appreciative of the call.
[2024-11-05 19:30] VITALS: BP 99/54
[2024-11-05 22:25] VITALS: BMI 20.4
[2024-11-05 23:13] VITALS: BP 117/65
[2024-11-06] VITALS (11 sets, daily range): BP systolic 100–138; BP diastolic 58–88; PULSE 83–99; O2SAT 99; BMI 19.6
[2024-11-06 08:34] LABS: Hematocrit 34.1 % (37.0-47.0); Hemoglobin 11.0 g/dL (12.0-16.0); Mean Corp Hgb Conc. 32.3 g/dL (33.0-37.0); Mean Corpuscular Volume 85.5 fL (81.0-99.0); Platelet Count 254 10^3/uL (130-400); Red Cell Dist. Width 15.1 % (11.5-14.5)
[2024-11-06] MEDS: PACERONE 400 MG PO ×2 (09:23→15:10)
[2024-11-06] MEDS: LIPITOR 10 MG PO (09:23)
[2024-11-06] MEDS: KCL 10 MEQ PO (09:23)
[2024-11-06] MEDS: ELIQUIS 2.5 MG PO ×2 (09:23→19:29)
[2024-11-06] MEDS: TOPROL XL 50 MG PO ×2 (09:24→19:29)
[2024-11-06] MEDS: OCUVITE SOFTGEL 1 CAP PO ×2 (09:24→19:29)
[2024-11-06 09:50] LABS: Blood Urea Nitrogen 36 mg/dl (7-17); Calcium 8.4 mg/dl (8.4-10.2); Carbon Dioxide 25 mmol/L (22-30); Chloride 104 mmol/L (98-107); Estimated Creatinine Clearance 29 ml/min; Glucose 89 mg/dl (70-99); Potassium 3.6 mmol/L (3.5-5.1); Sodium 139 mmol/L (135-145); eGFR 48.63
[2024-11-06] MEDS: LASIX 40 MG IV ×2 (10:09→15:10)
--- NOTE | 2024-11-06 10:48 | PTOTSP ---
BCAT 50
See below for details.
Impression:This BCAT� score indicates significant cognitive impairment and/or mild stage dementia.
This BCAT� total score is suggestive of significant cognitive impairment. Persons with this score usually have difficulties in making new memories, as well as problems in other cognitive areas, especially with executive functions. As for impairment
in memory, this should not be confused with the ability to recall events, places, and people from the distant past. When healthcare professionals think about memory capability, they are referring to the prospective ability to make a new memory. Many
people with mild stage dementia are able to recall facts from the remote past but have problems remembering recent events and learning new material.
Individuals with this BCAT� score may also have problems with executive control functions (ECFs). ECFs can be thought of as our cognitive 'controls designer' center. Executive abilities include complex cognitive skills such as judgment, planning,
organization, and problem-solving. ECFs have a direct impact on the self-management of instrumental activities of daily living (IADL), such as shopping, laundry, transportation, medication, telephone, housekeeping, and finances. Persons with this
BCAT� score often have problems in these areas, which could place them at safety risk if they are living in a situation without some level of direct support.
The BCAT� test produces a score that can help 'stage' dementia or significant cognitive dysfunction. It can also help identify individuals with mild versus moderate - severe dementia. For patients with dementia, BCAT� scores of 25 to 33 are
suggestive of mild stage. You might consider administering the Brief Cognitive Impairment Scale (BCIS�) to get even more information about cognitive and behavioral functioning. The BCIS� is designed for patients with significant cognitive impairment
and can be completed interactively on the BCAT� website (www.thebcat.com).
Total Contextual Memory Factor (CMF) Score: 11
The Contextual Memory Factor (CMF) indicates current verbal memory skills. It is highly predictive of cognitive diagnosis (MCI versus dementia) and instrumental activities of daily living (IADL). It is also sensitive to those who have amnestic MCI
(and who do not have dementia). The score range is 0-15. Scores below 12 typically indicate significant memory concerns that can impact everyday living. A score of 14, combined with a total BCAT� score in the MCI range, is often associated with
dda-fizguaff-JRW. When this occurs, a review of executive functions and other cognitive domains may be helpful.
Total Executive Control Functions Factor (ECFF) Score: 2
The Executive Control Functions Factor (ECFF) indicates current executive control functions abilities. There is a strong correlation between ECFF and predicting everyday activities of daily living, especially the higher order skills involving
judgment, problem-solving, and reasoning. The score range is 0-7. Scores below 5 generally indicate problems in executive control that could interfere with successful independent living. Some people have problems with executive functions but have
relatively intact memory skills. When this occurs, the subtype of executive MCI may be indicated.
Total Complex Attention Factor (CAF) Score: 7
Complex attention is an essential cognitive domain. It includes immediate, selective, and divided attention skills. It is highly associated with the ability to perform basic and complex activities of daily living. The Complex Attention Factor score
(CAF) predicts ADL and IADL abilities and empirically measures the attentional skills necessary for independent functioning. Lower scores are associated with weaker performance, whereas higher scores suggest stronger abilities. Scores of 7-8 are
within the normal/adequate range, and persons with these results may demonstrate higher levels of independence. Scores below 7 indicate likely attentional deficits, the need for more supervision or assistance, and higher risk for safety concerns and
errors when completing basic or complex functional tasks. Please note that the CAF has a low performance threshold so most people should score in the adequate range.
Total Cognitive Task Gamma Operator (CTM) Score: 20
The Cognitive Task Gamma Operator (CTM) integrates an individual�s performance in three primary cognitive domains: contextual memory, executive control functions, and complex attention. Together, these skills are among the most powerful predictors of rodriguez
outcomes, including performance of basic and complex activities of daily living. The CTM score informs clinicians and families about impairments that can impact functional performance and highlight each individual�s risk for falls and adverse events
at home, rehospitalizations and the need for residential support. The CTM score should be considered as part of a comprehensive assessment and be used to guide treatment interventions that address these underlying skill areas and promote a safe and
sustainable transition to the next level of care.
The CTM is an important clinical tool that informs the plan of care and should be used to identify persons at higher risk for cognitively related functional deficits. When interpreting the CTM score, it is helpful to recognize what scores indicate
normal functioning and what scores indicate higher risk. CTM scores in the 26-30 range are within normal limits. These patients have relatively low risk. CTM scores in the 20-25 range indicate moderate risk. CTM scores below 20 indicate relatively
high risk. For patients with scores in the moderate or high-risk ranges, clinicians are advised to assess for functional deficits, home safety, and behavioral problems, creating person centered treatment plans that address these rodriguez areas of concern.
--- NOTE | 2024-11-06 12:59 | W.PN.CARDCBS ---
Addendum entered and electronically signed by Margaret Mon DO 11/06/24 19:21:
I saw and examined the patient.
The Dimensional Engineer's note was reviewed and I agree with the note.
Comment: Patient was seen and examined. Overall feels better with less shortness of breath. Denies tachycardia or palpitations.
GEN: No distress, awake, Ox3, 2 L nc
HEENT: mmm
LUNGS: Bronchovesicular breath sounds, fine crackles right base
CV: irreg, irreg 2/6 syst murmur
ABD: soft, BS+, NT/ND
EXT: No edema
Plan:
Acute heart failure with reduced ejection fraction in the setting of rapid atrial fibrillation
- proBNP 26,800
-Amio 400 mg 3 times daily load started 11/04/2024 with EKG today showing prolonged QT. No further amiodarone today. Amiodarone will be decreased to 200 mg twice daily if EKG is improved tomorrow.
- Initial presented ECG 11/03/2024 A-fib with chronic LBBB and heart rate is 95
- Continue anticoagulation with Eliquis
-Discussed possible cardioversion on Saturday if patient remains in atrial fibrillation; no absolute contraindications. Patient is agreeable.
- She does have significant mitral regurgitation on echocardiogram and new LV dysfunction with EF 25% down from 40 to 45% on echo 09/18/2024 and there is concern that her heart failure could be related to severe MR/TR
-cont Toprol-XL 100 mg a.m. and 50 mg p.m.
-Outpatient dose of Eliquis 2.5 mg BID (age 89, Cre 1.3, wt 52.6 kg) has been continued
-Optimize goal-directed medical therapy for cardiomyopathy�
-Continue IV diuresis with Lasix 40 mg IV twice daily. I's/O's, daily weights. Follow renal function and electrolytes. Keep K greater than 4, mag greater than 2
-Reconsider starting ARB or Entresto, If renal function remained stable with diuresis
-Will plan to start SGLT2 inhibitor this admission
-will transfer her to IVU at request of her primary superior court clerk
Original Note:
Today's Communication / Plan
-
decrease Amio tomorrow to 200 mg bid
cont diuresis
replete K
check repeat EKG
Impression / Plan
-
PCP: Dr. Shaina Hernandez
Flight Crew Time Clerk: Dr Tae Mercado
Impression
Admitted with acute HF and A-fib 11/03/2024
Recent ER visit for rapid A-fib and successful CV 10/09/2024
Recent admission for acute HF and rapid A-fib 09/18/2024 until 09/23/2024
Recurrence of paroxysmal A-fib
Paroxysmal A-fib
Chronic amiodarone therapy
Chronic Eliquis OAC
Acute on chronic HFrEF
h/o NICM EF was 40 to 45% by echo 2018 and then improved to 59% by echo 2023
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
HTN
Left bundle branch block
Dyslipidemia
Valvular heart disease
GERD
Osteoporosis
Arthritis
Fatigue
Decreased appetite
GLORIA 10/22/2018: Mildly reduced LV systolic function EF 40-45%, biatrial enlargement, moderate eccentric MR, moderate TR, mild AI
Echo 11/06/2023: Small LV size, EF 59%, mild concentric LVH with discrete upper septal thickening, grade 2 diastolic dysfunction, normal RV size and function, moderate MR, mild AI, moderate to severe TR with PASP 74 mmHg
Echo 09/18/2024: Normal LV size, mildly reduced LV systolic function with EF 40-45%, septal, inferior hypokinesis, mild concentric LVH, normal RV size and function, MAC, mild MS, mod to severe MR, mild AI, moderate TR with PASP 65 to 70 mmHg
Plan:
-Patient presented 11/03/2024 with increased SOB and was found to be in recurrent A-fib along with acute HF. proBNP 26,800-her highest BNP on record. Of note previous admit 09/18/2024- 09/23/2024 with acute HFrEF (proBNP 15,600) and rapid A-fib, Amio
uptitrated with plan for outpt CV, then presented to ED in afib and had CV in ED 10/09/2024.
- Initial presented ECG 11/03/2024 A-fib with chronic LBBB and heart rate is 95
-recurrent afib despite chronic amiodarone therapy including re-loading of amiodarone in early September.
--reloading AMio now at higher dose of Amio 400 mg tid-started 11/04/2024 and continue 400 mg TID through today 11/06/2024. Tomorrow, 11/07/2024 decrease Amio to 200 mg bid. If she does not spontaneously convert to NSR, plan for CV 11/09/2024
-Telemetry reviewed by me shows ongoing A-fib with heart rates in 90s.
-check repeat EKG on Amio load
-there was consideration and discussion with EP about changing antiarrhythmic from Amio to Tikosyn, which would need a 2-week washout of amiodarone prior to starting Tikosyn. CrCl is 25 using a Cre of 1.3 on11/04/24 labs and would be Tikosyn 125 mcg
bid dose. Utimately it was decided to reload amiodarone at higher dose as above and consider repeat cardioversion this admission.
- She does have significant mitral regurgitation on echocardiogram and new LV dysfunction with EF 25% down from 40 to 45% on echo 09/18/2024 and there is concern that her heart failure could be related to severe MR/TR
-cont Toprol-XL 100 mg a.m. and 50 mg p.m.
-Outpatient dose of Eliquis 2.5 mg BID (age 89, Cre 1.3, wt 52.6 kg) has been continued
-Patient presented in acute HF with a proBNP at her highest level ever at 26,800, but also is lower than previous dry weight at 116 lbs on 11/04/2024.
-Patient was taking Lasix 20 mg PO daily DATA CONVERSION ANALYST and was ordered Lasix 40 mg IV daily initially, but dose increased to 40 mg IV BID on 11/04/2024. Wt now down 6 lbs since admission to 110 lbs.
-creat stable 1.1
-K 3.6. She is on KCl 10 meq daily in home setting and got extra KCl 20 meq 11/05/24. Will give extra KCl 40 meq now -ordered
-Follow labs on a daily basis and will need to establish a new dry weight
-Patient is not chronically on ORALIA/ARB/ARNI/aldosterone antagonist due to CKD
-Patient has not been interested in SGLT2 inhibitor in the past
-will transfer her to IVU at request of her primary superior court clerk
Progress Note - Flight Crew Time Clerk
Subjective
Date of Service: November 06, 2024
less SOB
remains in afib
wt down 5 lbs overnight
Objective
Labs:
11/06/24 07:59
11/06/24 07:59
Labs
Hgb 11.0 g/dL (12.0-16.0) L 11/06/24 07:59
Hct 34.1 % (37.0-47.0) L 11/06/24 07:59
Plt Count 254 10^3/uL (130-400) 11/06/24 07:59
PT 20.6 Sec (11.4-14.6) H 11/03/24 14:26
INR 1.74 11/03/24 14:26
APTT 30.4 Sec (23.4-35.0) 11/03/24 14:26
Sodium 139 mmol/L (135-145) 11/06/24 07:59
Potassium 3.6 mmol/L (3.5-5.1) 11/06/24 07:59
BUN 36 mg/dl (7-17) H 11/06/24 07:59
Creatinine 1.1 mg/dL (0.6-1.0) H 11/06/24 07:59
Glucose 89 mg/dl (70-99) 11/06/24 07:59
Troponins
11/03/24 11/03/24
14:26 17:20
Troponin I 0.033 0.031
Vital Signs and I&O:
Vital Signs
Temp Pulse Resp BP Pulse Ox
97.4 F 83 20 115/69 99
11/06/24 11:45 11/06/24 11:45 11/06/24 11:45 11/06/24 11:45 11/06/24 11:45
Vital Signs
Temp Pulse Resp BP Pulse Ox
97.4 F 83 20 115/69 99
11/06/24 11:45 11/06/24 11:45 11/06/24 11:45 11/06/24 11:45 11/06/24 11:45
Intake & Output
11/04/24 11/05/24 11/06/24 11/07/24
06:59 06:59 06:59 06:59
Intake Total 1140 / 1140 1020 / 1020
Output Total 300 / 300 1400 / 1400 1630 / 1630 250 / 250
Balance -300 / -300 -260 / -260 -610 / -610 -250 / -250
Physical Exam
Physical Exam
GEN: No distress, awake, Ox3
HEENT: supple, anicteric, mmm
LUNGS: CTA, no wheezes/rales
CV: irreg, irreg 2/6 syst murmur
ABD: soft, BS+, NT/ND
EXT: No edema
NEURO: Gross non-focal
SKIN: No rash
[2024-11-06] MEDS: KCL 40 MEQ PO (13:24)
--- NOTE | 2024-11-06 14:01 | W.PN.HOSP.TC ---
Today's Communication/Plan
-
Transfer to IVU
Continue with IV Lasix
Continue with amiodarone load
Assessment / Plan
Assessment / Plan
#A-fib with RVR
#Hx chronic LBBB left bundle branch block
-EKG with A-fib. Left bundle branch block
- History of cardioversion 2 weeks ago
- On Amiodarone, Eliquis - dose of amio increased
- On Metoprolol
#acute hypoxic respiratory failure secondary Acute exacerbation of CHF
-Patient requiring 2 L of oxygen, continue supplemental oxygen to keep sat >95
-Wean as tolerated
-I/O, daily weights
-reduced ef 2%
-cont IV Lasix - wt improving
-Fluid restrict
-BNP 28441
- Cardiology input noted
# Transient confusion -11/05 night . Cognitive decline intermittently in last month ? TME from acute dz ? .
CT head neg for acute intracranial findings
Remains Non focal neurologically
No confusion last night.Monitor for now
Would probably need neuropsychological testing for dementia dx once acute cardiac issues are stabalized.
# HTN�essential
- cont metoprolol
#CKD3a
-Continue to monitor
- Follow Cr closely while on IV diuresis
#HLD
- cont atorvastatin
#CODE- FULL
#DVT prophylaxis- eliquis
Discussed with cardiology MECHANICAL ENGINEERING PROFESSOR
TX to IVU per card
Portions of this chart may have been created with voice recognition software. Occasional wrong word or 'sound alike' substitutions may have occurred due to the inherent limitations of voice recognition software.
Anticipated Discharge: > 48 hours
Subjective/Interval History
-
Date of Service: November 06, 2024
No confusion or agitation overnight.
Patient alert and oriented to place person, day and month and year.
Denies shortness of breath or chest pain. No palpitations. No dizziness.
Objective Data
-
Labs:
Laboratory Results
11/06/24
07:59
WBC 10.3
Hgb 11.0 L
Hct 34.1 L
Plt Count 254
Sodium 139
Potassium 3.6
Chloride 104
Carbon Dioxide 25
BUN 36 H
Creatinine 1.1 H
Glucose 89
Calcium 8.4
Vital Signs:
Vital Signs
Temp Pulse Resp BP Pulse Ox
97.4 F 83 20 115/69 99
11/06/24 11:45 11/06/24 11:45 11/06/24 11:45 11/06/24 11:45 11/06/24 11:45
I&O
11/05/24 11/06/24 11/07/24
06:59 06:59 06:59
Intake Total 1140 / 1140 1020 / 1020
Output Total 1400 / 1400 1630 / 1630 250 / 250
Balance -260 / -260 -610 / -610 -250 / -250
Physical Exam
-
General: Comfortable
Respiratory: Clear to Auscultation and Non Labored Respirations; Negative Accessory Resp Muscle Use
Cardiac: S1/S2 and Irregular Rhythm; Negative Tachycardic
GI: Soft
Neuro: AO x 3
Psych: Calm; Negative Confused
Data Reviewed
-
Labs: Labs Reviewed by me
--- NOTE | 2024-11-06 15:33 | W.PN.UPDATE ---
Update Note
Progress Note Update
EKG today for QTc on Amiodarone loadin msec. Pt has underlying LBBB. QTc has ranged 452-561msec over past month. Pt has been on Amiodarone for yrs but dose recently uptitrated first to 200 mg bid during 09/2024 admission to [facility], and now to
400 mg tid for past 3 days - she has rec'd 7 doses = 2.8 gm load. Will stop Amiodarone for now, resume in a.m. at lower dose of 200 mg once a day as long as QTc improved. Check EKG in a.m. prior to Amio dose.
[2024-11-06] MEDS: TYLENOL 650 MG PO ×2 (17:50→23:57)
--- NOTE | 2024-11-06 18:15 | PTCARENOTE ---
Addendum entered by Cherelle Naranjo RN 11/06/24 19:20:
Pt also with episodes of rapid shallow breathing, breath sounds clear, 96% on 4l. Pt also appears anxious, pts daughter states that she took herself off anxiety medicines a year ago.
Original Note:
Pt transferred via wheelchair from 4th floor to IVU. Pt OOB to bed with one assist using a walker. Pt oriented to place and person only but easily oriented to time. Pt later OOB to bedside commode with assist of one and then she curled up and tipped
over slightly on the commode. Pt alert, reported feeling dizzy and nauseous ( she reports this nausea happens sometimes). Pt helped into bed, BP 119/88. Pt also reported 8/10 middle back pain. notified, pt given tylenol. Pt is at high
risk to fall, all fall precautions in place. Will monitor closely. Telemetry shows atrial fib with LBBB.
--- NOTE | 2024-11-06 20:43 | PTCARENOTE ---
Rec'd pt at change of shift. PT AAO*3, however forgetful at times. Pt denies any pain or discomfort and declines food when offered. PT assisted heavily with one to the bedside commode and very weak. Pt resting with call romero in reach, bed/chair
alarm active. Pt agreed to call for staff assistance before ambulating. Plan of care ongoing, see MAR and flowchart for full pt care and assessment.
After attempting to urinate pt did not produce any urine. Bladder scanned for less than 18 ML's. Pt aware and plan of care ongoing.
[2024-11-06] MEDS: MELATONIN 3 MG PO (22:53)
[2024-11-07] VITALS (8 sets, daily range): BP systolic 96–133; BP diastolic 42–86; BMI 20.2
[2024-11-07 05:07] LABS: Blood Urea Nitrogen 45 mg/dl (7-17); Calcium 8.7 mg/dl (8.4-10.2); Carbon Dioxide 24 mmol/L (22-30); Chloride 103 mmol/L (98-107); Estimated Creatinine Clearance 22 ml/min; Glucose 127 mg/dl (70-99); Magnesium 2.3 mg/dl (1.6-2.3); Potassium 4.8 mmol/L (3.5-5.1); Sodium 137 mmol/L (135-145); eGFR 36.41
--- NOTE | 2024-11-07 08:44 | W.PN.CARDCBS ---
Addendum entered and electronically signed by Tae Mercado DO 11/07/24 09:28:
I saw and examined the patient.
The Pulper's note was reviewed and I agree with the note.
Comment:
Plan:
-Patient presented 11/03/2024 with increased SOB and was found to be in recurrent A-fib along with acute HF. proBNP 26,800-her highest BNP on record. Of note previous admit 09/18/2024- 09/23/2024 with acute HFrEF (proBNP 15,600) and rapid A-fib, Amio
uptitrated with plan for outpt CV, then presented to ED in afib and had CV in ED 10/09/2024. Initial presented ECG 11/03/2024 A-fib with chronic LBBB and heart rate is 95
Hold Amiodarone in setting of rising QTc.
She spontaneously converted this AM to sinus
Reduce Metoprolol to 25 mg BID, she had been on 100 mg daily as outpt. Will likely titrate up beta bowen as her bp will tolerate
Consider addition of Lisinopril for CM in setting of aFib and MR if bp will tolerate and pending cr improvement.
Outpatient dose of Eliquis 2.5 mg BID (age 89, Cre 1.3, wt 52.6 kg) has been continued
There was consideration and discussion with EP about changing antiarrhythmic from Amio to Tikosyn, which would need a 2-week washout of amiodarone prior to starting Tikosyn. CrCl is 25 using a Cre of 1.3 on11/04/24 labs and would be Tikosyn 125 mcg
bid dose and less likely to be effective. Ultimately it was decided to reload amiodarone at higher dose as above and consider repeat cardioversion this admission.
Reviewed with pt and her daughter that she does have significant mitral regurgitation on echocardiogram and worsening LV dysfunction with EF 25% down from 40 to 45% on echo 09/18/2024 and there is concern that her heart failure could be related to
severe MR/TR. Options are limited give severe calcification of the mitral valve apparatus.
Her wt is down and she may be approaching euvolemia. Hold lasix with rising cr although she has baseline renal insufficiency.
Wt is down overall 3 lbs since admit in this frail pt.
K improved today to 4.8 with repletion of extra 40 meq 11/06.
Patient was not chronically on ORALIA/ARB/ARNI/aldosterone antagonist due to CKD
Patient has not been interested in SGLT2 inhibitor in the past
Discussed with nursing
Original Note:
Today's Communication / Plan
-
-increase Toprol to 100 mg in am, cont 50 mg in pm
holding diuretics today
Impression / Plan
-
PCP: Dr. Shaina Hernandez
Staffing Specialist: Dr Tae Mercado
Impression
Admitted with acute HF and A-fib 11/03/2024
Recent ER visit for rapid A-fib and successful CV 10/09/2024
Recent admission for acute HF and rapid A-fib 09/18/2024 until 09/23/2024
Recurrence of paroxysmal A-fib
Paroxysmal A-fib
Chronic amiodarone therapy
Chronic Eliquis OAC
Prolonged QT
Acute on chronic HFrEF
h/o NICM EF was 40 to 45% by echo 2018 and then improved to 59% by echo 2023
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
HTN
Left bundle branch block
Dyslipidemia
Valvular heart disease
GERD
Osteoporosis
Arthritis
Fatigue
Decreased appetite
GLORIA 10/22/2018: Mildly reduced LV systolic function EF 40-45%, biatrial enlargement, moderate eccentric MR, moderate TR, mild AI
Echo 11/06/2023: Small LV size, EF 59%, mild concentric LVH with discrete upper septal thickening, grade 2 diastolic dysfunction, normal RV size and function, moderate MR, mild AI, moderate to severe TR with PASP 74 mmHg
Echo 09/18/2024: Normal LV size, mildly reduced LV systolic function with EF 40-45%, septal, inferior hypokinesis, mild concentric LVH, normal RV size and function, MAC, mild MS, mod to severe MR, mild AI, moderate TR with PASP 65 to 70 mmHg
Plan:
-Patient presented 11/03/2024 with increased SOB and was found to be in recurrent A-fib along with acute HF. proBNP 26,800-her highest BNP on record. Of note previous admit 09/18/2024- 09/23/2024 with acute HFrEF (proBNP 15,600) and rapid A-fib, Amio
uptitrated with plan for outpt CV, then presented to ED in afib and had CV in ED 10/09/2024.
- Initial presented ECG 11/03/2024 A-fib with chronic LBBB and heart rate is 95
-recurrent afib despite chronic amiodarone therapy including re-loading of amiodarone in early September.
--reloaded AMio at higher dose of Amio 400 mg tid-started 11/04/2024. Rec'd 7 doses and QT became prolonged 11/06/2024 at 591 msec (has underlying LBBB). Amio stopped 07/06/2024.
--Repeat EKG today 07/07/2024: afib, LBBB, Qtc 606 msec. Hold Amio and monitor daily EKG. Still plan for CV 11/09/2024
-Telemetry reviewed by me shows ongoing A-fib with heart rates in 90s-110s.
-uptitrate Toprol to 100 mg in am, 50 mg in pm for better rate control. - Placed order for extra 50 mg now
-Outpatient dose of Eliquis 2.5 mg BID (age 89, Cre 1.3, wt 52.6 kg) has been continued
-there was consideration and discussion with EP about changing antiarrhythmic from Amio to Tikosyn, which would need a 2-week washout of amiodarone prior to starting Tikosyn. CrCl is 25 using a Cre of 1.3 on11/04/24 labs and would be Tikosyn 125 mcg
bid dose. Utimately it was decided to reload amiodarone at higher dose as above and consider repeat cardioversion this admission.
- She does have significant mitral regurgitation on echocardiogram and new LV dysfunction with EF 25% down from 40 to 45% on echo 09/18/2024 and there is concern that her heart failure could be related to severe MR/TR
-Patient presented in acute HF with a proBNP at her highest level ever at 26,800, but also is lower than previous dry weight at 116 lbs on 11/04/2024.
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 Wt now down 3 lbs since admission to 113 lbs. Had dropped to 110 lbs 11/06, up 3 lbs overnight
-creat starting to increase, 1.4 today 11/07, has been 1.1.
-hold Lasix
-K improved today to 4.8 with repletion of extra 40 meq 11/06.
-Follow labs on a daily basis and will need to establish a new dry weight
-Patient is not chronically on ORALIA/ARB/ARNI/aldosterone antagonist due to CKD
-Patient has not been interested in SGLT2 inhibitor in the past
Progress Note - Staffing Specialist
Subjective
Date of Service: November 07, 2024
Amio stopped due to prolonged QT
pt c/o palps, HRs 90s-110s
no SOB, CP
Objective
Labs:
11/06/24 07:59
11/07/24 04:17
Labs
Hgb 11.0 g/dL (12.0-16.0) L 11/06/24 07:59
Hct 34.1 % (37.0-47.0) L 11/06/24 07:59
Plt Count 254 10^3/uL (130-400) 11/06/24 07:59
PT 20.6 Sec (11.4-14.6) H 11/03/24 14:26
INR 1.74 11/03/24 14:26
APTT 30.4 Sec (23.4-35.0) 11/03/24 14:26
Sodium 137 mmol/L (135-145) 11/07/24 04:17
Potassium 4.8 mmol/L (3.5-5.1) D 11/07/24 04:17
BUN 45 mg/dl (7-17) H 11/07/24 04:17
Creatinine 1.4 mg/dL (0.6-1.0) H 11/07/24 04:17
Glucose 127 mg/dl (70-99) H 11/07/24 04:17
Vital Signs and I&O:
Vital Signs
Temp Pulse Resp BP Pulse Ox
98.7 F 111 24 123/86 97
11/07/24 04:18 11/07/24 07:22 11/07/24 07:19 11/07/24 07:22 11/07/24 07:19
Vital Signs
Temp Pulse Resp BP Pulse Ox
98.7 F 111 24 123/86 97
11/07/24 04:18 11/07/24 07:22 11/07/24 07:19 11/07/24 07:22 11/07/24 07:19
Intake & Output
11/05/24 11/06/24 11/07/24 11/08/24
06:59 06:59 06:59 06:59
Intake Total 1140 / 1140 1020 / 1020 480 / 480
Output Total 1400 / 1400 1630 / 1630 350 / 350
Balance -260 / -260 -610 / -610 130 / 130
Physical Exam
Physical Exam
GEN: No distress, awake, Ox3
HEENT: supple, anicteric, mmm
LUNGS: CTA, no wheezes/rales
CV: tachy, 2/6 syst murmur
ABD: soft, BS+, NT/ND
EXT: No edema, feet cool
NEURO: Gross non-focal
SKIN: No rash
[2024-11-07] MEDS: OCUVITE SOFTGEL 1 CAP PO ×2 (09:01→19:54)
[2024-11-07] MEDS: LIPITOR 10 MG PO (09:01)
[2024-11-07] MEDS: ELIQUIS 2.5 MG PO ×2 (09:02→19:54)
[2024-11-07] MEDS: LASIX IV (09:28)
[2024-11-07] MEDS: TOPROL XL PO (09:28)
[2024-11-07] MEDS: TOPROL XL 25 MG PO ×2 (09:28→19:54)
--- NOTE | 2024-11-07 09:48 | W.PN.HOSP.TC ---
Today's Communication/Plan
-
Updated two-view chest x-ray
Continue to hold Lasix
Amiodarone per cardiology
Check CRP
Assessment / Plan
Assessment / Plan
#A-fib with RVR
#Hx chronic LBBB left bundle branch block
-EKG with A-fib. Left bundle branch block
- History of cardioversion 2 weeks ago
- On Amiodarone, Eliquis - dose of amio increased
- On Metoprolol
- CW SR today ,follow on tele
#acute hypoxic respiratory failure secondary Acute exacerbation of CHF
-Patient requiring 2 L of oxygen, continue supplemental oxygen to keep sat >95
-Wean as tolerated
-I/O, daily weights
-reduced ef 2%
-cont IV Lasix - wt improved minmal but Cr jumped- Diuretics on hold today
-Fluid restrict
-BNP 99109
- Cardiology input noted
- SaO2 dropped to 76 percent on room air today. She is still has crackles though clinically felt volume depleted with rising creatinine. Showed bilateral perihilar and basilar opacities on admission felt to fluid. Not acting like infection-no
fever, white count is normal and no significant cough. With persistence of crackles and hypoxia clinical concern for primary lung process-repeat chest x-ray. Check inflammatory marker.
# Transient confusion -11/05 night . Cognitive decline intermittently in last month ? TME from acute dz ? .
CT head neg for acute intracranial findings
Remains Non focal neurologically
No confusion last night.Monitor for now
Would probably need neuropsychological testing for dementia dx once acute cardiac issues are stabalized.
# HTN�essential
- cont metoprolol
#CKD3a
-Continue to monitor-rising creatinine noted
- Follow Cr closely diuretics on hold now;
#HLD
- cont atorvastatin
#CODE- FULL
#DVT prophylaxis- eliquis
Discussed with cardiology and IVU RN
Portions of this chart may have been created with voice recognition software. Occasional wrong word or 'sound alike' substitutions may have occurred due to the inherent limitations of voice recognition software.
Anticipated Discharge: > 48 hours
Subjective/Interval History
-
Date of Service: November 07, 2024
Just converted to sinus rhythm this morning at around 9 AM.
RN just noticed that be having short bursts of increased respiratory rate, not eating much and very weak.
Patient denies much of cough. She says occasionally a cough. Notices breathing to be rapid at times. Denies any chest pain.
Denies any fever or chills.
RN noticed no confusion at times witty.
Objective Data
-
Labs:
Laboratory Results
11/07/24
04:17
Sodium 137
Potassium 4.8 D
Chloride 103
Carbon Dioxide 24
BUN 45 H
Creatinine 1.4 H
Glucose 127 H
Calcium 8.7
Vital Signs:
Vital Signs
Temp Pulse Resp BP Pulse Ox
97.5 F 58 24 111/76 76
11/07/24 09:08 11/07/24 09:28 11/07/24 09:08 11/07/24 09:28 11/07/24 09:47
I&O
11/06/24 11/07/24 11/08/24
06:59 06:59 06:59
Intake Total 1020 / 1020 480 / 480 240 / 240
Output Total 1630 / 1630 350 / 350
Balance -610 / -610 130 / 130 240 / 240
Physical Exam
-
General: No Apparent Distress
HEENT: Moist Mucous Membranes
Respiratory: Crackles (BL lower zones), Non Labored Respirations and Accessory Resp Muscle Use; Negative Wheezes
Cardiac: Regular Rhythm and S1/S2; Negative Tachycardic
GI: Soft
Neuro: AO x 3
Psych: Calm; Negative Agitated
Data Reviewed
-
Labs: Labs Reviewed by me
[2024-11-07] MEDS: VIBRAMYCIN 100 MG PO ×2 (11:12→22:08)
[2024-11-07] MEDS: TYLENOL 650 MG PO ×2 (11:40→23:08)
--- NOTE | 2024-11-07 11:41 | PTCARENOTE ---
patient c/o middle back pain, Tylenol po given as ordered.
[2024-11-07 12:23] LABS: Procalcitonin 0.29 ng/ml (0.0-0.25)
[2024-11-07] MEDS: ROCEPHIN 1000 MG IV (12:48)
[2024-11-07] MEDS: STERILE WATER FOR INJECTION 10 ML IV (12:49)
[2024-11-07] MEDS: KCL PO (16:42)
[2024-11-07 17:26] LABS: ALT (SGPT) 53 U/L (0-35); AST (SGOT) 84 U/L (14-36); Albumin 3.5 g/dl (3.5-5.0); Alkaline Phosphatase 135 U/L (38-126); Total Protein 6.4 g/dl (6.3-8.2)
[2024-11-07 17:48] LABS: C-Reactive Protein 127.30 mg/L (0.0-10.00)
--- NOTE | 2024-11-07 18:37 | PTCARENOTE ---
Pt converted to sinus balbina @09:00 with rates @50's. Pt reported feeling 'terrible' with prolonged shallow rapid breaths. Pt seen by , room air oxygen sat. 76%, pt very SOB. Pt placed on 4L 98%, CXR done in dept., RUL infiltrate noted. Blood
Cx sent X2 sets, pt started on antibiotics. Pt afebrile, no cough at this time. Pt encouraged to eat, very poor appetite. Pt incontinent of small amounts of urine, bladder scanned for 19mls post void residual, pt unable to tolerate purewick device.
Pt OOB to commode with assist of one, she is very weak and able to sit for only one to two minutes. Pt too weak to stand for more than 30 seconds, all fall risk precautions in place. Pt's daughter updated on her condition by . Pt's daughter
wants to care for her at her home.
[2024-11-07] MEDS: MELATONIN 3 MG PO (22:08)
--- NOTE | 2024-11-07 23:50 | PTCARENOTE ---
Pt OOB frequently this shift to use BSC, assist x 1, very weak. Voids very small amounts of urine at a time and has some incontinence, post void bladder scan showing 83 ml. SOB & tachypneic at times, pulse ox on 4L 98%. Forgetful and disoriented
to time, also impulsive to get up, bed alarm on. Remains in NSR 50's-60's.
[2024-11-08] VITALS (7 sets, daily range): BP systolic 120–138; BP diastolic 56–71; BMI 20.4
[2024-11-08 03:06] LABS: Hematocrit 32.6 % (37.0-47.0); Hemoglobin 10.7 g/dL (12.0-16.0); Mean Corp Hgb Conc. 32.8 g/dL (33.0-37.0); Mean Corpuscular Volume 84.9 fL (81.0-99.0); Platelet Count 280 10^3/uL (130-400); Red Cell Dist. Width 15.2 % (11.5-14.5)
[2024-11-08 03:26] LABS: Blood Urea Nitrogen 57 mg/dl (7-17); Calcium 9.1 mg/dl (8.4-10.2); Carbon Dioxide 21 mmol/L (22-30); Chloride 102 mmol/L (98-107); Estimated Creatinine Clearance 18 ml/min; Glucose 111 mg/dl (70-99); Magnesium 2.2 mg/dl (1.6-2.3); Potassium 4.8 mmol/L (3.5-5.1); Sodium 134 mmol/L (135-145); eGFR 26.93
[2024-11-08] MEDS: DESENEX/MITRAZOL/ZEASORB 1 APPLIC TOPICAL ×2 (08:08→20:07)
[2024-11-08] MEDS: KCL 10 MEQ PO (08:09)
[2024-11-08] MEDS: TOPROL XL 25 MG PO ×2 (08:09→20:08)
[2024-11-08] MEDS: OCUVITE SOFTGEL 1 CAP PO ×2 (08:09→20:08)
[2024-11-08] MEDS: VIBRAMYCIN 100 MG PO ×2 (08:09→20:08)
[2024-11-08] MEDS: ELIQUIS 2.5 MG PO (08:09)
[2024-11-08] MEDS: LIPITOR 10 MG PO (08:09)
[2024-11-08] MEDS: TIGAN 100 MG IM (09:00)
--- NOTE | 2024-11-08 09:26 | W.PN.CARDCBS ---
Today's Communication / Plan
-
Right heart cath tomorrow
Hold lasix
Consider resume amiodarone tomorrow if QT continues to improve
Impression / Plan
-
.
PCP: Dr. Shaina Hernandez
Crew Team Member: Dr Tae Mercado
Impression
Admitted with acute on chronic HF and A-fib 11/03/2024
Recent ER visit for rapid A-fib and successful CV 10/09/2024
Recent admission for acute HF and rapid A-fib 09/18/2024 until 09/23/2024
Recurrence of paroxysmal A-fib, spontaneously converted
Chronic amiodarone therapy on hold with prolonged QT
Chronic Eliquis OAC
Severe MR and TR
Hx NICM EF 26%, was 40 to 45% by echo 2018 and then improved to 59% by echo 2023
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
Left bundle branch block
Dyslipidemia
HTN
Decreased appetite / nausea and vomiting / failure to thrive
GERD
Osteoporosis
Arthritis
Fatigue
GLORIA 10/22/2018: Mildly reduced LV systolic function EF 40-45%, biatrial enlargement, moderate eccentric MR, moderate TR, mild AI
Echo 11/06/2023: Small LV size, EF 59%, mild concentric LVH with discrete upper septal thickening, grade 2 diastolic dysfunction, normal RV size and function, moderate MR, mild AI, moderate to severe TR with PASP 74 mmHg
Echo 09/18/2024: Normal LV size, mildly reduced LV systolic function with EF 40-45%, septal, inferior hypokinesis, mild concentric LVH, normal RV size and function, MAC, mild MS, mod to severe MR, mild AI, moderate TR with PASP 65 to 70 mmHg
Echo 11/04/2024: EF 26% with mild AR, severe global hypokinesis, dsypkinesis of septal wall, severe MR, severe TR with PASP 57 mmhg
Plan:
-Patient presented 11/03/2024 with increased SOB and was found to be in recurrent A-fib along with acute HF. proBNP 26,800-her highest BNP on record. Of note previous admit 09/18/2024- 09/23/2024 with acute HFrEF (proBNP 15,600) and rapid A-fib, Amio
uptitrated with plan for outpt CV, then presented to ED in afib and had CV in ED 10/09/2024. Initial presented ECG 11/03/2024 A-fib with chronic LBBB and heart rate is 95
Cont to hold Amiodarone with QT prolongation, which is improving by EKG Nov 08
Consider resuming amiodarone lower dose Nov 09.
Remains in sinus after spontaneously converting Nov 07
Metoprolol reduced to 25 mg BID, she had been on 100 mg daily as outpt. Will likely titrate up beta bowen as her bp will tolerate
With rising cr, discussed right heart cath to better eval volume status AM.
Hold Eliquis.
May need to consider inotrope
Not currently candidate for Lisinopril given rising cr.
Outpatient dose of Eliquis 2.5 mg BID (age 89, Cre 1.3, wt 52.6 kg) on hold for RHC
There was consideration and discussion with EP about changing antiarrhythmic from Amio to Tikosyn, which would need a 2-week washout of amiodarone prior to starting Tikosyn. CrCl is 25 using a Cre of 1.3 on11/04/24 labs and would be Tikosyn 125 mcg
bid dose and less likely to be effective. Ultimately it was decided to reload amiodarone at higher dose as above and consider repeat cardioversion this admission.
Have reviewed with pt and her daughter that she does have significant mitral regurgitation on echocardiogram and worsening LV dysfunction with EF 25% down from 40 to 45% on echo 09/18/2024 and there is concern that her heart failure could be related
to severe MR/TR. Options are limited give severe calcification of the mitral valve apparatus.
Her wt is down and she may be approaching euvolemia. Cont to hold lasix with rising cr although she has baseline renal insufficiency. Await right heart cath.
Wt is down overall since admit in this frail pt.
Patient was not chronically on ORALIA/ARB/ARNI/aldosterone antagonist due to CKD
Patient has not been interested in SGLT2 inhibitor in the past
Discussed with nursing and son at bedside. Explained in detail that pt is starting to fail and prognosis is poor.
Progress Note - Crew Team Member
Subjective
Date of Service: November 08, 2024
Pt seen and examined. She has nausea and vomiting. No chest pain or shortness of breath.
Objective
Labs:
11/08/24 02:50
11/08/24 02:50
Labs
Hgb 10.7 g/dL (12.0-16.0) L 11/08/24 02:50
Hct 32.6 % (37.0-47.0) L 11/08/24 02:50
Plt Count 280 10^3/uL (130-400) 11/08/24 02:50
PT 20.6 Sec (11.4-14.6) H 11/03/24 14:26
INR 1.74 11/03/24 14:26
APTT 30.4 Sec (23.4-35.0) 11/03/24 14:26
Sodium 134 mmol/L (135-145) L 11/08/24 02:50
Potassium 4.8 mmol/L (3.5-5.1) 11/08/24 02:50
BUN 57 mg/dl (7-17) H 11/08/24 02:50
Creatinine 1.8 mg/dL (0.6-1.0) H 11/08/24 02:50
Glucose 111 mg/dl (70-99) H 11/08/24 02:50
Vital Signs and I&O:
Vital Signs
Temp Pulse Resp BP Pulse Ox
97.2 F 62 16 120/56 93
11/08/24 07:32 11/08/24 08:09 11/08/24 07:32 11/08/24 08:09 11/08/24 07:55
Vital Signs
Temp Pulse Resp BP Pulse Ox
97.2 F 62 16 120/56 93
11/08/24 07:32 11/08/24 08:09 11/08/24 07:32 11/08/24 08:09 11/08/24 07:55
Intake & Output
11/06/24 11/07/24 11/08/24 11/09/24
06:59 06:59 06:59 06:59
Intake Total 1020 / 1020 480 / 480 800 / 800 120 / 120
Output Total 1630 / 1630 350 / 350 100 / 100
Balance -610 / -610 130 / 130 700 / 700 120 / 120
Physical Exam
Physical Exam
General: No acute distress, AAOX3
Neck: Negative JVD
Heart: Regular, Negative S3 positive S1/S2, Negative S4, holosystolic murmur grade II/
Lungs: CTA b/l, negative wheezes/rales/rhonchi
Abd: Positive BS, NT/ND, neg rebound/rigidity/guarding
Ext: Negative cyanosis/clubbing/edema
Neuro: nonfocal
--- NOTE | 2024-11-08 09:43 | W.PN.HOSP.TC ---
Today's Communication/Plan
-
Continue to hold Lasix and follow creatinine and LFTs
Continue with empirical antibiotics
Start on antiemetics-Tigan because of prolonged QTc
Assessment / Plan
Assessment / Plan
#A-fib with RVR
#Hx chronic LBBB left bundle branch block
-EKG with A-fib. Left bundle branch block
- History of cardioversion 2 weeks ago
- On Amiodarone, Eliquis - dose of amio increased
- On Metoprolol
- CW SR now
#acute hypoxic respiratory failure secondary Acute exacerbation of CHF
-Patient now requiring 4 L of oxygen
-Wean as tolerated
-I/O, daily weights -wt up today
-reduced ef 28%
-Diuretics on hold today with rising creatinine. Now her weight is going up and she has got abnormal LFTs.
-Fluid restrict
-BNP 05112
- Discussed with cardiology-tentative plans for right heart cath on Saturday
#Right upper lobe opacity with progression-SaO2 dropped to 76 percent on room air yesterday. She had still has crackles though clinically felt volume depleted with rising creatinine. Showed bilateral perihilar and basilar opacities on admission
felt to fluid. Not acting like infection-no fever, white count is normal and no significant cough.
Remains afebrile. White count 10.9. Increased inflammatory markers noted. Procalcitonin 0.29 which is just above the upper limit of normal but also she has renal failure .
Unclear if this is pneumonia or inflammatory infiltrate. Continue with empirical antibiotics for now and follow progress
#Abnormal LFTs-new LFT elevation since admission. Unclear at if this is related to congestion or another process. Patient has nausea but no abdominal pain. Treat symptomatically. Right heart catheter might help if this is passive congestion.
# Transient confusion -11/05 night . Cognitive decline intermittently in last month ? TME from acute dz ? .
CT head neg for acute intracranial findings
Remains Non focal neurologically
No confusion last night.Monitor for now
Would probably need neuropsychological testing for dementia dx once acute cardiac issues are stabalized.
# HTN�essential
- cont metoprolol
# Acute kidney injury on CKD3a
-Continue to monitor-rising creatinine noted. Diuretics on hold.
- Follow Cr closely diuretics on hold now;
#HLD
- cont atorvastatin
#CODE- FULL
#DVT prophylaxis- eliquis
Discussed with cardiology and IVU RN
Discussed with cardiology this morning
Total time spent on today's encounter was 52 minutes which included time spent in counseling the patient/family regarding diagnosis and treatment plan as listed above, goals of care, and symptom management. Case was discussed with nursing staff,
specialists, and care coordinators/case management. All labs and imaging personally reviewed by me. Remainder the time spent in detailed review of previous records, lab data, imaging, and other medical provider documentation.
Portions of this chart may have been created with voice recognition software. Occasional wrong word or 'sound alike' substitutions may have occurred due to the inherent limitations of voice recognition software.
Anticipated Discharge: > 48 hours
Subjective/Interval History
-
Date of Service: November 08, 2024
She feels weak today.
No appetite. Feeling nauseous today. No abdominal pain or diarrhea.
Lying in the left lateral position and comfortable with the breathing.
Denies any chest pain.
' I think i am done with this but i wont give up'
She was mentioning to the RN as well that she is done apparently but did say that she hasnt given up yet !
Objective Data
-
Labs:
Laboratory Results
11/08/24
02:50
WBC 10.9 H
Hgb 10.7 L
Hct 32.6 L
Plt Count 280
Sodium 134 L
Potassium 4.8
Chloride 102
Carbon Dioxide 21 L
BUN 57 H
Creatinine 1.8 H
Glucose 111 H
Calcium 9.1
Vital Signs:
Vital Signs
Temp Pulse Resp BP Pulse Ox
97.2 F 62 16 120/56 93
11/08/24 07:32 11/08/24 08:09 11/08/24 07:32 11/08/24 08:09 11/08/24 07:55
I&O
11/07/24 11/08/24 11/09/24
06:59 06:59 06:59
Intake Total 480 / 480 800 / 800 120 / 120
Output Total 350 / 350 100 / 100
Balance 130 / 130 700 / 700 120 / 120
Physical Exam
-
General: No Apparent Distress
Respiratory: Crackles (no obvious crackles today but not taking deep breaths) and Non Labored Respirations; Negative Wheezes or Accessory Resp Muscle Use
Cardiac: Regular Rhythm and S1/S2; Negative Tachycardic
GI: Soft and Nontender
Neuro: AO x 3
Psych: Calm; Negative Agitated
Data Reviewed
-
Labs: Labs Reviewed by me
--- NOTE | 2024-11-08 12:17 | PTOTSP ---
Speech Therapy Evaluation
Pt seen for bedside swallow evaluation. RN reported pt with increased nausea this morning. Very limited PO trials due to nausea. Pt managed x1 bite of regular solids and x2 sips of thin liquids via straw with functional oral phase and no overt s/sx
of aspiration. Pt at an elevated risk for aspiration given CHF exacerbation, SOB, and general weakness.
Recommendation:
1. Regular solids (IDDSI 7) and thin liquids (IDDSI 0)
2. Medication as best tolerated
3. Standard aspiration precautions
4. ASSOCIATE SALES MANAGER to follow briefly to ensure diet tolerance
[2024-11-08] MEDS: ROCEPHIN 1000 MG IV (12:49)
[2024-11-08] MEDS: STERILE WATER FOR INJECTION 10 ML IV (12:49)
--- NOTE | 2024-11-08 16:00 | PTCARENOTE ---
pt shouting from room for RN. RN went to assess pt. pt is stating that she 'doesn't feel good and that she wants to throw herself out the window.' RN repeatedly tried to understand why pt was not feeling well and pt stated I do not know, I just want
to kill myself.' Notified Dr. Baer, One to One in place for suicide risk. Safety precautions in place per protocol. Pt now resting in bed. call romero within reach.
[2024-11-08] MEDS: XANAX 0.5 MG PO (16:19)
[2024-11-08] MEDS: MELATONIN 3 MG PO (20:10)
[2024-11-09] MEDS: XANAX 0.5 MG PO (00:40)
--- NOTE | 2024-11-09 01:04 | PTCARENOTE ---
Pt. oriented AAOx1-2, disoriented to time and forgets that she's in the hospital. VSS, NSR on the monitor. Makes frequent attempts to get OOB without assist, assist x 1 to BSC, very weak. Verbalized once that she 'won't be here in the morning
because I'm just going to kill myself' . Reassurance given, PCT at bedside for 1:1 observation. Xanax given for agitation/restlessness. NPO pc MN for cath in AM.
[2024-11-09 02:24] VITALS: BP 125/66
[2024-11-09 03:09] LABS: Hematocrit 32.2 % (37.0-47.0); Hemoglobin 10.6 g/dL (12.0-16.0); Mean Corp Hgb Conc. 32.9 g/dL (33.0-37.0); Mean Corpuscular Volume 85.2 fL (81.0-99.0); Platelet Count 275 10^3/uL (130-400); Red Cell Dist. Width 15.3 % (11.5-14.5)
[2024-11-09 03:27] VITALS: BMI 20.7
[2024-11-09 03:36] LABS: ALT (SGPT) 129 U/L (0-35); AST (SGOT) 117 U/L (14-36); Albumin 3.2 g/dl (3.5-5.0); Alkaline Phosphatase 267 U/L (38-126); Blood Urea Nitrogen 56 mg/dl (7-17); Calcium 9.0 mg/dl (8.4-10.2); Carbon Dioxide 24 mmol/L (22-30); Chloride 102 mmol/L (98-107); Estimated Creatinine Clearance 20 ml/min; Glucose 102 mg/dl (70-99); Magnesium 2.3 mg/dl (1.6-2.3); Potassium 4.7 mmol/L (3.5-5.1); Sodium 135 mmol/L (135-145); Total Protein 6.1 g/dl (6.3-8.2); eGFR 31.02
[2024-11-09 03:53] LABS: C-Reactive Protein 153.50 mg/L (0.0-10.00)
[2024-11-09 07:08] VITALS: BP 128/50
[2024-11-09] MEDS: LIPITOR 10 MG PO (09:01)
[2024-11-09] MEDS: KCL 10 MEQ PO (09:01)
[2024-11-09] MEDS: TOPROL XL 25 MG PO (09:02)
[2024-11-09] MEDS: VIBRAMYCIN 100 MG PO (09:02)
[2024-11-09] MEDS: OCUVITE SOFTGEL 1 CAP PO (09:02)
[2024-11-09] MEDS: DESENEX/MITRAZOL/ZEASORB 1 APPLIC TOPICAL (09:08)
[2024-11-09 11:36] VITALS: BP 147/54
--- NOTE | 2024-11-09 12:04 | CM ---
Chart reviewed. Patient's daughter at bedside. Patient is independent of ADLS, lives alone in a 1 STH, 0 DME, owns a RW. Patient and daughter agreeable to Hospice. Referral sent to Hospice. Plan is for the patient to return home or her
daughters house on Hospice. CM to follow
--- NOTE | 2024-11-09 12:15 | W.PN.HOSP.TC ---
Today's Communication/Plan
-
psych eval; continue 1:1 at present
RHC cancelled after GOC discussion with myself and Cardiology, patient/family and plan is for hospice consultation; home setting per family. CM aware.
Assessment / Plan
Assessment / Plan
Assessment:
A-fib with RVR
Hx chronic LBBB left bundle branch block
- EKG with A-fib. Left bundle branch block
- History of cardioversion 2 weeks ago
- continue Metoprolol/Eliquis
- Amiodarone stopped
Acute hypoxic respiratory failure secondary Acute exacerbation of CHF - on 4L NC
- s/p diuretic course with fluctuating renal function
- RHC was planned for today, but after goals of care discussion; family opts for hospice evaluation. RHC cancelled.
RUL pneumonia
- continue Rocephin Doxy, day 04/24
Abnormal LFTs-new LFT elevation since admission. Unclear at if this is related to congestion or another process.
- Patient has nausea but no abdominal pain.
- no further trending with hospice plan
Transient confusion -11/05 night . Cognitive decline intermittently in last month ? TME from acute dz ? .
- CT head neg for acute intracranial findings
- Remains Non focal neurologically
- No confusion at present. Monitor for now
- could be dementia forming as well
Suicidal ideations
- continue 1:1
- psych evaluation
Essential HTN
- cont metoprolol
Acute kidney injury on CKD3a
- rising creatinine noted. Diuretics on hold.
- no further trending with hospice plan
HLD
- cont atorvastatin
DVT ppx: Eliquis
Code: DNR/DNI
Dispo: d/w daughter Francia regarding GOC, patient poor QOL. She presented advance directives which state DNR/DNI and no procedures, initially agreeable to proceed with RHC for diagnostic/prognostication but ultimately wants hospice eval regardless
so spoke to Cardiology (Dr. Mercado) - now RHC cancelled. hospice consulted. Home setting desired. CM consulted.
Anticipated Discharge: 24 - 48 hours
Subjective/Interval History
-
Date of Service: November 09, 2024
yesterday was suicidal per RNs - wanting to jump out of window and take pills to 'end it'
this AM feels 'leary' but does seem to agree that her focus of care is towards comfort
daughter interested in hospice and later asked for RHC to be cancelled
Objective Data
-
Labs:
Laboratory Results
11/09/24
02:46
WBC 10.3
Hgb 10.6 L
Hct 32.2 L
Plt Count 275
Sodium 135
Potassium 4.7
Chloride 102
Carbon Dioxide 24
BUN 56 H
Creatinine 1.6 H
Glucose 102 H
Calcium 9.0
Total Bilirubin 1.6 H
AST 117 H
ALT 129 H
Alkaline Phosphatase 267 H
Vital Signs:
Vital Signs
Temp Pulse Resp BP Pulse Ox
97.6 F 62 20 128/50 95
11/09/24 02:25 11/09/24 09:02 11/09/24 11:35 11/09/24 09:02 11/09/24 11:35
I&O
11/08/24 11/09/24 11/10/24
06:59 06:59 06:59
Intake Total 800 / 800 240 / 240
Output Total 100 / 100
Balance 700 / 700 240 / 240
Physical Exam
-
General: No Apparent Distress and Appears Chronically Ill
HEENT: Normocephalic and Atraumatic
Respiratory: Clear to Auscultation
Cardiac: Regular Rhythm and Murmur
GI: Soft
Neuro: AO x 3
Psych: Calm
Data Reviewed
-
Total Time Spent with Patient (in minutes): 44
Labs: Labs Reviewed by me
--- NOTE | 2024-11-09 12:57 | HOSPNOTE ---
Addendum entered by lElie Norman RN 11/09/24 14:40:
Spoke to daughter and we will be admitting patient inpatient hospice. Consents are signed and hospice chart will be started. Attending and CM aware.
Original Note:
Spoke with daughter going to meet in person. The plan is admit inpatient hospice since patient is requiring increase in oxygen and is now requiring IV morphine. I called admissions and will get hospice chart prepared. Patient will be moved to
[facility]. More information to follow after I speak with daughter in person.
[2024-11-09] MEDS: MORPHINE SULFATE 1 MG IV (12:58)
--- NOTE | 2024-11-09 13:44 | W.DCSUMMARY ---
Discharge Summary
Discharge Data
Date of Admission: 11/03/24
Date of Discharge: 11/09/24
-
Pending Results: No
Hospital Course
89 y/o F hx of HTN, CKD stage 3, A. Fib, chronic LBBB, chronic HFrEF, severe MR/TR, CAD, HLD, GERD, FTT presented with SOB, and reoccurrence of A. Fib. She ruled in for acute CHF and also was given a course of IV diuresis. Also was found to have
right upper lobe pneumonia and started on IV antibiotics. She was on 4L NC. A right heart cath was considered on 11/09 but after goals of care discussion with family; family opted against further procedures and wanted patient to transition to
hospice. Hospice evaluated the patient; patient qualified for inpatient hospice.
Patient did have suicidal ideations 24 hours prior to hospice discharge requiring 1:1; with hospice decision, psychiatry was notified.
Discharge Plan
-
Patient Disposition: Hospice - Inpatient
Discharge Diagnosis/Procedures: acute CHf, hypoxic respiratory failure in setting of severe MR, pneumonia
Condition: Serious
Diet: No restrictions
Activity: No restrictions
Other Services: Hospice
Referrals:
Maynor Grace DO [Family Provider, Family Practice]
Prescriptions:
Discontinued
PreserVision AREDS-2 1 EACH capsule
1 cap PO BID
atorvastatin 10 mg tablet
10 mg PO DAILY
Eliquis 2.5 mg Tablet
2.5 mg PO BID
metoprolol succinate 100 mg Tablet Extended Release 24 Hr
100 mg PO DAILY Qty: 60 0RF
furosemide 20 mg Tablet
20 mg PO DAILY Qty: 60 0RF
potassium chloride 8 mEq Tablet Extended Release
8 meq PO DAILY
amiodarone [Pacerone] 200 mg tablet
200 mg PO DAILY
Discharge Orders:
Discharge Patient (As Directed); Ordered 11/09/24
Ordered By: Amber Hendricks
Care Plan Goals
Care Plan Goals:
Problem: Readiness for enhanced knowledge related to diagnosis and treatment plan
Goal: Understand your diagnosis and treatment plan needs, including medications if applicable.
Instructions: Know your diagnosis, underlying causes and treatment plan options, including medications if applicable. Consult with your health care team to learn about your diagnosis and treatment plan, including medications if applicable.
Discharge Date and Time
Print Language: CITIZEN OF [place]
--- NOTE | 2024-11-09 14:31 | W.PN.CARDCBS ---
Today's Communication / Plan
-
Hospice eval
RHC canceled
Discussed with family.
Impression / Plan
-
.
PCP: Dr. Shaina Hernandez
Mammographer: Dr Tae Mercado
Impression
Admitted with acute on chronic HF and A-fib 11/03/2024
Recent ER visit for rapid A-fib and successful CV 10/09/2024
Recent admission for acute HF and rapid A-fib 09/18/2024 until 09/23/2024
Recurrence of paroxysmal A-fib, spontaneously converted
Chronic amiodarone therapy on hold with prolonged QT
Chronic Eliquis OAC
Severe MR and TR
Hx NICM EF 26%, was 40 to 45% by echo 2018 and then improved to 59% by echo 2023
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
Left bundle branch block
Dyslipidemia
HTN
Decreased appetite / nausea and vomiting / failure to thrive
GERD
Osteoporosis
Arthritis
Fatigue
GLORIA 10/22/2018: Mildly reduced LV systolic function EF 40-45%, biatrial enlargement, moderate eccentric MR, moderate TR, mild AI
Echo 11/06/2023: Small LV size, EF 59%, mild concentric LVH with discrete upper septal thickening, grade 2 diastolic dysfunction, normal RV size and function, moderate MR, mild AI, moderate to severe TR with PASP 74 mmHg
Echo 09/18/2024: Normal LV size, mildly reduced LV systolic function with EF 40-45%, septal, inferior hypokinesis, mild concentric LVH, normal RV size and function, MAC, mild MS, mod to severe MR, mild AI, moderate TR with PASP 65 to 70 mmHg
Echo 11/04/2024: EF 26% with mild AR, severe global hypokinesis, dsypkinesis of septal wall, severe MR, severe TR with PASP 57 mmhg
Plan:
-Patient presented 11/03/2024 with increased SOB and was found to be in recurrent A-fib along with acute HF. proBNP 26,800-her highest BNP on record. Of note previous admit 09/18/2024- 09/23/2024 with acute HFrEF (proBNP 15,600) and rapid A-fib, Amio
uptitrated with plan for outpt CV, then presented to ED in afib and had CV in ED 10/09/2024. Initial presented ECG 11/03/2024 A-fib with chronic LBBB and heart rate is 95
We had discussed right heart cath better eval fluid status but she has continued to decline over the last 24 hrs.
Given she has continued to decline, she and her daughter would prefer hospice and no further procedures.
Her cr has improved.
Had previuosly reviewed with pt and her daughter that she does have significant mitral regurgitation on echocardiogram and worsening LV dysfunction with EF 25% down from 40 to 45% on echo 09/18/2024 and there is concern that her heart failure could be
related to severe MR/TR. Options are limited give severe calcification of the mitral valve apparatus.
Cont to hold Amiodarone with QT prolongation, which is improved by EKGs Sept 21 and 22
Remains in sinus after spontaneously converting Sept 20
Cont Eliquis but could defer to hospice whether to continue this.
Cont Metoprolol at reduced dose of 25 mg BID, she had been on 100 mg daily as outpt.
Gave emotional support to her daughter. She and the patient were appreciative.
Discussed with family at bedside, nursing and primary service.
Progress Note - Mammographer
Subjective
Date of Service: November 09, 2024
Pt seen and examined. No complaints. No chest pain or shortness of breath.
Objective
Labs:
11/09/24 02:46
11/09/24 02:46
Labs
Hgb 10.6 g/dL (12.0-16.0) L 11/09/24 02:46
Hct 32.2 % (37.0-47.0) L 11/09/24 02:46
Plt Count 275 10^3/uL (130-400) 11/09/24 02:46
PT 20.6 Sec (11.4-14.6) H 11/03/24 14:26
INR 1.74 11/03/24 14:26
APTT 30.4 Sec (23.4-35.0) 11/03/24 14:26
Sodium 135 mmol/L (135-145) 11/09/24 02:46
Potassium 4.7 mmol/L (3.5-5.1) 11/09/24 02:46
BUN 56 mg/dl (7-17) H 11/09/24 02:46
Creatinine 1.6 mg/dL (0.6-1.0) H 11/09/24 02:46
Glucose 102 mg/dl (70-99) H 11/09/24 02:46
Vital Signs and I&O:
Vital Signs
Temp Pulse Resp BP Pulse Ox
97.6 F 62 20 128/50 95
11/09/24 02:25 11/09/24 09:02 11/09/24 11:35 11/09/24 09:02 11/09/24 11:35
Vital Signs
Temp Pulse Resp BP Pulse Ox
97.6 F 62 20 128/50 95
11/09/24 02:25 11/09/24 09:02 11/09/24 11:35 11/09/24 09:02 11/09/24 11:35
Intake & Output
11/07/24 11/08/24 11/09/24 11/10/24
06:59 06:59 06:59 06:59
Intake Total 480 / 480 800 / 800 240 / 240
Output Total 350 / 350 100 / 100
Balance 130 / 130 700 / 700 240 / 240
Physical Exam
Physical Exam
General: No acute distress, lethargic
Neck: Negative JVD
Heart: Regular, Negative S3 positive S1/S2, Negative S4, No murmur
Lungs: CTA b/l, negative wheezes/rales/rhonchi
Abd: Positive BS, NT/ND, neg rebound/rigidity/guarding
Ext: Negative cyanosis/clubbing/edema
Neuro: nonfocal
[2024-11-09] MEDS: STERILE WATER FOR INJECTION IV (14:42)
[2024-11-09] MEDS: ROCEPHIN IV (14:42)
--- NOTE | 2024-11-09 15:16 | PTCARENOTE ---
Pts right radial band is intact. pt c/o of pain in hand. pts hand is dusky but 02 sat 93. pt back from supervisor dental laboratory.
Pt is SR on the monitor, hr in the 70s, vss.
pts hand dusky and painful, right radial band 2mL removed. About 20 minutes later pt c/o 10/10 pain up her arm. Right forearm swollen and hard. rn help pressure for 10 minutes and then notified Priscilla Hoffman NP. At bedside to hold pressure. BP cuff
on to help hold pressure. Then taken off. Took band off, applied dressing and mario bandage. Notified pt of restrictions. Pain medication given as ordered, see documentation. call romero within reach.
--- NOTE | 2024-11-09 15:41 | PTCARENOTE ---
pt breathing became more labored. notified Dr. Hendricks, morphine given as order, see documentation.
== END 2024-11-09 15:57 | disposition hospice, inpatient (51) | DRG 291 ==
LOC: IVU 19:10
PROVIDERS: Internal Medicine; Nurse Practitioner; Nurse Practitioner Family; Physician Assistant Medical; Registered Nurse; ADMITTING PHYSICIAN Internal Medicine; EMERGENCY PHYSICIAN Emergency Medicine; FAMILY PHYSICIAN Family Medicine; OTHER PHYSICIAN Nuclear Medicine Nuclear Cardiology
DX: I13.0 Hypertensive heart and chronic kidney disease with heart failure and stage 1 through stage 4 chronic kidney disease, or unspecified chronic kidney disease (principal); G92.8 Other toxic encephalopathy; I50.23 Acute on chronic systolic (congestive) heart failure; J96.01 Acute respiratory failure with hypoxia; J18.9 Pneumonia, unspecified organism; R45.851 Suicidal ideations; F05 Delirium due to known physiological condition; I42.8 Other cardiomyopathies; I48.0 Paroxysmal atrial fibrillation; N18.31 Chronic kidney disease, stage 3a; I25.10 Atherosclerotic heart disease of native coronary artery without angina pectoris; K21.9 Gastro-esophageal reflux disease without esophagitis; I05.1 Rheumatic mitral insufficiency; I44.7 Left bundle-branch block, unspecified; M81.0 Age-related osteoporosis without current pathological fracture; M19.90 Unspecified osteoarthritis, unspecified site; E78.00 Pure hypercholesterolemia, unspecified; Z79.01 Long term (current) use of anticoagulants; Z79.899 Other long term (current) drug therapy
CPT/HCPCS: 70450; 71046; 80048; 80053; 80061; 80076; 81003; 81015; 83735; 83880; 84145; 84443; 84484; 85025; 85027; 85610; 85652; 85730; 86140; 87040; 87086; 92610; 93005; 93308; 93321; 93325; 96374; 97116; 97162; 97167; 97530; 97535; 99285

== ENCOUNTER 2024-11-09 15:58 | Inpatient (IN) | payer OTHER, SELFPAY ==
--- NOTE | 2024-11-09 13:48 | ADM.HSP ---
Admission - Hospice
History of Present Illness
inpatient hospice
Reason for Hospice Admission
89 y/o F hx of HTN, CKD stage 3, A. Fib, chronic LBBB, chronic HFrEF, severe MR/TR, CAD, HLD, GERD, FTT presented with SOB, and reoccurrence of A. Fib. She ruled in for acute CHF and also was given a course of IV diuresis. Also was found to have
right upper lobe pneumonia and started on IV antibiotics. She was on 4L NC. A right heart cath was considered on 11/09 but after goals of care discussion with family; family opted against further procedures and wanted patient to transition to
hospice. Hospice evaluated the patient; patient qualified for inpatient hospice.
Patient did have suicidal ideations 24 hours prior to hospice discharge requiring 1:1; with hospice decision, psychiatry was notified.
prior to hospice transition; patient was 90% on 6L NC with visible respiratory distress requiring IV Morphine.
Review of Systems
Unable to obtain full review of systems at this time due to: Acuity
Physical Exam
General: Respiratory Distress and Appears Chronically Ill
Respiratory: Clear to Auscultation and Crackles
Cardiology: Regular Rhythm and S1/S2
GI: Soft
Neuro: Awake and Alert
Psych: Calm
Assessment/Medication Plan
Assessment:
A-fib with RVR
Hx chronic LBBB left bundle branch block
Acute hypoxic respiratory failure secondary Acute HFrEF
RUL pneumonia
Abnormal LFTs
Transient confusion, possible early dementia
Suicidal ideations
Essential HTN
Acute kidney injury on CKD3a
HLD
Plan:
admit GIP hospice; d/w family and hospice team
2N floor bed preferred
IV morphine pushes with infusion prn protocol
IV Valium
other supportive measures for hospice
Data Reviewed
Labs: Labs Reviewed by me
--- NOTE | 2024-11-09 14:41 | HOSPNOTE ---
Patient will be admitted inpatient hospice and be moved to [facility]. Family in agreement with plan. Consents are signed and patient will be admitted inpatient hospice for severe shortness of breath and agitation. Patient was given one dose of morphine
with good relief however is on 6L. Patient will be seen daily.
[2024-11-09 16:33] VITALS: BP 123/72
--- NOTE | 2024-11-09 17:00 | PTCARENOTE ---
Patients chart flipped to hospice. Family at bedside, all questions answered.
[2024-11-09] MEDS: VALIUM INJECTION 2 MG IV (17:30)
[2024-11-09] MEDS: MORPHINE SULFATE 2 MG IV ×2 (17:31→20:31)
[2024-11-09 19:00] VITALS: BP 127/57
--- NOTE | 2024-11-09 21:42 | HOSPNOTE ---
Patient admitted to inpatient hospice. Patient will be seen daily. Emotional support provided.
[2024-11-10] MEDS: VALIUM INJECTION 2 MG IV ×3 (00:03→14:42)
[2024-11-10] MEDS: MORPHINE SULFATE 2 MG IV ×2 (00:03→23:41)
[2024-11-10 07:00] VITALS: BP 133/52
--- NOTE | 2024-11-10 10:45 | W.PN.HOSP.TC ---
Today's Communication/Plan
-
continue current inpatient hospice level/care
Assessment / Plan
Assessment / Plan
Assessment:
A-fib with RVR
Hx chronic LBBB left bundle branch block
Acute hypoxic respiratory failure secondary Acute HFrEF
RUL pneumonia
Abnormal LFTs
Transient confusion, possible early dementia
Suicidal ideations
Essential HTN
Acute kidney injury on CKD3a
HLD
Plan:
continue GIP hospice; d/w family and hospice team
IV morphine pushes with infusion prn protocol
IV Valium
other supportive measures for hospice
Anticipated Discharge: 24 - 48 hours
Subjective/Interval History
-
Date of Service: November 10, 2024
received 3 morphine and 3 Valium doses in 24 hours
Objective Data
-
Vital Signs:
Vital Signs
Temp Pulse Resp BP Pulse Ox
97.5 F 64 16 133/52 95
11/10/24 07:00 11/10/24 07:00 11/10/24 07:00 11/10/24 07:00 11/10/24 09:52
I&O
11/09/24 11/10/24 11/11/24
06:59 06:59 06:59
Intake Total 120 / 120
Balance 120 / 120
Physical Exam
-
General: Respiratory Distress and Appears Chronically Ill
HEENT: Normocephalic and Atraumatic
Respiratory: Negative Wheezes
Cardiac: Regular Rhythm and S1/S2
GI: Soft
Neuro: Sedated
Psych: Calm
Data Reviewed
-
Total Time Spent with Patient (in minutes): 41
Labs: Labs Reviewed by me
[2024-11-10] MEDS: MORPHINE 100 IV (12:14)
--- NOTE | 2024-11-10 12:20 | HOSPNOTE ---
Patient has received multiple doses of morphine and will be started on a morphine drip step 1. Patient is on room air and is requiring IV medications for shortness of breath and agitation. Patient lethargic but does open eyes to voice. Patient does
have labored breathing however the drip will be started shortly. The patient will be seen daily by hospice and continues to meet inpatient criteria.
--- NOTE | 2024-11-10 13:38 | CM ---
Patient with inpatient hospice. CM will remain available to family and hospice team.
--- NOTE | 2024-11-10 14:13 | PTCARENOTE ---
Patient with no urine output. for 480. End of life Guy in place 16 fr as ordered. Md aware. no s/s of distress noted at this time. Hospice measurers in place. call romero within reach.
--- NOTE | 2024-11-10 15:05 | HOSPNOTE ---
Shannen was resting; she opened her eyes upon hearing her name. She said she was 'doing all right, but not feeling all right.' She did not describe any pain. No family was present. She was rather confused, kept asking for help to get to the
bathroom. The nurse came; Shannen continued to be agitated. Shannen asked about being on hospice; the nurse and this track surfacing machine operator discussed that with her. Group Leader [employer] Testing mentioned Shannen's service in Pastoral Care, and encouraged her to recall those
memories. Shannen welcomed prayer. Group Leader [employer] provided emotional and spiritual support through presence, dialogue, words of comfort and prayer. Provided another update to nurse after the visit. Update provided to daughter Francia by phone. Will
continue support through weekly visits.
--- NOTE | 2024-11-10 16:16 | HOSPNOTE ---
Pot Fluxer visited 89 year old patient to conduct Initial WIRER HELPER Assessment. Patient recently admitted onto Hospice Services and [facility] Level of Care with the Primary Diagnosis of Hypertensive Heart Disease with Hear Failure and CKD Stage 1-4.
Nurse reported patient's medication administered, crump placed, resting comfortably with daughter by bedside. WIRER HELPER greeted patient and patient's daughter Francia upon entering the room, introduced herself, and explain Dental Amalgam Processor role. Patient
trying to get out the bed stating she has to go to bathroom, Francia informed patient she can go because she has the crump. WIRER HELPER sat near patient's bed, rubbing her hand while talking to her. Patient reported she's from [place]. Patient reported she
has a large family of 10 siblings, they're dysfunctional and caring, they love each other. Patient denied pain and reported she felt like she was dying, unable to elaborate. She reported she's had a long long painful life, unable to elaborate.
Patient has a daughter Francia and 2 grandsons Casper and Theo who she reported are the vanda of her life. Patient reported theirs good people and bad people and family is kiera. Patient fidgeting with her armbands trying to remove them and asked
what is the purpose of them, WIRER HELPER responded they're used for identification so staff doesn't confuse her with other patients. Shannen requested for the [facility] to visit patient to pray with her. WIRER HELPER will contact [facility] to request a visit.
Patient reported she needs to go to the bathroom, WIRER HELPER encouraged patient to go as she has a crump. Patient reported she's weary, WIRER HELPER encouraged Patient to get some rest and asked patient is she wanted WIRER HELPER to asked the Nurse to give her something to
rest, Francia responded she can't have anything and requested to change places with WIRER HELPER to hold patient's hand. WIRER HELPER asked patient if she wanted WIRER HELPER to play some music, Patient responded no, she just wants to be quiet. Patient is Jain and
attended [place], and is enrolled for [employer] Donation. WIRER HELPER informed patient's Nurse of patient behaviors, she reported she will check on patient. Patient is alert to self, restless, and confused. Family appeared to be coping appropriately. Prayer and
Emotional Support Provided WIRER HELPER informed Francia that the [facility] Remy visited patient earlier today and will request another visit for prayer.
Patient meets [facility] criteria for SN assessments, management of pain, dyspnea, and anxiety/agitation requiring IV medications that could not be managed at home and/or in an Outpatient setting. Discharge Planning continues.
WIRER HELPER will provide supportive services and monitor for additional services once a week while on G[facility] Level of Care.
[2024-11-10 23:45] VITALS: BP 113/70
[2024-11-11 07:00] VITALS: BP 111/52
[2024-11-11] MEDS: VALIUM INJECTION 2 MG IV (08:50)
[2024-11-11] MEDS: ROBINUL 0.2 MG IV (08:50)
[2024-11-11] MEDS: MORPHINE SULFATE 2 MG IV ×4 (08:50→16:05)
--- NOTE | 2024-11-11 12:33 | HOSPNOTE ---
Shannen was sleeping comfortably, non-responsive. She did not show signs of pain. Daughter Francia was present. Francia shared background about her mother, who has always been loving and caring, dedicated to serving others. Francia welcomed prayer.
Steel Spar Operator provided emotional and spiritual support through presence, dialogue, gentle touch, Scripture reading and prayer. Will continue support through weekly visits.
--- NOTE | 2024-11-11 12:58 | HOSPNOTE ---
Patient appears much more comfortable and valium will be changed to q2 hours PRN for agitation. Patient is now on a morphine drip step2 and appears much more comfortable. Daughter is bedside. We discussed a crump catheter to be placed per end of
life protocol if needed. Patient continues to meet inpatient criteria for management of pain and shortness of breath and agitation. Patient continues to meet inpatient criteria for management of shortness of breath and agitation. Patient will be
seen daily.
--- NOTE | 2024-11-11 13:05 | W.PN.HOSP.TC ---
Today's Communication/Plan
-
maximize comfort; continue inpatient level
Assessment / Plan
Assessment / Plan
Assessment:
A-fib with RVR
Hx chronic LBBB left bundle branch block
Acute hypoxic respiratory failure secondary Acute HFrEF
RUL pneumonia
Abnormal LFTs
Transient confusion, possible early dementia
Suicidal ideations
Essential HTN
Acute kidney injury on CKD3a
HLD
Plan:
continue GIP hospice; d/w family and hospice team
IV morphine pushes with infusion prn protocol
IV Valium; change to q2hprn
other supportive measures for hospice
Anticipated Discharge: Within 24 hours
Subjective/Interval History
-
Date of Service: November 11, 2024
on morphine step 2
Objective Data
-
Vital Signs:
Vital Signs
Temp Pulse Resp BP Pulse Ox
97.8 F 81 16 111/52 99
11/11/24 07:00 11/11/24 07:00 11/11/24 07:00 11/11/24 07:00 11/11/24 07:00
I&O
11/10/24 11/11/24 11/12/24
06:59 06:59 06:59
Intake Total 120 / 120 410 / 410
Output Total 775 / 775
Balance 120 / 120 -365 / -365
Physical Exam
-
General: Comfortable
HEENT: Normocephalic and Atraumatic
Respiratory: Negative Wheezes
Cardiac: Regular Rhythm and S1/S2
GI: Soft
Neuro: AO x 3
Psych: Calm
Data Reviewed
-
Total Time Spent with Patient (in minutes): 41
Labs: Labs Reviewed by me
--- NOTE | 2024-11-11 14:39 | CM ---
CM following re: discharge planning.
Reviewed pt's chart,
Pt continue hospice care services with hospice [facility].
CM is available for emotional support.
[2024-11-11 19:00] VITALS: BP 77/47
[2024-11-11 23:17] VITALS: BP 73/43
--- NOTE | 2024-11-12 01:44 | W.PN.DEATH ---
Pronouncement of
-
Called to see patient to pronounce.
No spontaneous heart tones or respirations noted.
Patient not responsive to verbal stimuli.
Patient is pronounced .
Time of : 01:35
Date of : 11/12/24
Cause of : acute hypoxic respiratory failure secondary to Acute exacerbation of chronic heart failure, pneumonia, acute kidney injury on chronic kidney injury, atrial fibrillation.
Family Notified: Yes (Daughter notified)
--- NOTE | 2024-11-12 03:16 | PTCARENOTE ---
Addendum entered by Katelyn Rodriguez RN 11/12/24 06:57:
family stated body is to be donated to [facility] - called and left message [phone]. post mortem care competed. and body taken to morgue. rubber stamps and dies supervisor aware.
Addendum entered by Katelyn Rodriguez RN 11/12/24 05:01:
family stated that they are coming to see the patient
Original Note:
Pt at 0135 informed INDUSTRIAL WASTE INSPECTOR Leanne. INT and alisia removed. [facility] called.
== END 2024-11-12 01:35 | disposition expired | DRG 951 ==
LOC: 2 NORTH 15:58
PROVIDERS: ADMITTING PHYSICIAN Internal Medicine
DX: Z51.5 Encounter for palliative care (principal); I50.23 Acute on chronic systolic (congestive) heart failure; J18.9 Pneumonia, unspecified organism; J96.01 Acute respiratory failure with hypoxia; I48.20 Chronic atrial fibrillation, unspecified; I13.0 Hypertensive heart and chronic kidney disease with heart failure and stage 1 through stage 4 chronic kidney disease, or unspecified chronic kidney disease; N17.9 Acute kidney failure, unspecified; R45.851 Suicidal ideations; I25.10 Atherosclerotic heart disease of native coronary artery without angina pectoris; I44.7 Left bundle-branch block, unspecified; N18.31 Chronic kidney disease, stage 3a; K21.9 Gastro-esophageal reflux disease without esophagitis; E78.5 Hyperlipidemia, unspecified